=== PATIENT | male | born 1955 | race Caucasian/White ===

== ENCOUNTER → 2018-03-30 | Outpatient (CLI) | payer MEDICARE, OTHER ==
--- NOTE | 2018-03-31 12:01 | XR ---
EXAMINATION TYPE: XR tibia fibula RT DATE OF EXAM: 03/30/2018 COMPARISON: None HISTORY: Cellulitis right stump TECHNIQUE: Right tibia and fibula are examined in 2 views. 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 Soft tissues below the knee appear intact. Suspicious erosions to suggest osteomyelitis or not identified. Soft tissues appear normal. IMPRESSION: 1. No suspicious changes suggest osteomyelitis. 2. If additional evaluation is required, three-phase bone scan.
== END | disposition home or self-care (01) ==
LOC: RADXRMAIN 15:24
PROVIDERS: ATTEND Family Medicine
DX: L03.115 Cellulitis of right lower limb (principal)

== ENCOUNTER 2018-04-24 22:55 | Emergency (ER) | payer MEDICARE, OTHER ==
[2018-04-24 23:10] VITALS: RESP 16; TEMP 98.3
[2018-04-24] MEDS ORDERED: SODIUM CHLORIDE 0.9% 1,000 ML IV STA ×2 (23:22)
--- NOTE | 2018-04-24 23:28 | ED ---
Seizure HPI - General Chief Complaint: Seizure Stated Complaint: Seizure Time Seen by Provider: 04/24/18 22:59 Source: patient, EMS Mode of arrival: EMS Limitations: no limitations - History of Present Illness Initial Comments: Patient is a 62-year-old male presenting for seizure-like activity. The patient states that while he was at home and that 9:00. Nephew stated that he possibly had a seizure where he started turning blue and he is unsure if he was shaking. He states that he has had similar type symptoms about 4-5 months ago and currently is completely asymptomatic. He states that he does not abuse alcohol although he did in the past but is been long time since he has. - Related Data Allergies Allergy/AdvReac Type Severity Reaction Status Date / Time codeine Allergy Rash/Hives Verified 04/24/18 23:10 Review of Systems ROS Statement: Those systems with pertinent positive or pertinent negative responses have been documented in the HPI. Constitutional: Negative for chills, fatigue and fever. HENT: Negative for congestion. Respiratory: Negative for chest tightness, shortness of breath and wheezing. Negative for cough Cardiovascular: Negative for chest pain and palpitations. Gastrointestinal: Negative for abdominal pain. Negative for abdominal distention, diarrhea, nausea and vomiting. Genitourinary: Negative for dysuria. Musculoskeletal: Negative for back pain, neck pain and neck stiffness. Skin: Negative for color change. Neurological: Negative for dizziness, speech difficulty, weakness and light-hea dedness. Positive for seizure-like activity Psychiatric/Behavioral: Negative for agitation and confusion. Negative for anxiety ROS Other: All systems not noted in ROS Statement are negative. Past Medical History Additional Past Medical History / Comment(s): borderline hypertension and diabetes History of Any Multi-Drug Resistant Organisms: MRSA Past Surgical History: Back Surgery, Orthopedic Surgery Additional Past Surgical History / Comment(s): Bone grafts in feet, below the knee right amputation, larynx surgery Past Psychological History: No Psychological Hx Reported Smoking Status: Former smoker Past Alcohol Use History: Rare Past Drug Use History: None Reported General Exam - General Exam Comments Initial Comments: Constitutional: Pt appears well-developed and well-nourished. No distress. Head: Normocephalic and atraumatic. Eyes: EOM are normal. Neck: Normal range of motion. Neck supple. Cardiovascular: Normal rate, regular rhythm, S1 normal, S2 normal and normal heart sounds. Exam reveals no gallop and no friction rub. No murmur heard. Pulmonary/Chest: Effort normal and breath sounds normal. No tachypnea and no bradypnea. No respiratory distress. No wheezes or rales noted. Abdominal: Soft. Bowel sounds are normal. Pt exhibits no shifting dullness, no distension, no pulsatile liver, no fluid wave, no abdominal bruit and no ascites. There is no rigidity, no rebound, no guarding, no tenderness at McBurney's point and negative Ballard's sign. There is no tenderness. Musculoskeletal: Normal range of motion. Neurological: Pt is alert and oriented to person, place, and time. No cranial nerve deficit. Skin: Skin is warm and dry. No rash noted. Pt is not diaphoretic. No erythema. No pallor. Psychiatric: Pt has a normal mood and affect. Pt behavior is normal. Thought content normal. Limitations: no limitations Course Vital Signs 04/24/18 04/25/18 22:57 01:18 Temperature 98.3 F Pulse Rate 107 H 94 Respiratory 16 16 Rate Blood Pressure 153/94 142/92 O2 Sat by Pulse 88 L 95 Oximetry Medical Decision Making - Medical Decision Making Laboratory studies showed that there is no significant leukocytosis and a letter lites derangements and from a cardiac standpoint, EKG had no significant abnorma l findings and d-dimer was negative. Troponin was also noted to be negative. Original vital signs showed that the patient was hypoxic but this is not to be an error as subsequent vitals were unremarkable. Head CT was also performed and noted to be negative. Patient was questioned multiple times and stated that he did not take any significant medications other than his Keflex however, urine drug screen did test positive for methamphetamines, benzodiazepines and opiates. When questioned further, the patient currently stated that he did didn't remember taking benzodiazepines and opiates but no amphetamines. Nonetheless, the patient was extremely well-appearing and in no acute distress and it was agreed that the patient could follow up closely with PCP in next 1-2 days. Patient was agreeable to plan - Lab Data Result diagrams: 04/24/18 23:38 04/24/18 23:38 Lab Results 04/24/18 04/24/18 04/24/18 Range/Units 23:35 23:38 23:38 WBC 7.8 (3.8-10.6) k/uL RBC 4.77 (4.30-5.90) m/uL Hgb 14.5 (13.0-17.5) gm/dL Hct 45.2 (39.0-53.0) % MCV 94.6 (80.0-100.0) fL MCH 30.4 (25.0-35.0) pg MCHC 32.1 (31.0-37.0) g/dL RDW 14.9 (11.5-15.5) % Plt Count 280 (150-450) k/uL Neutrophils % 81 % Lymphocytes % 12 % Monocytes % 5 % Eosinophils % 0 % Basophils % 0 % Neutrophils # 6.3 (1.3-7.7) k/uL Lymphocytes # 0.9 L (1.0-4.8) k/uL Monocytes # 0.4 (0-1.0) k/uL Eosinophils # 0.0 (0-0.7) k/uL Basophils # 0.0 (0-0.2) k/uL D-Dimer (<0.60) mg/L FEU Sodium 134 L (137-145) mmol/L Potassium 3.7 (3.5-5.1) mmol/L Chloride 99 (98-107) mmol/L Carbon Dioxide 25 (22-30) mmol/L Anion Gap 10 mmol/L BUN 16 (9-20) mg/dL Creatinine 1.12 (0.66-1.25) mg/dL Est GFR (CKD-EPI)AfAm 82 (>60 ml/min/1.73 sqM) Est GFR (CKD-EPI)NonAf 71 (>60 ml/min/1.73 sqM) Glucose 152 H (74-99) mg/dL POC Glucose (mg/dL) (75-99) mg/dL POC Glu Line Mechanic ID Calcium 8.8 (8.4-10.2) mg/dL Total Bilirubin 0.6 (0.2-1.3) mg/dL AST 25 (17-59) U/L ALT 41 (21-72) U/L Alkaline Phosphatase 87 (38-126) U/L Troponin I (0.000-0.034) ng/mL Total Protein 7.0 (6.3-8.2) g/dL Albumin 4.1 (3.5-5.0) g/dL Urine Color Yellow Urine Appearance Clear (Clear) Urine pH 6.5 (5.0-8.0) Ur Specific [place] 1.017 (1.001-1.035) Urine Protein 1+ H (Negative) Urine Glucose (UA) Negative (Negative) Urine Ketones Negative (Negative) Urine Blood Negative (Negative) Urine Nitrite Negative (Negative) Urine Bilirubin Negative (Negative) Urine Urobilinogen <2.0 (<2.0) mg/dL Ur Leukocyte Esterase Negative (Negative) Urine WBC 2 (0-5) /hpf Hyaline Casts 4 H (0-2) /lpf Urine Mucus Rare H (None) /hpf Salicylates <1.0 mg/dL Urine Opiates Screen Detected H (NotDetected) Ur Oxycodone Screen Not Detected (NotDetected) Urine Methadone Screen Not Detected (NotDetected) Ur Propoxyphene Screen Not Detected (NotDetected) Acetaminophen <10.0 ug/mL Ur Barbiturates Screen Not Detected (NotDetected) U Tricyclic Antidepress Not Detected (NotDetected) Ur Phencyclidine Scrn Not Detected (NotDetected) Ur Amphetamines Screen Detected H (NotDetected) U Methamphetamines Scrn Detected H (NotDetected) U Benzodiazepines Scrn Detected H (NotDetected) Urine Cocaine Screen Not Detected (NotDetected) U Marijuana (THC) Screen Not Detected (NotDetected) Serum Alcohol <10 mg/dL 04/24/18 04/24/18 04/25/18 Range/Units 23:38 23:38 00:12 WBC (3.8-10.6) k/uL RBC (4.30-5.90) m/uL Hgb (13.0-17.5) gm/dL Hct (39.0-53.0) % MCV (80.0-100.0) fL MCH (25.0-35.0) pg MCHC (31.0-37.0) g/dL RDW (11.5-15.5) % Plt Count (150-450) k/uL Neutrophils % % Lymphocytes % % Monocytes % % Eosinophils % % Basophils % % Neutrophils # (1.3-7.7) k/uL Lymphocytes # (1.0-4.8) k/uL Monocytes # (0-1.0) k/uL Eosinophils # (0-0.7) k/uL Basophils # (0-0.2) k/uL D-Dimer 0.35 (<0.60) mg/L FEU Sodium (137-145) mmol/L Potassium (3.5-5.1) mmol/L Chloride (98-107) mmol/L Carbon Dioxide (22-30) mmol/L Anion Gap mmol/L BUN (9-20) mg/dL Creatinine (0.66-1.25) mg/dL Est GFR (CKD-EPI)AfAm (>60 ml/min/1.73 sqM) Est GFR (CKD-EPI)NonAf (>60 ml/min/1.73 sqM) Glucose (74-99) mg/dL POC Glucose (mg/dL) 123 H (75-99) mg/dL POC Glu Line Mechanic ID Shaneka Henriquez Calcium (8.4-10.2) mg/dL Total Bilirubin (0.2-1.3) mg/dL AST (17-59) U/L ALT (21-72) U/L Alkaline Phosphatase (38-126) U/L Troponin I <0.012 (0.000-0.034) ng/mL Total Protein (6.3-8.2) g/dL Albumin (3.5-5.0) g/dL Urine Color Urine Appearance (Clear) Urine pH (5.0-8.0) Ur Specific [place] (1.001-1.035) Urine Protein (Negative) Urine Glucose (UA) (Negative) Urine Ketones (Negative) Urine Blood (Negative) Urine Nitrite (Negative) Urine Bilirubin (Negative) Urine Urobilinogen (<2.0) mg/dL Ur Leukocyte Esterase (Negative) Urine WBC (0-5) /hpf Hyaline Casts (0-2) /lpf Urine Mucus (None) /hpf Salicylates mg/dL Urine Opiates Screen (NotDetected) Ur Oxycodone Screen (NotDetected) Urine Methadone Screen (NotDetected) Ur Propoxyphene Screen (NotDetected) Acetaminophen ug/mL Ur Barbiturates Screen (NotDetected) U Tricyclic Antidepress (NotDetected) Ur Phencyclidine Scrn (NotDetected) Ur Amphetamines Screen (NotDetected) U Methamphetamines Scrn (NotDetected) U Benzodiazepines Scrn (NotDetected) Urine Cocaine Screen (NotDetected) U Marijuana (THC) Screen (NotDetected) Serum Alcohol mg/dL - EKG Data EKG Comments: EKG shows sinus tachycardia with rate of 10 3 bpm, CA interval 142, QRS 90, QTC 471. There is no significant ST depressions or elevations. Disposition Clinical Impression: Seizure-like activity Disposition: HOME SELF-CARE Condition: Good Instructions (If sedation given, give patient instructions): Recurrent Seizures in Adults (ED) Is patient prescribed a controlled substance at d/c from ED?: No Referrals: Luis Alberto Amezcua DO [Primary Care Provider] - 1-2 days Time of Disposition: 01:34
[2018-04-24 23:57] LABS: Basophils % (A) 0 %; Eosinophils % (A) 0 %; HCT 45.2 % (39.0-53.0); HGB 14.5 gm/dL (13.0-17.5); Lymphocytes # (A) 0.9 k/uL (1.0-4.8); Lymphocytes % (A) 12 %; MCH 30.4 pg (25.0-35.0); MCHC 32.1 g/dL (31.0-37.0); MCV 94.6 fL (80.0-100.0); Mean Platelet Volume 6.6; Monocytes # (A) 0.4 k/uL (0-1.0); Monocytes % (A) 5 %; Neutrophils # (A) 6.3 k/uL (1.3-7.7); Neutrophils % (A) 81 %; Platelet Count 280 k/uL (150-450); RBC 4.77 m/uL (4.30-5.90); RDW 14.9 % (11.5-15.5); WBC 7.8 k/uL (3.8-10.6)
[2018-04-25 00:08] LABS: ALT 41 U/L (21-72); AST 25 U/L (17-59); Acetaminophen <10.0 ug/mL; Albumin 4.1 g/dL (3.5-5.0); Alcohol <10 mg/dL; Alkaline Phosphatase 87 U/L (38-126); Anion Gap 10 mmol/L; Blood Urea Nitrogen 16 mg/dL (9-20); Calcium 8.8 mg/dL (8.4-10.2); Carbon Dioxide 25 mmol/L (22-30); Chloride 99 mmol/L (98-107); Glucose 152 mg/dL (74-99); Potassium 3.7 mmol/L (3.5-5.1); Salicylate <1.0 mg/dL; Sodium 134 mmol/L (137-145); Total Bilirubin 0.6 mg/dL (0.2-1.3)
[2018-04-25 00:17] LABS: Glucose,Whole Blood 123 mg/dL (75-99)
--- NOTE | 2018-04-25 00:42 | XR ---
EXAM: XR Chest, 2 Views CLINICAL HISTORY: ITS.REASON XR Reason: Pain TECHNIQUE: Frontal and lateral views of the chest. COMPARISON: No relevant prior studies available. FINDINGS: Lungs: Unremarkable. No consolidation. Pleural space: Unremarkable. No pneumothorax. Heart: Unremarkable. No cardiomegaly. Mediastinum: Unremarkable. Bones/joints: No acute fracture. IMPRESSION: No acute findings.
--- NOTE | 2018-04-25 00:57 | CT ---
EXAM: CT Head Without Intravenous Contrast CLINICAL HISTORY: ITS.REASON CT Reason: seizure activity TECHNIQUE: Axial computed tomography images of the head/brain without intravenous contrast. CTDI is 49 mGy and DLP is 1133 mGy-cm. This CT exam was performed using one or more of the following dose reduction techniques: automated exposure control, adjustment of the mA and/or kV according to patient size, and/or use of iterative reconstruction technique. COMPARISON: No relevant prior studies available. FINDINGS: Brain: No hemorrhage. No edema. Ventricles: Unremarkable. No ventriculomegaly. Bones/joints: No acute fracture. Soft tissues: Unremarkable. Sinuses: No fluid levels. Mastoid air cells: Unremarkable as visualized. No mastoid effusion. IMPRESSION: No acute intracranial findings
[2018-04-25 01:04] LABS: Appearance,Urine Clear (Clear); Bilirubin,Urine Negative (Negative); Blood,Urine Negative (Negative); Color,Urine Yellow; Glucose,Urine (UA) Negative (Negative); Hyaline Casts,Urine 4 /lpf (0-2); Ketones,Urine Negative (Negative); Leukocyte Esterase,Urine Negative (Negative); Mucus,Urine Rare /hpf; Nitrite,Urine Negative (Negative); PH, Urine 6.5 (5.0-8.0); Protein,Urine 1+ (Negative); Specific Gravity,Urine 1.017 (1.001-1.035); Urobilinogen,Urine <2.0 mg/dL (<2.0); WBC,Urine 2 /hpf (0-5)
[2018-04-25 01:19] VITALS: BP 142/92; PULSE 94
[2018-04-25 01:21] LABS: Amphetamine Screen,Urine Detected (NotDetected); Barbiturate Screen,Urine Not Detected (NotDetected); Benzodiazepines Screen,Urine Detected (NotDetected); Cocaine Screen,Urine Not Detected (NotDetected); Methadone Screen, Urine Not Detected (NotDetected); Opiate Screen,Urine Detected (NotDetected); Oxycodone Screen, Urine Not Detected (NotDetected); Phencyclidine Screen,Urine Not Detected (NotDetected); Tricyclic Antidepressant,Urine Not Detected (NotDetected); Urn Cannabinoid Scrn Not Detected (NotDetected)
== END 2018-04-25 01:45 | disposition home or self-care (01) ==
LOC: EC 22:55
DX: R56.9 Unspecified convulsions (principal); R00.0 Tachycardia, unspecified; R82.5 Elevated urine levels of drugs, medicaments and biological substances; Z87.891 Personal history of nicotine dependence; Z88.5 Allergy status to narcotic agent; Z86.14 Personal history of Methicillin resistant Staphylococcus aureus infection; Z89.511 Acquired absence of right leg below knee
CPT/HCPCS: 36415 ×2; 93005; 85379; 80053; 84484; 85025; 81001; 80306; 83520 ×2; 71046; 70450; 99285; 96360; 96361; G0480; 80320

== ENCOUNTER 2020-04-05 18:42 | Inpatient (IN) | payer MEDICARE, OTHER ==
[2020-04-05] MEDS ORDERED: HYDROmorphone 0.5 MG/0.5 ML SYRINGE IVP STA ×2 (19:08→21:08)
[2020-04-05 19:28] LABS: Basophils # (A) 0.1 k/uL (0-0.2); Basophils % (A) 0 %; Eosinophils # (A) 0.1 k/uL (0-0.7); Eosinophils % (A) 1 %; HCT 43.1 % (39.0-53.0); Lymphocytes # (A) 0.7 k/uL (1.0-4.8); Lymphocytes % (A) 3 %; MCH 30.7 pg (25.0-35.0); MCHC 32.5 g/dL (31.0-37.0); MCV 94.6 fL (80.0-100.0); Mean Platelet Volume 8.4; Monocytes # (A) 0.9 k/uL (0-1.0); Monocytes % (A) 4 %; Neutrophils # (A) 22.2 k/uL (1.3-7.7); Neutrophils % (A) 92 %; Platelet Count 282 k/uL (150-450); RBC 4.56 m/uL (4.30-5.90); RDW 13.7 % (11.5-15.5)
[2020-04-05 19:40] LABS: Calcium 9.3 mg/dL (8.4-10.2); Total Bilirubin 1.2 mg/dL (0.2-1.3); Total Protein 6.6 g/dL (6.3-8.2)
[2020-04-05 19:44] LABS: INR 1.1 (<1.2); Prothrombin Time 11.5 sec (9.0-12.0)
[2020-04-05 20:05] LABS: Potassium 4.9 mmol/L (3.5-5.1)
--- NOTE | 2020-04-05 20:19 | ED ---
General Adult HPI - General Source: patient, family, RN notes reviewed, old records reviewed Mode of arrival: EMS Limitations: no limitations <Scottie Beckford - Last Filed: 04/05/20 21:37> <Karina Olsen - Last Filed: 04/05/20 23:51> - General Chief complaint: Psychiatric Symptoms Stated complaint: Mental Health Time Seen by Provider: 04/05/20 18:55 - History of Present Illness Initial comments: This is a 64-year-old male who presents to the emergency department after having cut both of his wrists and attempt at suicide. Patient states he did it because he is absolutely useless to his family and he wanted to . Patient complains of bilateral wrist pain but has no other complaints. According to EMS he was in the shower so was difficult to assess how much blood loss he had but it didn't appear that his right wrist was bleeding particularly heavy. Patient is not willing to state when this occurred. Patient denies any chest pain or difficulty breathing. Patient denies any abdominal pain patient nausea vomiting. Patient denies any ingestion of anything. (Scottie Beckford) - Related Data Home Medications Medication Instructions Recorded Confirmed Bumetanide 2 mg PO BID 04/05/20 04/05/20 Lisinopril [Zestril] 10 mg PO DAILY 04/05/20 04/05/20 Allergies Allergy/AdvReac Type Severity Reaction Status Date / Time codeine Allergy Rash/Hives Verified 04/05/20 21:57 Review of Systems ROS Other: All systems not noted in ROS Statement are negative. <Scottie Beckford - Last Filed: 04/05/20 21:37> ROS Other: All systems not noted in ROS Statement are negative. <Karina Olsen - Last Filed: 04/05/20 23:51> ROS Statement: Those systems with pertinent positive or pertinent negative responses have been documented in the HPI. Past Medical History Past Medical History: No Reported History Additional Past Medical History / Comment(s): borderline hypertension and diabetes History of Any Multi-Drug Resistant Organisms: MRSA Past Surgical History: Back Surgery, Orthopedic Surgery Additional Past Surgical History / Comment(s): Bone grafts in feet, below the knee right amputation, larynx surgery Past Psychological History: No Psychological Hx Reported Past Alcohol Use History: Rare Past Drug Use History: None Reported <Scottie Beckford - Last Filed: 04/05/20 21:37> General Exam Limitations: no limitations <Scottie Beckford - Last Filed: 04/05/20 21:37> - General Exam Comments Initial Comments: GENERAL: Patient is well-developed and well-nourished. Patient is nontoxic and well- hydrated and is in mild distress. ENT: Neck is soft and supple. No significant lymphadenopathy is noted. Oropharynx is clear. Moist mucous membranes. Neck has full range of motion without eliciting any pain. EYES: The sclera were anicteric and conjunctiva were pink and moist. Extraocular movements were intact and pupils were equal round and reactive to light. Eyelids were unremarkable. PULMONARY: Unlabored respirations. Good breath sounds bilaterally. No audible rales rhonchi or wheezing was noted. CARDIOVASCULAR: Patient is tachycardic at about 140 beats a minute. Patient has good cap refill bilateral hands. Patient has good manual arch pulse bilaterally as well ABDOMEN: Soft and nontender with normal bowel sounds. SKIN: Patient seems a little pale. Patient has 2 large lacerations over both wrists the right being deeper than the left with what appears to be some small arterial bleeds. Left wrist has a large laceration there appears to be some venous bleeding no arterial bleeding is noted. Patient has good capillary refill in both hands. The left laceration measures about 5 cm the right laceration also measures approximately 5 cm. NEUROLOGIC: Patient is alert and oriented x3. Cranial nerves II through XII are grossly intact. Motor and sensory are also intact. Normal speech, volume and content. Symmetrical smile. MUSCULOSKELETAL: Patient has a BKA on the right. LYMPHATICS: No significant lymphadenopathy is noted PSYCHIATRIC: Patient states he purposely cut both of his wrists and attempt at suicide (Scottie Beckford) Course Vital Signs 04/05/20 04/05/20 04/05/20 18:51 20:00 21:26 Temperature 96.0 F L Pulse Rate 140 H 80 108 H Respiratory 18 135 H 17 Rate Blood Pressure 132/81 131/87 135/80 O2 Sat by Pulse 92 L 100 94 L Oximetry 04/05/20 23:10 Temperature Pulse Rate 101 H Respiratory 18 Rate Blood Pressure 131/74 O2 Sat by Pulse 95 Oximetry Procedures - Laceration Laceration #1 Consent Obtained: verbal consent Indication: laceration Site: upper extremity (left wrist) Size (cm): 8 Description: linear Depth: arterial injury Anesthetic Used: lidocaine 1% Anesthesia Technique: local infiltration Amount (mls): 9 Pre-repair: irrigated extensively Type of Sutures: nylon (12), vicryl (3) Size of Sutures: 4-0 Technique: simple, interrupted Patient Tolerated Procedure: well, no complications Laceration #2 Consent Obtained: verbal consent Indication: laceration Site: upper extremity (Right) Size (cm): 10 Description: linear Depth: arterial injury Anesthetic Used: lidocaine 1% Anesthesia Technique: local infiltration Amount (mls): 10 Pre-repair: irrigated extensively Type of Sutures: nylon Size of Sutures: 4-0 Number of Sutures: 13 Technique: simple, interrupted Patient Tolerated Procedure: well, no complications <Karina Olsen - Last Filed: 04/05/20 23:51> Medical Decision Making - Lab Data Result diagrams: 04/05/20 19:21 04/05/20 19:21 <Scottie Beckford - Last Filed: 04/05/20 21:37> - Lab Data Result diagrams: 04/05/20 22:42 04/05/20 19:21 <Karina Olsen - Last Filed: 04/05/20 23:51> - Medical Decision Making EKG shows a sinus tachycardia at 146 bpm GA interval is 122 QRS 70 QT interval is 282 QTC is 439 per patient's EKG shows no ST segment elevation or depression. Chest x-ray shows no acute abnormality. I did a CT angiogram of the right upper extremity and according to the radiologist there was good flow into the hand. Patient did have good arch pulses bilaterally. Patient had good cap refill bilaterally. I spoke with Dr. Iraheta he agreed to admit the patient admitted the patient I consulted medicine from [facility] physician's. Spoke with Dr. garcia he agreed to be on consult. (Scottie Beckford) - Lab Data Lab Results 04/05/20 04/05/20 04/05/20 Range/Units 19:20 19:21 19:21 WBC 24.0 H (3.8-10.6) k/uL RBC 4.56 (4.30-5.90) m/uL Hgb 14.0 (13.0-17.5) gm/dL Hct 43.1 (39.0-53.0) % MCV 94.6 (80.0-100.0) fL MCH 30.7 (25.0-35.0) pg MCHC 32.5 (31.0-37.0) g/dL RDW 13.7 (11.5-15.5) % Plt Count 282 (150-450) k/uL MPV 8.4 Neutrophils % 92 % Lymphocytes % 3 % Monocytes % 4 % Eosinophils % 1 % Basophils % 0 % Neutrophils # 22.2 H (1.3-7.7) k/uL Lymphocytes # 0.7 L (1.0-4.8) k/uL Monocytes # 0.9 (0-1.0) k/uL Eosinophils # 0.1 (0-0.7) k/uL Basophils # 0.1 (0-0.2) k/uL PT 11.5 (9.0-12.0) sec INR 1.1 (<1.2) APTT 22.0 (22.0-30.0) sec Sodium (137-145) mmol/L Potassium (3.5-5.1) mmol/L Chloride (98-107) mmol/L Carbon Dioxide (22-30) mmol/L Anion Gap mmol/L BUN (9-20) mg/dL Creatinine (0.66-1.25) mg/dL Est GFR (CKD-EPI)AfAm (>60 ml/min/1.73 sqM) Est GFR (CKD-EPI)NonAf (>60 ml/min/1.73 sqM) Glucose (74-99) mg/dL Calcium (8.4-10.2) mg/dL Total Bilirubin (0.2-1.3) mg/dL AST (17-59) U/L ALT (4-49) U/L Alkaline Phosphatase (38-126) U/L Total Protein (6.3-8.2) g/dL Albumin (3.5-5.0) g/dL Salicylates mg/dL Urine Opiates Screen (NotDetected) Ur Oxycodone Screen (NotDetected) Urine Methadone Screen (NotDetected) Ur Propoxyphene Screen (NotDetected) Acetaminophen ug/mL Ur Barbiturates Screen (NotDetected) U Tricyclic Antidepress (NotDetected) Ur Phencyclidine Scrn (NotDetected) Ur Amphetamines Screen (NotDetected) U Methamphetamines Scrn (NotDetected) U Benzodiazepines Scrn (NotDetected) Urine Cocaine Screen (NotDetected) U Marijuana (THC) Screen (NotDetected) Blood Type A Positive Blood Type Confirm Blood Type Recheck No Previous Record Bld Type Recheck Status CABO Indicated Antibody Screen NEGATIVE Spec Expiration Date 04/08/2020 - 231904/05/20 04/05/20 04/05/20 Range/Units 19:21 19: 19: WBC (3.8-10.6) k/uL RBC (4.30-5.90) m/uL Hgb (13.0-17.5) gm/dL Hct (39.0-53.0) % MCV (80.0-100.0) fL MCH (25.0-35.0) pg MCHC (31.0-37.0) g/dL RDW (11.5-15.5) % Plt Count (150-450) k/uL MPV Neutrophils % % Lymphocytes % % Monocytes % % Eosinophils % % Basophils % % Neutrophils # (1.3-7.7) k/uL Lymphocytes # (1.0-4.8) k/uL Monocytes # (0-1.0) k/uL Eosinophils # (0-0.7) k/uL Basophils # (0-0.2) k/uL PT (9.0-12.0) sec INR (<1.2) APTT (22.0-30.0) sec Sodium 130 L (137-145) mmol/L Potassium 4.9 (3.5-5.1) mmol/L Chloride 94 L (98-107) mmol/L Carbon Dioxide 21 L (22-30) mmol/L Anion Gap 15 mmol/L BUN 26 H (9-20) mg/dL Creatinine 1.32 H (0.66-1.25) mg/dL Est GFR (CKD-EPI)AfAm 67 (>60 ml/min/1.73 sqM) Est GFR (CKD-EPI)NonAf 58 (>60 ml/min/1.73 sqM) Glucose 238 H (74-99) mg/dL Calcium 9.3 (8.4-10.2) mg/dL Total Bilirubin 1.2 (0.2-1.3) mg/dL AST 711 H (17-59) U/L ALT 3928 H (4-49) U/L Alkaline Phosphatase 93 (38-126) U/L Total Protein 6.6 (6.3-8.2) g/dL Albumin 4.0 (3.5-5.0) g/dL Salicylates <1.0 mg/dL Urine Opiates Screen (NotDetected) Ur Oxycodone Screen (NotDetected) Urine Methadone Screen (NotDetected) Ur Propoxyphene Screen (NotDetected) Acetaminophen <10.0 ug/mL Ur Barbiturates Screen (NotDetected) U Tricyclic Antidepress (NotDetected) Ur Phencyclidine Scrn (NotDetected) Ur Amphetamines Screen (NotDetected) U Methamphetamines Scrn (NotDetected) U Benzodiazepines Scrn (NotDetected) Urine Cocaine Screen (NotDetected) U Marijuana (THC) Screen (NotDetected) Blood Type Blood Type Confirm A Positive Blood Type Recheck Bld Type Recheck Status Antibody Screen Spec Expiration Date 04/05/20 Range/Units 20:31 WBC (3.8-10.6) k/uL RBC (4.30-5.90) m/uL Hgb (13.0-17.5) gm/dL Hct (39.0-53.0) % MCV (80.0-100.0) fL MCH (25.0-35.0) pg MCHC (31.0-37.0) g/dL RDW (11.5-15.5) % Plt Count (150-450) k/uL MPV Neutrophils % % Lymphocytes % % Monocytes % % Eosinophils % % Basophils % % Neutrophils # (1.3-7.7) k/uL Lymphocytes # (1.0-4.8) k/uL Monocytes # (0-1.0) k/uL Eosinophils # (0-0.7) k/uL Basophils # (0-0.2) k/uL PT (9.0-12.0) sec INR (<1.2) APTT (22.0-30.0) sec Sodium (137-145) mmol/L Potassium (3.5-5.1) mmol/L Chloride (98-107) mmol/L Carbon Dioxide (22-30) mmol/L Anion Gap mmol/L BUN (9-20) mg/dL Creatinine (0.66-1.25) mg/dL Est GFR (CKD-EPI)AfAm (>60 ml/min/1.73 sqM) Est GFR (CKD-EPI)NonAf (>60 ml/min/1.73 sqM) Glucose (74-99) mg/dL Calcium (8.4-10.2) mg/dL Total Bilirubin (0.2-1.3) mg/dL AST (17-59) U/L ALT (4-49) U/L Alkaline Phosphatase (38-126) U/L Total Protein (6.3-8.2) g/dL Albumin (3.5-5.0) g/dL Salicylates mg/dL Urine Opiates Screen Detected H (NotDetected) Ur Oxycodone Screen Not Detected (NotDetected) Urine Methadone Screen Not Detected (NotDetected) Ur Propoxyphene Screen Not Detected (NotDetected) Acetaminophen ug/mL Ur Barbiturates Screen Not Detected (NotDetected) U Tricyclic Antidepress Not Detected (NotDetected) Ur Phencyclidine Scrn Not Detected (NotDetected) Ur Amphetamines Screen Not Detected (NotDetected) U Methamphetamines Scrn Not Detected (NotDetected) U Benzodiazepines Scrn Not Detected (NotDetected) Urine Cocaine Screen Not Detected (NotDetected) U Marijuana (THC) Screen Detected H (NotDetected) Blood Type Blood Type Confirm Blood Type Recheck Bld Type Recheck Status Antibody Screen Spec Expiration Date Critical Care Time Critical Care Time: Yes Total Critical Care Time: 35 <Scottie Beckford - Last Filed: 04/05/20 21:37> Disposition Time of Disposition: 21:26 <Scottie Beckford - Last Filed: 04/05/20 21:37> <Karina Olsen - Last Filed: 04/05/20 23:51> Clinical Impression: Suicide attempt, Laceration of wrist, left, Laceration of wrist, right, Tachycardia, Hepatitis, Leukocytosis, Depression Disposition: ADMITTED IP TO THIS HOSP
[2020-04-05] MEDS ORDERED: BACITRACIN OINT 1 EACH PACKET TOPICAL ONE (20:20)
[2020-04-05] MEDS ORDERED: LIDOCAINE 1% INJ 10MG/ML (20 ML MDV) SQ ONE (20:20)
[2020-04-05 20:38] LABS: Acetaminophen <10.0 ug/mL; Salicylate <1.0 mg/dL
[2020-04-05 20:47] LABS: Cocaine Screen,Urine Not Detected (NotDetected); Phencyclidine Screen,Urine Not Detected (NotDetected); Urn Cannabinoid Scrn Detected (NotDetected)
[2020-04-05 20:48] LABS: Amphetamine Screen,Urine Not Detected (NotDetected); Barbiturate Screen,Urine Not Detected (NotDetected); Benzodiazepines Screen,Urine Not Detected (NotDetected); Methadone Screen, Urine Not Detected (NotDetected); Opiate Screen,Urine Detected (NotDetected); Oxycodone Screen, Urine Not Detected (NotDetected); Tricyclic Antidepressant,Urine Not Detected (NotDetected)
--- NOTE | 2020-04-05 21:02 | XR ---
EXAMINATION TYPE: XR chest 2V DATE OF EXAM: 04/05/2020 COMPARISON: 04/25/2018. HISTORY: Shortness of breath. TECHNIQUE: Frontal and lateral views of the chest are obtained. FINDINGS: There is no focal air space opacity, pleural effusion, or pneumothorax seen. The cardiac silhouette size is within normal limits. The osseous structures are intact. IMPRESSION: No acute cardiopulmonary process.
[2020-04-05] MEDS ORDERED: SODIUM CHLORIDE 0.9% 1,000 ML IV ONE ×2 (21:08→21:38)
[2020-04-05] MEDS ORDERED: DIPH,PERTUS(ACELL)TETVAC-LF 0.5 ML VIAL IM ONE (21:17)
--- NOTE | 2020-04-05 21:25 | CT ---
CTA RIGHT UPPER EXTREMITY. History: Right wrist laceration. Technique: Axial CTA images of right upper extremity was obtained following the administration of 10 0 mL of Isovue 370 intravenous contrast. Sagittal and coronal reformats, and MIP reformats, were prov ided and reviewed. Comparison: None. Findings: The visualized right subclavian, axillary, brachial, radial, ulnar and interosseous arteries are julio sly intact. No evidence of occlusion, high-grade stenosis or aneurysm. No significant contrast extrav asation is seen. There is soft tissue irregularity/laceration at the volar aspect of the wrist. No significant fluid c ollection, gas or radiopaque foreign body. No acute osseous abnormality. Impression: Right wrist laceration. Otherwise no significant abnormality of the right upper extremity angiogram.
--- NOTE | 2020-04-05 22:52 | US ---
EXAMINATION TYPE: US gallbladder DATE OF EXAM: 04/05/2020 COMPARISON: NONE CLINICAL HISTORY: Right upper quadrant abdominal pain. Pain in RUQ. EXAM MEASUREMENTS: Liver Length: 15.2 cm CBD: 1.07 cm Right Kidney: 9.8 x 5.2 x 4.7 cm Limited due to patient body habitus and gas. Pancreas: Obscured by gas. Liver: Appears to be coarse and to have an increased echogenicity. Gallbladder: Not visualized at this time by ultrasound. Evidence for sonographic Ballard's sign: No CBD: Appears dilated. Right Kidney: Possible column of Rodo versus hypoechoic area seen measuring 2.2 x 2.8 x 2.0 cm. IMPRESSION: Gallbladder not seen. Common bile duct is large and measures 11 mm but no dilation of the intrahepati c bile ducts. No focal liver defect. Normal right kidney.
[2020-04-05 22:59] LABS: Basophils # (A) 0.1 k/uL (0-0.2); Basophils % (A) 0 %; Eosinophils # (A) 0.1 k/uL (0-0.7); Eosinophils % (A) 1 %; HCT 37.1 % (39.0-53.0); HGB 12.1 gm/dL (13.0-17.5); Lymphocytes # (A) 0.5 k/uL (1.0-4.8); Lymphocytes % (A) 3 %; MCH 31.1 pg (25.0-35.0); MCHC 32.7 g/dL (31.0-37.0); MCV 95.1 fL (80.0-100.0); Mean Platelet Volume 8.5; Monocytes % (A) 5 %; Neutrophils # (A) 18.4 k/uL (1.3-7.7); Neutrophils % (A) 91 %; Platelet Count 244 k/uL (150-450); RDW 13.9 % (11.5-15.5); WBC 20.2 k/uL (3.8-10.6)
[2020-04-06] MEDS ORDERED: MORPHINE SULFATE 2 MG/ML SYRINGE IVP STA (02:09)
[2020-04-06] MEDS ORDERED: MELATONIN 5 MG TABLET PO ONE (02:09)
--- NOTE | 2020-04-06 03:39 | P.CONS ---
History of Present Illness - Reason for Consult Consult date: 04/06/20 - History of Present Illness Patient is a 64-year-old male with a PMH of hypertension, depression, and right BKA, who was brought in by EMS after he attempted suicide by cutting both his wrists. The patient notes that his social situation has gradually worsened and that he no longer finds magali in his life and wanted to "end it all". As per the ED documentation, the patient was found by EMS in his bathtub and that it was difficult to assess the extent of blood loss. The patient also refused to elaborate further on when everything happened. He reported chronic lower back pain along with bilateral wrist pain, 4 out of 10 at time of interview. Patient also reported occasional right upper quadrant cramping abdominal pain, not associated with meals, nonradiating, unable to quantify. Denied additional complaints. Denied chest pain, shortness of breath, fever, chills, cough, nausea, vomiting, diarrhea. Patient underwent an extensive evaluation in the emergency room with upper extremity CTA unremarkable. Laboratory evaluation revealed leukocytosis of 24, AST 711, ALT 3928, total bilirubin 1.2, alk phos 93, hemoglobin 14, sodium 130, chloride 94, CO2 21, BUN 26, creatinine 1.32, glucose 238. Review of Systems Pertinent positives and negatives as discussed in HPI, a complete review of systems was performed and all other systems are negative. Past Medical History Past Medical History: Asthma, Diabetes Mellitus, Hypertension, Respiratory Disorder Additional Past Medical History / Comment(s): borderline hypertension, borderline diabetes; empysema, asthma, chronic low back pain and knee pain History of Any Multi-Drug Resistant Organisms: MRSA Year Discovered:: 1997 MDRO Source:: right leg Past Surgical History: Back Surgery, Orthopedic Surgery, Tonsillectomy Additional Past Surgical History / Comment(s): Bone grafts to right leg, right below the knee amputation, larynx surgery, left knee athroscopies, multiple falls Past Anesthesia/Blood Transfusion Reactions: No Reported Reaction Past Psychological History: Anxiety, Depression Additional Psychological History / Comment(s): states has previously tried overdosing but never on a mental health unit; reports depression and anxiety; in 2004, lives alone in [facility] [address], has right BKA-uses prosthesis; 04/05/2020 suicide attempt-lacerations to bilateral wrists requiring sutures. Smoking Status: Former smoker Past Alcohol Use History: Rare Additional Past Alcohol Use History / Comment(s): states rum rarely Past Drug Use History: Marijuana, Opiates Additional Drug Use History / Comment(s): states has taken norco 5s and marijuana recently Medications and Allergies Home Medications Medication Instructions Recorded Confirmed Type Bumetanide 2 mg PO BID 04/05/20 04/05/20 History Lisinopril [Zestril] 10 mg PO DAILY 04/05/20 04/05/20 History Allergies Allergy/AdvReac Type Severity Reaction Status Date / Time codeine Allergy Rash/Hives Verified 04/05/20 21:57 Physical Exam Vitals: Vital Signs Temp Pulse Resp BP Pulse Ox 04/05/20 23:10 101 H 18 131/74 95 04/05/20 21:26 108 H 17 135/80 94 L 04/05/20 20:00 80 135 H 131/87 100 04/05/20 18:51 96.0 F L 140 H 18 132/81 92 L Intake and Output 04/05/20 04/05/20 04/06/20 14:59 22:59 06:59 Other: Weight 117.934 kg 117.934 kg General: non toxic, no distress, appears at stated age, normal weight Derm: Bilateral wrist dressings in place, no unusual ecchymoses, warm, dry Head: atraumatic, normocephalic, symmetric Eyes: EOMI, no lid lag, anicteric sclera, pupils equal round reactive to light ENT: Nose and ears atraumatic, no thrush, no pharyngeal erythema Neck: No thyromegaly, no cervical lymphadenopathy, trachea midline, supple Mouth: no lip lesion, mucus membranes moist Cardiovascular: S1S2 reg, no murmur, positive posterior tibial pulse bilateral, no edema, capillary refill less than 2 seconds Lungs: CTA bilateral, no rhonchi, no rales , no accessory muscle use Abdominal: soft, nontender to palpation, no guarding, no appreciable organomegaly, normal bowel sounds Ext: no gross muscle atrophy, right BKA, muscle strength 5 out of 5 in all 4 extremities grossly, no contractures, Neuro: CN II-XI grossly intact, light touch intact all 4 extremities, finger to nose within normal limits, Psych: Alert, oriented, depressed affect Results CBC & Chem 7: 04/05/20 22:42 04/05/20 19:21 Labs: Abnormal Lab Results - Last 24 Hours (Table) 04/05/20 04/05/20 04/05/20 Range/Units 19:21 19:21 20:31 WBC 24.0 H (3.8-10.6) k/uL RBC (4.30-5.90) m/uL Hgb (13.0-17.5) gm/dL Hct (39.0-53.0) % Neutrophils # 22.2 H (1.3-7.7) k/uL Lymphocytes # 0.7 L (1.0-4.8) k/uL Sodium 130 L (137-145) mmol/L Chloride 94 L (98-107) mmol/L Carbon Dioxide 21 L (22-30) mmol/L BUN 26 H (9-20) mg/dL Creatinine 1.32 H (0.66-1.25) mg/dL Glucose 238 H (74-99) mg/dL AST 711 H (17-59) U/L ALT 3928 H (4-49) U/L Urine Opiates Screen Detected H (NotDetected) U Marijuana (THC) Screen Detected H (NotDetected) 04/05/20 Range/Units 22:42 WBC 20.2 H (3.8-10.6) k/uL RBC 3.90 L (4.30-5.90) m/uL Hgb 12.1 L (13.0-17.5) gm/dL Hct 37.1 L (39.0-53.0) % Neutrophils # 18.4 H (1.3-7.7) k/uL Lymphocytes # 0.5 L (1.0-4.8) k/uL Sodium (137-145) mmol/L Chloride (98-107) mmol/L Carbon Dioxide (22-30) mmol/L BUN (9-20) mg/dL Creatinine (0.66-1.25) mg/dL Glucose (74-99) mg/dL AST (17-59) U/L ALT (4-49) U/L Urine Opiates Screen (NotDetected) U Marijuana (THC) Screen (NotDetected) Assessment and Plan Plan: Abnormal LFTs -Patient vehemently denying alcohol or illicit drug use -Reports daily use of 2-3 g of Tylenol -Denied history of viral hepatitis -Acetaminophen levels less than 10. Urine toxicology unremarkable. -Monitor for now -Consider GI consult if LFTs don't improve -Hepatitis panel ordered Suicide attempt -Psychiatry consult -Suicide precaution with one-to-one observation ANNELISE -Likely due to poor oral intake -Continue with IV fluids and monitor for now Hyponatremia, likely due to poor oral intake -Continue with IV fluids Hyperglycemia -Check A1c Bilateral wrist lacerations -Will defer to surgery service Chronic conditions: HTN -Hold off on home Lisinopril due to ANNELISE
[2020-04-06 07:14] LABS: Glucose,Whole Blood 136 mg/dL (75-99)
[2020-04-06] MEDS ORDERED: ONDANSETRON 4 MG/2 ML VIAL IVP PRN (07:40)
[2020-04-06] MEDS ORDERED: ACETAMINOPHEN TAB 325 MG TAB PO PRN (07:40)
[2020-04-06] MEDS ORDERED: MORPHINE SULFATE 2 MG/ML SYRINGE IVP PRN (07:41)
[2020-04-06 07:52] LABS: AST 321 U/L (17-59); African American GFR (CKD) 81 (>60 ml/min/1.73 sqM); Albumin 2.8 g/dL (3.5-5.0); Albumin/Globulin Ratio 1.3; Alkaline Phosphatase 68 U/L (38-126); Anion Gap 7 mmol/L; Blood Urea Nitrogen 27 mg/dL (9-20); Calcium 7.6 mg/dL (8.4-10.2); Carbon Dioxide 24 mmol/L (22-30); Chloride 97 mmol/L (98-107); Globulin 2.1 g/dL; Glucose 138 mg/dL (74-99); Non-African American GFR(CKD) 70 (>60 ml/min/1.73 sqM); Potassium 4.8 mmol/L (3.5-5.1); Sodium 128 mmol/L (137-145); Total Bilirubin 0.5 mg/dL (0.2-1.3); Total Protein 4.9 g/dL (6.3-8.2)
[2020-04-06] MEDS: SODIUM CHLORIDE 0.9% 1,000 ML IV SCH ×2 (08:49→16:07)
[2020-04-06 08:53] LABS: ALT 2454 U/L (4-49)
[2020-04-06] MEDS: HYDROcodone/APAP 5-325MG 1 EACH TAB PO PRN ×3 (09:11→22:31)
[2020-04-06] MEDS: PIPERACILLIN-TAZOBACTAM 3.375 GM in SODIUM CHLORIDE 0.9% 100 ML IVPB SCH ×3 (09:11→22:32)
[2020-04-06 09:25] LABS: Basophils # (A) 0.03 X 10*3/uL (0.00-0.10); Basophils % (A) 0.2 %; Eosinophils # (A) 0.06 X 10*3/uL (0.04-0.35); Eosinophils % (A) 0.4 %; HCT 30.6 % (39.6-50.0); HGB 9.9 g/dL (13.0-17.0); Lymphocytes # (A) 1.43 X 10*3/uL (0.90-5.00); Lymphocytes % (A) 10.3 %; MCH 30.9 pg (27.0-32.0); MCHC 32.4 g/dL (32.0-37.0); MCV 95.6 fL (80.0-97.0); Mean Platelet Volume 11.6 fL (9.5-12.2); Monocytes % (A) 6.5 %; Neutrophils # (A) 11.35 X 10*3/uL (1.80-7.70); Platelet Count 224 X 10*3/uL (140-440); RDW 14.6 % (11.5-14.5); WBC 13.86 X 10*3/uL (4.50-10.00)
[2020-04-06 10:55] LABS: Hemoglobin A1C 6.2 % (4.0-6.0)
--- NOTE | 2020-04-06 11:09 | P.GSCN ---
<Andreea Murillo - Last Filed: 04/06/20 10:45> History of Present Illness Consult date: 04/06/20 History of present illness: CHIEF COMPLAINT: Suicide attempt, bilateral wrist lacerations HISTORY OF PRESENT ILLNESS: This is a 64-year-old male with a known history of hypertension, diabetic, depression, hiatal hernia surgery several years ago and right BKA. Patient was brought into the ER after a suicide attempt by cutting both wrists. Patient was found by EMS in the bathtub. Per chart apparently is difficult to assess the extent of blood loss. Patient's wrists were sutured in the ER. He did receive tetanus vaccination in ER. He is complaining of bilateral wrist pain. He also complains of numbness in his right third finger and tingling sensation in the second finger. He also has been complaining of right upper quadrant abdominal pain over the last 2 months that does worsen aft er eating. He does have a bedside sitter. He does report that he is just been feeling more down and depressed. He's been evaluated by psychiatry. Surgical service was consulted in regards to trauma. Upper extremity CTA was essentially unremarkable. Abdominal ultrasound shows gallbladder not seen. Common bile duct is large and measures 11 mm but no dilation of the intrahepatic bile ducts. No focal liver defect. Patient did have elevated LFTs and elevated white count on admission. Patient denies any nausea or vomiting. Denies any fever chills or sweats. Denies any diarrhea or constipation. He denies any alcohol use. He does report using Tylenol 500 mg a couple times a day. PAST MEDICAL HISTORY: See list. PAST SURGICAL HISTORY: See list. MEDICATIONS: See list. ALLERGIES: See list. SOCIAL HISTORY: No illicit drug use. REVIEW OF SYSTEMS: CONSTITUTIONAL: Denies fever or chills. HEENT: Denies blurred vision, vision changes, or eye pain. Denies hemoptysis CARDIOVASCULAR: Denies chest pain or pressure. RESPIRATORY: No shortness of breath. GASTROINTESTINAL: See HPI for pertinent findings HEMATOLOGIC: Denies bleeding disorders. GENITOURINARY: Denies any blood in urine or increased urinary frequency. SKIN: Denies pruitis. Denies rash. PHYSICAL EXAM: VITAL SIGNS: Reviewed GENERAL: Well-developed in no acute distress. HEENT: No sclera icterus. Extraocular movements grossly intact. Moist buccal mucosa. Head is atraumatic, normocephalic. No nasal drainage. ABDOMEN: Soft. Nondistended. Right upper quadrant tenderness with palpation NEUROLOGIC: Alert and oriented. Cranial nerves II through XII grossly intact. Extremities: Patient has sutures along both wrists. There was bruising along the lacerations. Patient did have blood noted on the dressings which have been changed. Patient's radial pulses 2+ bilaterally. Capillary refill intact bilaterally. Hand rotary drill operator equal bilaterally. Patient has sensation loss on the right third finger. LABORATORY DATA: WBC 20.2 down to 13.86 hemoglobin 12.1 down to 9.9 platelets 224 sodium 128 BUN 27 creatinine 1.32 down to 1.12 glucose 138 Total bili 0.5 AST 711 down to 321 ALT 3928 down to 2454 Urine drug screen opiates detected, acetaminophen level less than 10, marijuana detected Covid negative Hepatitis panel pending IMAGING: Abdominal ultrasound shows gallbladder not seen. Common bile duct is large and measures 11 mm but no dilation of the intrahepatic bile ducts. No focal liver defect. Normal right kidney. Upper extremity CTA: Right wrist laceration otherwise no significant abnormality of the right upper extremity angiogram ASSESSMENT: 1. Suicide attempt with bilateral wrist lacerations 2. Right upper quadrant abdominal pain 3. Elevated LFTs with large common bile duct noted on Doppler ultrasound 4. History of depression PLAN: -Continue supportive care -Continue dressing changes to wrists as needed -Agree with psychiatric evaluation -Continue antibiotics -Continue pain medication as needed -Recommend GI service consult regarding elevated LFTs -No plans for any surgical intervention Thank you for this consultation Physician Strip Presser note has been reviewed by physician. Signing provider agrees with the documented findings, assessment, and plan of care. Past Medical History Past Medical History: Asthma, Diabetes Mellitus, Hypertension, Respiratory Disorder Additional Past Medical History / Comment(s): borderline hypertension, borderline diabetes; empysema, asthma, chronic low back pain and knee pain History of Any Multi-Drug Resistant Organisms: MRSA Year Discovered:: 1997 MDRO Source:: right leg Past Surgical History: Back Surgery, Orthopedic Surgery, Tonsillectomy Additional Past Surgical History / Comment(s): Bone grafts to right leg, right below the knee amputation, larynx surgery, left knee athroscopies, multiple falls Past Anesthesia/Blood Transfusion Reactions: No Reported Reaction Past Psychological History: Anxiety, Depression Additional Psychological History / Comment(s): states has previously tried overdosing but never on a mental health unit; reports depression and anxiety; in 2004, lives alone in [facility] [place] on [address], has right BKA-uses prosthesis; 04/05/2020 suicide attempt-lacerations to bilateral wrists requiring sutures. Smoking Status: Former smoker Past Alcohol Use History: Rare Additional Past Alcohol Use History / Comment(s): states rum rarely Past Drug Use History: Marijuana, Opiates Additional Drug Use History / Comment(s): states has taken norco 5s and marijuana recently Medications and Allergies Home Medications Medication Instructions Recorded Confirmed Type Bumetanide 2 mg PO BID 04/05/20 04/05/20 History Lisinopril [Zestril] 10 mg PO DAILY 04/05/20 04/05/20 History Allergies Allergy/AdvReac Type Severity Reaction Status Date / Time codeine Allergy Rash/Hives Verified 04/05/20 21:57 Surgical - Exam Vital Signs Temp Pulse Resp BP Pulse Ox 96.0 F L 140 H 18 132/81 92 L 04/05/20 18:51 04/05/20 18:51 04/05/20 18:51 04/05/20 18:51 04/05/20 18:51 Results - Labs 04/06/20 05:25 04/06/20 05:25 Abnormal Lab Results - Last 24 Hours (Table) 04/05/20 04/05/20 04/05/20 Range/Units 19:21 19:21 20:31 WBC 24.0 H (3.8-10.6) k/uL RBC (4.30-5.90) m/uL Hgb (13.0-17.5) gm/dL Hct (39.0-53.0) % RDW (11.5-14.5) % Immature Gran # (0.00-0.04) X 10*3/uL Neutrophils # 22.2 H (1.3-7.7) k/uL Lymphocytes # 0.7 L (1.0-4.8) k/uL Sodium 130 L (137-145) mmol/L Chloride 94 L (98-107) mmol/L Carbon Dioxide 21 L (22-30) mmol/L BUN 26 H (9-20) mg/dL Creatinine 1.32 H (0.66-1.25) mg/dL Glucose 238 H (74-99) mg/dL POC Glucose (mg/dL) (75-99) mg/dL Calcium (8.4-10.2) mg/dL AST 711 H (17-59) U/L ALT 3928 H (4-49) U/L Total Protein (6.3-8.2) g/dL Albumin (3.5-5.0) g/dL Urine Opiates Screen Detected H (NotDetected) U Marijuana (THC) Screen Detected H (NotDetected) 04/05/20 04/06/20 04/06/20 Range/Units 22:42 05:25 05:25 WBC 20.2 H 13.86 H (3.8-10.6) k/uL RBC 3.90 L 3.20 L (4.30-5.90) m/uL Hgb 12.1 L 9.9 L (13.0-17.5) gm/dL Hct 37.1 L 30.6 L (39.0-53.0) % RDW 14.6 H (11.5-14.5) % Immature Gran # 0.09 H (0.00-0.04) X 10*3/uL Neutrophils # 18.4 H 11.35 H (1.3-7.7) k/uL Lymphocytes # 0.5 L (1.0-4.8) k/uL Sodium 128 L (137-145) mmol/L Chloride 97 L (98-107) mmol/L Carbon Dioxide (22-30) mmol/L BUN 27 H (9-20) mg/dL Creatinine (0.66-1.25) mg/dL Glucose 138 H (74-99) mg/dL POC Glucose (mg/dL) (75-99) mg/dL Calcium 7.6 L (8.4-10.2) mg/dL AST 321 H (17-59) U/L ALT 2454 H (4-49) U/L Total Protein 4.9 L (6.3-8.2) g/dL Albumin 2.8 L (3.5-5.0) g/dL Urine Opiates Screen (NotDetected) U Marijuana (THC) Screen (NotDetected) 04/06/20 Range/Units 07:12 WBC (3.8-10.6) k/uL RBC (4.30-5.90) m/uL Hgb (13.0-17.5) gm/dL Hct (39.0-53.0) % RDW (11.5-14.5) % Immature Gran # (0.00-0.04) X 10*3/uL Neutrophils # (1.3-7.7) k/uL Lymphocytes # (1.0-4.8) k/uL Sodium (137-145) mmol/L Chloride (98-107) mmol/L Carbon Dioxide (22-30) mmol/L BUN (9-20) mg/dL Creatinine (0.66-1.25) mg/dL Glucose (74-99) mg/dL POC Glucose (mg/dL) 136 H (75-99) mg/dL Calcium (8.4-10.2) mg/dL AST (17-59) U/L ALT (4-49) U/L Total Protein (6.3-8.2) g/dL Albumin (3.5-5.0) g/dL Urine Opiates Screen (NotDetected) U Marijuana (THC) Screen (NotDetected) Diabetes panel 04/05/20 04/06/20 Range/Units 19:21 05:25 Sodium 130 L 128 L (137-145) mmol/L Potassium 4.9 4.8 (3.5-5.1) mmol/L Chloride 94 L 97 L (98-107) mmol/L Carbon Dioxide 21 L 24 (22-30) mmol/L BUN 26 H 27 H (9-20) mg/dL Creatinine 1.32 H 1.12 (0.66-1.25) mg/dL Glucose 238 H 138 H (74-99) mg/dL Calcium 9.3 7.6 L (8.4-10.2) mg/dL AST 711 H 321 H (17-59) U/L ALT 3928 H 2454 H (4-49) U/L Alkaline Phosphatase 93 68 (38-126) U/L Total Protein 6.6 4.9 L (6.3-8.2) g/dL Albumin 4.0 2.8 L (3.5-5.0) g/dL Calcium panel 04/05/20 04/06/20 Range/Units 19:21 05:25 Calcium 9.3 7.6 L (8.4-10.2) mg/dL Albumin 4.0 2.8 L (3.5-5.0) g/dL Pituitary panel 04/05/20 04/06/20 Range/Units 19:21 05:25 Sodium 130 L 128 L (137-145) mmol/L Potassium 4.9 4.8 (3.5-5.1) mmol/L Chloride 94 L 97 L (98-107) mmol/L Carbon Dioxide 21 L 24 (22-30) mmol/L BUN 26 H 27 H (9-20) mg/dL Creatinine 1.32 H 1.12 (0.66-1.25) mg/dL Glucose 238 H 138 H (74-99) mg/dL Calcium 9.3 7.6 L (8.4-10.2) mg/dL Adrenal panel 04/05/20 04/06/20 Range/Units 19: 05:25 Sodium 130 L 128 L (137-145) mmol/L Potassium 4.9 4.8 (3.5-5.1) mmol/L Chloride 94 L 97 L (98-107) mmol/L Carbon Dioxide 21 L 24 (22-30) mmol/L BUN 26 H 27 H (9-20) mg/dL Creatinine 1.32 H 1.12 (0.66-1.25) mg/dL Glucose 238 H 138 H (74-99) mg/dL Calcium 9.3 7.6 L (8.4-10.2) mg/dL Total Bilirubin 1.2 0.5 (0.2-1.3) mg/dL AST 711 H 321 H (17-59) U/L ALT 3928 H 2454 H (4-49) U/L Alkaline Phosphatase 93 68 (38-126) U/L Total Protein 6.6 4.9 L (6.3-8.2) g/dL Albumin 4.0 2.8 L (3.5-5.0) g/dL <Brian Iraheta - Last Filed: 04/06/20 12:36> History of Present Illness History of present illness: As above. Patient doing fairly well as it pertains to the bilateral wrist laceration. He does have a small amount of numbness in the second and third digit right hand. Denies weakness. Some pain with movement however. We'll consult Dr. Laboy for evaluation. Patient's liver enzymes remain elevated although improved. Etiology remains unclear. Await GI evaluation. Appreciate psychiatry evaluation. We'll transfer service to medicine and remain on consult for now. Continue antibiotics for recent laceration. Surgical - Exam Vital Signs Temp Pulse Resp BP Pulse Ox 96.0 F L 140 H 18 132/81 92 L 04/05/20 18:51 04/05/20 18:51 04/05/20 18:51 04/05/20 18:51 04/05/20 18:51 Results - Labs 04/06/20 05:25 04/06/20 05:25 Abnormal Lab Results - Last 24 Hours (Table) 04/05/20 04/05/20 04/05/20 Range/Units 19:21 19:21 20:31 WBC 24.0 H (3.8-10.6) k/uL RBC (4.30-5.90) m/uL Hgb (13.0-17.5) gm/dL Hct (39.0-53.0) % RDW (11.5-14.5) % Immature Gran # (0.00-0.04) X 10*3/uL Neutrophils # 22.2 H (1.3-7.7) k/uL Lymphocytes # 0.7 L (1.0-4.8) k/uL Sodium 130 L (137-145) mmol/L Chloride 94 L (98-107) mmol/L Carbon Dioxide 21 L (22-30) mmol/L BUN 26 H (9-20) mg/dL Creatinine 1.32 H (0.66-1.25) mg/dL Glucose 238 H (74-99) mg/dL POC Glucose (mg/dL) (75-99) mg/dL Hemoglobin A1c (4.0-6.0) % Calcium (8.4-10.2) mg/dL AST 711 H (17-59) U/L ALT 3928 H (4-49) U/L Total Protein (6.3-8.2) g/dL Albumin (3.5-5.0) g/dL Urine Opiates Screen Detected H (NotDetected) U Marijuana (THC) Screen Detected H (NotDetected) 04/05/20 04/06/20 04/06/20 Range/Units 22:42 05:25 05:25 WBC 20.2 H 13.86 H (3.8-10.6) k/uL RBC 3.90 L 3.20 L (4.30-5.90) m/uL Hgb 12.1 L 9.9 L (13.0-17.5) gm/dL Hct 37.1 L 30.6 L (39.0-53.0) % RDW 14.6 H (11.5-14.5) % Immature Gran # 0.09 H (0.00-0.04) X 10*3/uL Neutrophils # 18.4 H 11.35 H (1.3-7.7) k/uL Lymphocytes # 0.5 L (1.0-4.8) k/uL Sodium (137-145) mmol/L Chloride (98-107) mmol/L Carbon Dioxide (22-30) mmol/L BUN (9-20) mg/dL Creatinine (0.66-1.25) mg/dL Glucose (74-99) mg/dL POC Glucose (mg/dL) (75-99) mg/dL Hemoglobin A1c 6.2 H (4.0-6.0) % Calcium (8.4-10.2) mg/dL AST (17-59) U/L ALT (4-49) U/L Total Protein (6.3-8.2) g/dL Albumin (3.5-5.0) g/dL Urine Opiates Screen (NotDetected) U Marijuana (THC) Screen (NotDetected) 04/06/20 04/06/20 04/06/20 Range/Units 05:25 07:12 11:36 WBC (3.8-10.6) k/uL RBC (4.30-5.90) m/uL Hgb (13.0-17.5) gm/dL Hct (39.0-53.0) % RDW (11.5-14.5) % Immature Gran # (0.00-0.04) X 10*3/uL Neutrophils # (1.3-7.7) k/uL Lymphocytes # (1.0-4.8) k/uL Sodium 128 L (137-145) mmol/L Chloride 97 L (98-107) mmol/L Carbon Dioxide (22-30) mmol/L BUN 27 H (9-20) mg/dL Creatinine (0.66-1.25) mg/dL Glucose 138 H (74-99) mg/dL POC Glucose (mg/dL) 136 H 135 H (75-99) mg/dL Hemoglobin A1c (4.0-6.0) % Calcium 7.6 L (8.4-10.2) mg/dL AST 321 H (17-59) U/L ALT 2454 H (4-49) U/L Total Protein 4.9 L (6.3-8.2) g/dL Albumin 2.8 L (3.5-5.0) g/dL Urine Opiates Screen (NotDetected) U Marijuana (THC) Screen (NotDetected) Diabetes panel 04/05/20 04/06/20 04/06/20 Range/Units 19:21 05:25 05:25 Sodium 130 L 128 L (137-145) mmol/L Potassium 4.9 4.8 (3.5-5.1) mmol/L Chloride 94 L 97 L (98-107) mmol/L Carbon Dioxide 21 L 24 (22-30) mmol/L BUN 26 H 27 H (9-20) mg/dL Creatinine 1.32 H 1.12 (0.66-1.25) mg/dL Glucose 238 H 138 H (74-99) mg/dL Hemoglobin A1c 6.2 H (4.0-6.0) % Calcium 9.3 7.6 L (8.4-10.2) mg/dL AST 711 H 321 H (17-59) U/L ALT 3928 H 2454 H (4-49) U/L Alkaline Phosphatase 93 68 (38-126) U/L Total Protein 6.6 4.9 L (6.3-8.2) g/dL Albumin 4.0 2.8 L (3.5-5.0) g/dL Calcium panel 04/05/20 04/06/20 Range/Units 19:21 05:25 Calcium 9.3 7.6 L (8.4-10.2) mg/dL Albumin 4.0 2.8 L (3.5-5.0) g/dL Pituitary panel 04/05/20 04/06/20 Range/Units 19:21 05:25 Sodium 130 L 128 L (137-145) mmol/L Potassium 4.9 4.8 (3.5-5.1) mmol/L Chloride 94 L 97 L (98-107) mmol/L Carbon Dioxide 21 L 24 (22-30) mmol/L BUN 26 H 27 H (9-20) mg/dL Creatinine 1.32 H 1.12 (0.66-1.25) mg/dL Glucose 238 H 138 H (74-99) mg/dL Calcium 9.3 7.6 L (8.4-10.2) mg/dL Adrenal panel 04/05/20 04/06/20 Range/Units 19:21 05:25 Sodium 130 L 128 L (137-145) mmol/L Potassium 4.9 4.8 (3.5-5.1) mmol/L Chloride 94 L 97 L (98-107) mmol/L Carbon Dioxide 21 L 24 (22-30) mmol/L BUN 26 H 27 H (9-20) mg/dL Creatinine 1.32 H 1.12 (0.66-1.25) mg/dL Glucose 238 H 138 H (74-99) mg/dL Calcium 9.3 7.6 L (8.4-10.2) mg/dL Total Bilirubin 1.2 0.5 (0.2-1.3) mg/dL AST 711 H 321 H (17-59) U/L ALT 3928 H 2454 H (4-49) U/L Alkaline Phosphatase 93 68 (38-126) U/L Total Protein 6.6 4.9 L (6.3-8.2) g/dL Albumin 4.0 2.8 L (3.5-5.0) g/dL
[2020-04-06 11:48] LABS: Glucose,Whole Blood 135 mg/dL (75-99)
--- NOTE | 2020-04-06 12:15 | P.CN ---
Psychiatric Consult - . Consult date: 04/06/20 Consult:: IDENTIFYING DATA: This patient is a , on disability, 64-year-old male who was admitted for suicidal ideation with an attempt by self- induced bilateral wrist lacerations HISTORY OF PRESENT ILLNESS: The patient presented to the hospital on 04/05/2020, brought in by EMS after he was found in the shower with his wrists cut open. As per EMS, was difficult to assess how much blood the patient has lost. The patient was subsequently admitted to the medical floor. He is currently being evaluated for elevated liver enzymes. The patient reports "I have been depressed for a long time." He expresses that he has been depressed for months and his depression becomes worse at night when he is alone by himself. The patient endorses significant symptoms of depression including low mood, feeling overwhelmed, hopelessness, helplessness, and suicidal ideation. Furthermore, the patient reports decreased appetite and difficulty sleeping. He states his energy has been low. He reports anhedonia. The patient states that he may be impulsive decision to cut his wrists in the shower using a box truck washer. He then contacted his sister who notified EMS was is currently brought him to the emergency department. The patient also reports that he previously overdosed on Seroquel a few years ago in an attempt to take his own life. The patient states that he began expressing depression 2-3 years ago. He does not endorse any significant symptoms of bipolar disorder. He reports no periods of excessive energy, increased goal-directed behavior, or grandiosity. In regards to psychotic symptoms, the patient denies any significant history of auditory or visual hallucinations. He denies any paranoia or delusions. The patient is unable to identify any specific stressors but states that he has been feeling increasingly isolated area since the of his , losing his leg, and the pandemic. PAST PSYCHIATRIC HISTORY: The patient reports that he has not been previously diagnosed with depression. He denies any history of psychiatric diagnoses. He denies being on any psychotropic medications in the past. He denies any previous psychiatric hospitalizations. He denies any outpatient psychiatric follow-up. The patient does report a prior suicide attempt by overdose along with this attempt by slicing his wrists. PAST MEDICAL HISTORY: Past Medical History: No Reported History Additional Past Medical History / Comment(s): borderline hypertension and diabetes History of Any Multi-Drug Resistant Organisms: MRSA Past Surgical History: Back Surgery, Orthopedic Surgery Additional Past Surgical History / Comment(s): Bone grafts in feet, below the knee right amputation, larynx surgery ALLERGIES: Codeine CHEMICAL DEPENDENCY HISTORY: The patient reports that he quit drinking 15 years ago. Since before quitting alcohol, he used to binge on weekends. He denies any history of rehabilitation or detox. The patient denies any tobacco or illicit drug use. He does report significant marijuana use. He states he smokes "a couple joints per day." FAMILY PSYCHIATRIC/SUBSTANCE USE HISTORY: The patient denies any family history of psychiatric or substance use disorders. SOCIAL HISTORY: Patient was born and raised in [place], [place]. He moved to [place] at the age of 9. He reports that growing up his family has been very supportive and his parents stayed together. He is the third eldest of 7 children. He was producing employed as a nurse's aide. She reports that he stopped working 20 years ago after the amputation of his leg. The patient was previously but is now as of 2004. He states that he was for 25 years. He has 6 adopted children. He does report that his family is very supportive. MENTAL STATUS EXAM: General Appearance: Patient appears to be stated age is alert, pleasant, and cooperative. Patient appears to have fair hygiene and grooming wearing hospital gown with fair eye contact. The patient is currently missing his right lower extremity due to amputation. He has bandages over his bilateral wrists. Bald and with obese body habitus. Behavior: Patient is calmly lying in bed without any agitated behavior. Eye contact is appropriate. Psychomotor activity appears slow. Speech: Patient's speech is fluent and nonpressured. Mood/Affect: Patient reports their mood is "depressed", affect is congruent, withdrawn. Suicidality/Homicidality: Patient denies having any current suicidal or homicidal ideation, intent, or plan. Perceptions: Patient denies any visual hallucinations and denies any auditory hallucinations Though content/process: There is no evidence of any delusional thought content and thought process is linear and goal-directed. Memory and concentration: AOX3, grossly intact for the purposes of this session. Can spell "WORLD" backwards Judgment and insight: Fair IMPRESSIONS: Major depressive disorder, recurrent, severe Cannabis use disorder PLAN: -At this time patient DOES meet criteria for inpatient psychiatric admission. The patient is at very high risk for harm to self with risk factors including prior attempts at suicide, age, race, unemployment, substance use, and isolation. -Would recommend the following medication changes/additions: We will wait until the patient's elevated liver enzymes are evaluated and trending downward before introduction of an SSRI medication such as Prozac. Patient is agreeable to starting this medication after the risks, benefits, and alternatives were discussed. -Continue 1:1 sitter for safety -Cannot leave AMA at this time. Patient will need a petition and certification if attempting to leave AMA. -When medically stable, patient is eligible for transfer to a psych bed when available. [-Psyciatry will sign off at this point, please contact with any questions.] 04/06/20 12:14
[2020-04-06 12:17] LABS: Hepatitis A Antibody IgM Non-Reactive (Non-Reactive); Hepatitis B Core IgM Non-Reactive (Non-Reactive); Hepatitis B Surface Antigen Non-Reactive (Non-Reactive); Hepatitis C IgG Antibody Non-Reactive (Non-Reactive)
[2020-04-06] MEDS: INSULIN ASPART (NovoLOG) 100 UNIT/ML VIAL SQ SCH ×2 (12:52→17:26)
[2020-04-06 17:13] LABS: Glucose,Whole Blood 119 mg/dL (75-99)
--- NOTE | 2020-04-06 17:59 | P.PN ---
Subjective Progress Note Date: 04/06/20 (delayed charting seen at 1215) Principal diagnosis: depression Patient is a 64-year-old male with history of right BKA, diabetes, hypertension, and depression who presented to the emergency department via EMS after attempting to slit both of his wrists. In the ED he underwent repair of lacerations to both his wrist with multiple sutures. Vital signs on arrival showed tachycardia heart rate 140. Initial labs showed white blood cell count 20.2, hemoglobin 12.1, sodium 1:30, chloride 21, BUN 26, creatinine 1.32, glucose 238, AST 711, ALT 3928. Urine drug screen was positive for opiates and marijuana. Copious 19 testing was negative. He was initially admitted to trauma services and they have transferred to admission to medicine. Liver ultrasound revealed normal hepatic textures but dilated common bile duct. Patient seen and examined at bedside with sister present. He complains of wrist pain and back pain. He denies any nausea, vomiting, diarrhea, chest pain, s hortness of breath. When asked about etiologies for his liver failure he states that when he was ad mitted previously they told him that he had liver disease and chronic kidney disease stage III. He states that he used to be somewhat heavy drinker but was never an alcoholic and has not drink in 15 years. He has no known hepatitis exposures. He does not use illicit drug needles. He does report that he uses 4 500 mg Tylenol tablets 4-6 times a day after being told he needed to come off of his narcotic medications. He has been doing this for quite some time. He denies any herbal supplements but does smoke marijuana. No family history of liver disease. Denies any unusual ingestions. General: Ill-appearing, no distress, appears at stated age Derm: warm, dry Head: atraumatic, normocephalic, symmetric Eyes: EOMI, no lid lag, anicteric sclera Mouth: no lip lesion, mucus membranes moist Cardiovascular: S1S2 reg, no murmur, positive posterior tibial pulse left, Lungs: CTA bilateral, no rhonchi, no rales , no accessory muscle use Abdominal: soft, tender to palpation right upper quadrant, no guarding, no appreciable organomegaly Ext: no gross muscle atrophy, no edema, no contractures, bilateral wrists with dressings in place, Right BKA Neuro: CN II-XI grossly intact, no focal neuro deficits Psych: Alert, oriented, flattened affect Suicide attempt with bilateral wrist lacerations -Sutures placed 04/05/20 -Management per trauma services -Pain control -Psychiatry recommendations appreciated: Plan for MHU once medically stable Transaminitis, undetermined etiology -Patient with chronic overexposure to Tylenol however Tylenol levels are negative -Hepatitis A, B, and C are negative -Consult GI -Downtrending and possibly related to shock liver from blood loss if patient was hypotensive -Repeat labs in a.m. -Avoid liver toxic medications Acute blood loss anemia secondary to above -Follow CBC Diabetes mellitus type 2 -Diet controlled at home -Sliding-scale insulin -Hemoglobin A1c 6.2 Hyponatremia - undetermined cause - may be related to liver disease vs bumex - follow sodium, hold bumex, OVF - BP at 1800 Chronic pain - outpatient pain mgt follow-up Leukocytosis, reactive - follow CBC ANNELISE, resolved DVT prophylaxis: SCDs Discussed with: patient, nursing Anticipated discharge: 2-[address]: MHU A total of 65 minutes was spent on the care of this complex patient more than 50% of the time was spent in counseling and care coordination. Objective - Vital Signs Vital signs: Vital Signs Temp 98.3 F 04/06/20 14:06 Pulse 85 04/06/20 14:06 Resp 17 04/06/20 14:06 BP 118/72 04/06/20 14:06 Pulse Ox 96 04/06/20 15:53 Intake & Output 04/05/20 04/06/20 04/06/20 18:59 06:59 18:59 Intake Total 360 Balance 360 Weight 117.934 kg 117.934 kg Intake: Oral 360 Other: Voiding Method Toilet # Voids 1 - Labs CBC & Chem 7: 04/06/20 05:25 04/06/20 05:25 Labs: Abnormal Lab Results - Last 24 Hours (Table) 04/05/20 04/05/20 04/05/20 Range/Units 19:21 19:21 20:31 WBC 24.0 H (3.8-10.6) k/uL RBC (4.30-5.90) m/uL Hgb (13.0-17.5) gm/dL Hct (39.0-53.0) % RDW (11.5-14.5) % Immature Gran # (0.00-0.04) X 10*3/uL Neutrophils # 22.2 H (1.3-7.7) k/uL Lymphocytes # 0.7 L (1.0-4.8) k/uL Sodium 130 L (137-145) mmol/L Chloride 94 L (98-107) mmol/L Carbon Dioxide 21 L (22-30) mmol/L BUN 26 H (9-20) mg/dL Creatinine 1.32 H (0.66-1.25) mg/dL Glucose 238 H (74-99) mg/dL POC Glucose (mg/dL) (75-99) mg/dL Hemoglobin A1c (4.0-6.0) % Calcium (8.4-10.2) mg/dL AST 711 H (17-59) U/L ALT 3928 H (4-49) U/L Total Protein (6.3-8.2) g/dL Albumin (3.5-5.0) g/dL Urine Opiates Screen Detected H (NotDetected) U Marijuana (THC) Screen Detected H (NotDetected) 04/05/20 04/06/20 04/06/20 Range/Units 22:42 05:25 05:25 WBC 20.2 H 13.86 H (3.8-10.6) k/uL RBC 3.90 L 3.20 L (4.30-5.90) m/uL Hgb 12.1 L 9.9 L (13.0-17.5) gm/dL Hct 37.1 L 30.6 L (39.0-53.0) % RDW 14.6 H (11.5-14.5) % Immature Gran # 0.09 H (0.00-0.04) X 10*3/uL Neutrophils # 18.4 H 11.35 H (1.3-7.7) k/uL Lymphocytes # 0.5 L (1.0-4.8) k/uL Sodium (137-145) mmol/L Chloride (98-107) mmol/L Carbon Dioxide (22-30) mmol/L BUN (9-20) mg/dL Creatinine (0.66-1.25) mg/dL Glucose (74-99) mg/dL POC Glucose (mg/dL) (75-99) mg/dL Hemoglobin A1c 6.2 H (4.0-6.0) % Calcium (8.4-10.2) mg/dL AST (17-59) U/L ALT (4-49) U/L Total Protein (6.3-8.2) g/dL Albumin (3.5-5.0) g/dL Urine Opiates Screen (NotDetected) U Marijuana (THC) Screen (NotDetected) 04/06/20 04/06/20 04/06/20 Range/Units 05:25 07:12 11:36 WBC (3.8-10.6) k/uL RBC (4.30-5.90) m/uL Hgb (13.0-17.5) gm/dL Hct (39.0-53.0) % RDW (11.5-14.5) % Immature Gran # (0.00-0.04) X 10*3/uL Neutrophils # (1.3-7.7) k/uL Lymphocytes # (1.0-4.8) k/uL Sodium 128 L (137-145) mmol/L Chloride 97 L (98-107) mmol/L Carbon Dioxide (22-30) mmol/L BUN 27 H (9-20) mg/dL Creatinine (0.66-1.25) mg/dL Glucose 138 H (74-99) mg/dL POC Glucose (mg/dL) 136 H 135 H (75-99) mg/dL Hemoglobin A1c (4.0-6.0) % Calcium 7.6 L (8.4-10.2) mg/dL AST 321 H (17-59) U/L ALT 2454 H (4-49) U/L Total Protein 4.9 L (6.3-8.2) g/dL Albumin 2.8 L (3.5-5.0) g/dL Urine Opiates Screen (NotDetected) U Marijuana (THC) Screen (NotDetected) 04/06/20 Range/Units 17:10 WBC (3.8-10.6) k/uL RBC (4.30-5.90) m/uL Hgb (13.0-17.5) gm/dL Hct (39.0-53.0) % RDW (11.5-14.5) % Immature Gran # (0.00-0.04) X 10*3/uL Neutrophils # (1.3-7.7) k/uL Lymphocytes # (1.0-4.8) k/uL Sodium (137-145) mmol/L Chloride (98-107) mmol/L Carbon Dioxide (22-30) mmol/L BUN (9-20) mg/dL Creatinine (0.66-1.25) mg/dL Glucose (74-99) mg/dL POC Glucose (mg/dL) 119 H (75-99) mg/dL Hemoglobin A1c (4.0-6.0) % Calcium (8.4-10.2) mg/dL AST (17-59) U/L ALT (4-49) U/L Total Protein (6.3-8.2) g/dL Albumin (3.5-5.0) g/dL Urine Opiates Screen (NotDetected) U Marijuana (THC) Screen (NotDetected)
[2020-04-06 19:02] LABS: AST 205 U/L (17-59); African American GFR (CKD) >90 (>60 ml/min/1.73 sqM); Albumin 2.9 g/dL (3.5-5.0); Albumin/Globulin Ratio 1.3; Alkaline Phosphatase 64 U/L (38-126); Anion Gap 7 mmol/L; Blood Urea Nitrogen 23 mg/dL (9-20); Calcium 8.1 mg/dL (8.4-10.2); Carbon Dioxide 27 mmol/L (22-30); Chloride 99 mmol/L (98-107); Globulin 2.2 g/dL; Glucose 161 mg/dL (74-99); Non-African American GFR(CKD) 83 (>60 ml/min/1.73 sqM); Potassium 4.6 mmol/L (3.5-5.1); Sodium 133 mmol/L (137-145); Total Bilirubin 0.4 mg/dL (0.2-1.3); Total Protein 5.1 g/dL (6.3-8.2)
[2020-04-06 19:10] LABS: ALT 1835 U/L (4-49)
[2020-04-06 19:19] LABS: HCT 30.5 % (39.0-53.0); MCHC 32.3 g/dL (31.0-37.0); MCV 96.1 fL (80.0-100.0); Mean Platelet Volume 8.3; Platelet Count 243 k/uL (150-450); RBC 3.17 m/uL (4.30-5.90); RDW 14.6 % (11.5-15.5); WBC 8.9 k/uL (3.8-10.6)
[2020-04-06 19:21] LABS: HGB 9.8 gm/dL (13.0-17.5)
[2020-04-06 20:26] LABS: Glucose,Whole Blood 113 mg/dL (75-99)
--- NOTE | 2020-04-06 22:01 | CONS ---
CONSULTATION DATE OF DICTATION: 04/06/2020 REASON FOR CONSULTATION: Acute elevation of serum transaminases. HISTORY OF PRESENT ILLNESS: The patient is a 64-year-old pleasant white male with history of hypertension and depression who was admitted to the hospital after he had a suicide attempt by cutting both of his wrists. Apparently he was in a bad social and financial situation. After arrival in the emergency room he was noted to have elevated LFTs with AST of 711, ALT of 3928, and bilirubin of 1.2 with normal alkaline phosphatase, and hence we are consulted because of this issue. The patient denies any prior history of chronic liver disease. About 2 years ago he was told he had elevated LFTs. No history of alcohol use. No history of jaundice or hepatitis in the past. No history of high-risk behavior. He denies any new medications that were started recently. No antibiotic use. No recent travel history. PAST MEDICAL HISTORY: Diabetes mellitus, hypertension, asthma. PAST SURGICAL HISTORY: Back surgery, tonsillectomy, bone graft in the right leg, right below-knee amputation, left knee arthroscopies. MEDICATIONS AT HOME: Bumetanide and Zestril. ALLERGIES: CODEINE. SOCIAL HISTORY: Former smoker. No alcohol use. REVIEW OF SYSTEMS: CARDIOPULMONARY: No chest pain or shortness of breath. GENITOURINARY: No dysuria or hematuria. MUSCULOSKELETAL: Unremarkable. SKIN: Unremarkable. ENDOCRINE: Unremarkable. PSYCHIATRIC: Anxiety, depression. NEUROLOGY: Unremarkable. ENT/VISION: Unremarkable. CONSTITUTIONAL: No recent weight loss. No fever, chills, night sweats. PHYSICAL EXAMINATION: Blood pressure 118/72, pulse rate 85, temperature 98.3. HEENT examination unremarkable. Conjunctivae pink. Sclerae anicteric. Oral cavity no lesions. NECK: No JVD or lymph node enlargement. CHEST: Clear to auscultation. HEART: Regular rate and rhythm. ABDOMEN: Soft. There was very minimal tenderness in the epigastric and right upper quadrant areas. Rest of the abdomen was benign. EXTREMITIES: Left BKA. No edema. NEUROLOGIC: Alert and oriented x3. No focal deficits. LABS: WBC 20.2, hemoglobin 12, platelets normal. Basic metabolic panel is within normal limits. BUN 27, creatinine 1.12. AST 711, ALT 3928, T-bilirubin 1.2, alkaline phosphatase 93. Today AST is down to 321, ALT is down to 2454. T-bilirubin and alkaline phosphatase are within normal limits. Hepatitis serologies for A, B and C are negative. Coronavirus PCR is negative. He did have ultrasound of the abdomen done that showed cholecystectomy. Common bile duct was slightly enlarged, measuring 11 mm, but no intrahepatic biliary ductal dilation. Liver appeared normal. IMPRESSION: Acute elevation of serum transaminases consistent with acute hepatitis-like picture in this patient with no prior history of chronic liver disease. Serum transaminases in 2019 were within normal limits. He denies taking any new medications recently and has no prior history of alcohol use. At this time the etiology of acute hepatitis remains unclear. The patient denies taking any acetaminophen in the last few days. Also, acetaminophen level in the ER was less than 10. Ultrasound did not show any significant pathology. RECOMMENDATIONS: 1. Will obtain EBV and CMV serologies. 2. Obtain hepatitis C viral RNA to rule out acute hep C infection. 3. Continue to monitor LFTs closely. 4. Will follow with you closely. Thank you for this consultation. There is no GI service available over the weekend. Will resume care on Thursday morning. 5. Thank you for this consultation. MMODL / IJN: [id number] /
[2020-04-06] MEDS: MELATONIN 5 MG TABLET PO PRN (22:32)
[2020-04-06 23:21] LABS: Basophils # (A) 0.03 X 10*3/uL (0.00-0.10); Basophils % (A) 0.3 %; Eosinophils # (A) 0.17 X 10*3/uL (0.04-0.35); Eosinophils % (A) 1.7 %; HCT 29.2 % (39.6-50.0); HGB 9.6 g/dL (13.0-17.0); Lymphocytes # (A) 1.66 X 10*3/uL (0.90-5.00); Lymphocytes % (A) 16.1 %; MCHC 32.9 g/dL (32.0-37.0); MCV 94.2 fL (80.0-97.0); Mean Platelet Volume 11.5 fL (9.5-12.2); Monocytes # (A) 0.84 X 10*3/uL (0.20-1.00); Monocytes % (A) 8.2 %; Neutrophils # (A) 7.54 X 10*3/uL (1.80-7.70); Neutrophils % (A) 73.3 %; Platelet Count 249 X 10*3/uL (140-440); RDW 14.8 % (11.5-14.5); WBC 10.28 X 10*3/uL (4.50-10.00)
[2020-04-07] MEDS: SODIUM CHLORIDE 0.9% 1,000 ML IV SCH ×4 (01:24→22:56)
[2020-04-07 07:02] LABS: Glucose,Whole Blood 106 mg/dL (75-99)
[2020-04-07] MEDS: HYDROcodone/APAP 5-325MG 1 EACH TAB PO PRN ×3 (07:03→22:52)
[2020-04-07] MEDS: INSULIN ASPART (NovoLOG) 100 UNIT/ML VIAL SQ SCH ×3 (07:16→16:28)
[2020-04-07] MEDS: PIPERACILLIN-TAZOBACTAM 3.375 GM in SODIUM CHLORIDE 0.9% 100 ML IVPB SCH ×2 (07:57→17:06)
[2020-04-07 08:53] LABS: HCT 27.5 % (39.6-50.0); HGB 8.8 g/dL (13.0-17.0); MCH 30.3 pg (27.0-32.0); MCV 94.8 fL (80.0-97.0); Mean Platelet Volume 11.3 fL (9.5-12.2); Platelet Count 217 X 10*3/uL (140-440); RDW 14.9 % (11.5-14.5); WBC 7.49 X 10*3/uL (4.50-10.00)
[2020-04-07 09:46] LABS: African American GFR (CKD) 93.1 (60.0-200.0); Albumin 3.1 g/dL (3.80-4.90); Albumin/Globulin Ratio 1.48 (1.60-3.17); Anion Gap 2.8 mmol/L (4.00-12.00); Calcium 8.2 mg/dL (8.7-10.3); Carbon Dioxide 30.2 mmol/L (21.6-31.8); Globulin 2.1 g/dL (1.6-3.3); Non-African American GFR(CKD) 80.3 (60.0-200.0); Potassium 4.2 mmol/L (3.5-5.5); Total Bilirubin 0.5 mg/dL (0.3-1.2); Total Protein 5.2 g/dL (6.2-8.2)
[2020-04-07] MEDS ORDERED: Magnesium Replacement Protocol 1 EACH MISC MISCELLANE PRN (09:54)
[2020-04-07] MEDS ORDERED: MAGNESIUM SULFATE-D5W PMX 1 GM in DEXTROSE/WATER 1 100ML.BAG IVPB SCH (10:00)
--- NOTE | 2020-04-07 10:21 | P.CNOR ---
History of Present Illness - [facility] Consult date: 04/05/20 Consult reason: other (Bilateral wrist laceration) History of present illness: This is a 64-year-old male who is admitted to [facility] on 04/05/2020 after being found in his bathtub having cut both of his wrists in a suicide attempt. The patient suffers from severe depression. He was admitted for psychiatric evaluation. Orthopedics was consulted for evaluation of both wrists. He is complaining of numbness to the right middle and part of the index finger. He states that he can still use the fingers and reports no muscle weakness. Past Medical History Past Medical History: Asthma, Diabetes Mellitus, Hypertension, Respiratory Disorder Additional Past Medical History / Comment(s): borderline hypertension, borderline diabetes; empysema, asthma, chronic low back pain and knee pain History of Any Multi-Drug Resistant Organisms: MRSA Year Discovered:: 1997 MDRO Source:: right leg Past Surgical History: Back Surgery, Orthopedic Surgery, Tonsillectomy Additional Past Surgical History / Comment(s): Bone grafts to right leg, right below the knee amputation, larynx surgery, left knee athroscopies, multiple falls Past Anesthesia/Blood Transfusion Reactions: No Reported Reaction Past Psychological History: Anxiety, Depression Additional Psychological History / Comment(s): states has previously tried overdosing but never on a mental health unit; reports depression and anxiety; in 2004, lives alone in [facility] [place] [address], has right BKA-uses prosthesis; 04/05/2020 suicide attempt-lacerations to bilateral wrists requiring sutures. Smoking Status: Former smoker Past Alcohol Use History: Rare Additional Past Alcohol Use History / Comment(s): states rum rarely Past Drug Use History: Marijuana, Opiates Additional Drug Use History / Comment(s): states has taken norco 5s and marijua na recently Medications and Allergies Home Medications Medication Instructions Recorded Confirmed Type Bumetanide 2 mg PO BID 04/05/20 04/05/20 History Lisinopril [Zestril] 10 mg PO DAILY 04/05/20 04/05/20 History Allergies Allergy/AdvReac Type Severity Reaction Status Date / Time codeine Allergy Rash/Hives Verified 04/05/20 21:57 Physical Examination This is a pleasant 64-year-old male in no acute distress. He is alert and oriented at this time. Exam of the right upper extremity reveals a horizontal laceration across the volar aspect of the wrist. The laceration has been closed with nylon sutures. He has full motion of the fingers including flexion of each finger against resistance with good strength. There is numbness to the entire middle finger both palmar and dorsal aspect. He has full motor function of the finger. There is numbness to the ulnar aspect of the index finger. There is some numbness to the thenar eminence. Normal sensation to the thumb. Capillary refill is less than 2 seconds to all 5 fingers of the right hand. Exam of the left upper extremity reveals a horizontal laceration across the volar aspect of the wrist. The laceration has been closed with nylon sutures. He has full motion of the fingers including flexion of each finger against resistance with good strength. He has normal sensation to all of the fingers. Capillary refill is less than 2 seconds to all 5 fingers of the left hand. The remainder of his musculoskeletal exam is unremarkable. Results Angiogram of the right upper extremity is unremarkable. - Labs Labs: Abnormal Lab Results - Last 24 Hours (Table) 04/06/20 04/06/20 04/06/20 Range/Units 05:25 11:36 14:20 WBC 10.28 H (4.50-10.00) X 10*3/uL RBC 3.10 L (4.40-5.60) X 10*6/uL Hgb 9.6 L (13.0-17.0) g/dL Hct 29.2 L (39.6-50.0) % RDW 14.8 H (11.5-14.5) % Sodium (137-145) mmol/L Anion Gap (4.00-12.00) mmol/L BUN (9-20) mg/dL Glucose (74-99) mg/dL POC Glucose (mg/dL) 135 H (75-99) mg/dL Hemoglobin A1c 6.2 H (4.0-6.0) % Calcium (8.4-10.2) mg/dL AST (17-59) U/L ALT (4-49) U/L Total Protein (6.3-8.2) g/dL Albumin (3.5-5.0) g/dL Albumin/Globulin Ratio (1.60-3.17) g/dL 04/06/20 04/06/2004/06/21 Range/Units 17:10 18:09 18:09 WBC (4.50-10.00) X 10*3/uL RBC 3.17 L (4.40-5.60) X 10*6/uL Hgb 9.8 L D (13.0-17.0) g/dL Hct 30.5 L (39.6-50.0) % RDW (11.5-14.5) % Sodium 133 L (137-145) mmol/L Anion Gap (4.00-12.00) mmol/L BUN 23 H (9-20) mg/dL Glucose 161 H (74-99) mg/dL POC Glucose (mg/dL) 119 H (75-99) mg/dL Hemoglobin A1c (4.0-6.0) % Calcium 8.1 L (8.4-10.2) mg/dL AST 205 H (17-59) U/L ALT 1835 H (4-49) U/L Total Protein 5.1 L (6.3-8.2) g/dL Albumin 2.9 L (3.5-5.0) g/dL Albumin/Globulin Ratio (1.60-3.17) g/dL 04/06/20 04/07/20 04/07/20 Range/Units 20:25 06:14 06:14 WBC (4.50-10.00) X 10*3/uL RBC 2.90 L (4.40-5.60) X 10*6/uL Hgb 8.8 L (13.0-17.0) g/dL Hct 27.5 L (39.6-50.0) % RDW 14.9 H (11.5-14.5) % Sodium (137-145) mmol/L Anion Gap 2.80 L (4.00-12.00) mmol/L BUN (9-20) mg/dL Glucose (74-99) mg/dL POC Glucose (mg/dL) 113 H (75-99) mg/dL Hemoglobin A1c (4.0-6.0) % Calcium 8.2 L (8.4-10.2) mg/dL AST 111 H (17-59) U/L ALT 1358 H (4-49) U/L Total Protein 5.2 L (6.3-8.2) g/dL Albumin 3.10 L (3.5-5.0) g/dL Albumin/Globulin Ratio 1.48 L (1.60-3.17) g/dL 04/07/20 Range/Units 07:00 WBC (4.50-10.00) X 10*3/uL RBC (4.40-5.60) X 10*6/uL Hgb (13.0-17.0) g/dL Hct (39.6-50.0) % RDW (11.5-14.5) % Sodium (137-145) mmol/L Anion Gap (4.00-12.00) mmol/L BUN (9-20) mg/dL Glucose (74-99) mg/dL POC Glucose (mg/dL) 106 H (75-99) mg/dL Hemoglobin A1c (4.0-6.0) % Calcium (8.4-10.2) mg/dL AST (17-59) U/L ALT (4-49) U/L Total Protein (6.3-8.2) g/dL Albumin (3.5-5.0) g/dL Albumin/Globulin Ratio (1.60-3.17) g/dL H & H 04/05/20 04/05/20 04/06/20 Range/Units 19:21 22:42 05:25 Hgb 14.0 12.1 L 9.9 L (13.0-17.5) gm/dL Hct 43.1 37.1 L 30.6 L (39.0-53.0) % 04/06/20 04/06/20 04/07/20 Range/Units 14:20 18:09 06:14 Hgb 9.6 L 9.8 L D 8.8 L (13.0-17.5) gm/dL Hct 29.2 L 30.5 L 27.5 L (39.0-53.0) % Coagulation 04/05/20 Range/Units 19:21 INR 1.1 (<1.2) Result Diagrams: 04/07/20 06:14 04/07/20 06:14 Assessment and Plan (1) Laceration of right median nerve Current Visit: Yes Status: Acute Code(s): S54.11XA - INJURY OF MEDIAN NERVE AT FOREARM LEVEL, RIGHT ARM, INIT SNOMED Code(s): 303051143 (2) Depression Current Visit: Yes Status: Acute Code(s): F32.9 - MAJOR DEPRESSIVE DISORDER, SINGLE EPISODE, UNSPECIFIED SNOMED Code(s): 45733286 (3) Laceration of wrist, left Current Visit: Yes Status: Acute Code(s): S61.512A - LACERATION WITHOUT FOREIGN BODY OF LEFT WRIST, INIT ENCNTR SNOMED Code(s): 43005769856493050 (4) Laceration of wrist, right Current Visit: Yes Status: Acute Code(s): S61.511A - LACERATION WITHOUT FOREIGN BODY OF RIGHT WRIST, INIT ENCNTR SNOMED Code(s): 07367128428497217 (5) Suicide attempt Current Visit: Yes Status: Acute Code(s): T14.91XA - SUICIDE ATTEMPT, INITIAL ENCOUNTER SNOMED Code(s): 78150389 Plan: The clinical findings are discussed with the patient and nursing staff. Our hand surgeon does not practice at [facility]. He is strictly outpatient care in the office and surgery Center. If the median nerve is to be repaired is recommended that it be repaired within the first week or so of injury to have the best chance of optimal outcome. If it is our goal to repair the nerve he should be transferred to a tertiary care center so that they can care for him orthopedically and psychiatrically in the same center.
[2020-04-07 11:45] LABS: Glucose,Whole Blood 155 mg/dL (75-99)
--- NOTE | 2020-04-07 13:36 | P.PN ---
Progress Note - Text Progress Note Date: 04/07/20 Interval History: Patient was seen today for psychiatric follow-up regarding patient's depression and suicide attempt. Patient was seen today with a sitter at his side in his room and was agreeable to speak to policy writer. Patient continues to have a constricted affect and appears to be depressed. He states that he had been dealing with ongoing depression for several months now and spoke about family issues and also his kids leaving the house. He states that "mainly at nighttime and feel depressed". He states that he cut his wrists while in the bathtub at home in a suicide attempt however states that he feels significant guilt for doing this and being in the hospital. Patient spoke about his injury to his wrists and claims that his hand is doing better today and is in less pain and was able to move all his fingers on examination. He states that he has been sleeping better here in the hospital. He has an improvement in his appetite. Deli Department Manager spoke with patient about starting antidepressant medications and patient was agreeable to start Cymbalta today. Patient claims that he does not want to be transferred to an outside hospital and prefers to stay within this hospital locally and was refusing surgery as he states "my hands doing better and I don't need it". At this time patient denies any suicidal or homical ideations, intent or plan. Patient denies any auditory, visual hallucinations and denies any paranoia or delusions Mental Status Exam: General Appearance: Patient appears to be overweight, stated age is alert, directable, and attempts to be cooperative. Wearing hospital gown. Behavior: Patient is calmly seated without any agitated behavior. Speech: Patient's speech is fluent and nonpressured. Soft tone of voice Mood/Affect: Mood is depressed however improving mildly, affect is congruent and constricted. Suicidality/Homicidality: Patient denies having any suicidal or homicidal ideation intent or plan. Perceptions: Patient denies any visual hallucinations and denies any auditory hallucinations Though content/process: There is no evidence of any delusional thought content and thought process is linear and goal-directed. Minimizing his symptoms. Memory and concentration: AOX3, grossly intact for the purposes of this session Judgment and insight: Poor Assessment Major depressive disorder, severe, without psychotic features Cannabis use disorder Plan: -At this time patient DOES meet criteria for inpatient psychiatric admission. Patient is at high risk for suicide and requires inpatient psychiatric admission. -Would recommend the following medication changes/additions: Patient is agreeable to start Cymbalta 30 mg daily for mood/anxiety. Melatonin 5 mg daily prn at bedtime for insomnia -Continue 1:1 sitter for safety -Cannot leave AMA at this time. Patient will need a petition and certification if attempting to leave AMA. -Patient was seen by orthopedics PA who claims that patient will need specialized hand surgery by Dr. Pollard however he does not have privileges at this hospital and was recommending transfer to a tertiary facility until patient can get surgery completed and was recommending to have surgery done within one week. At this time patient is refusing transfer and also refusing surgery and wants to stay locally. Recommend that surgery reassess patient and speak with him about the risks of refusing surgery. -When medically stable, patient is eligible for transfer to a psych bed when available. -Deli Department Manager spoke with hospitalist caring for patient to update them on the plan and discuss care. It was discussed that if patient is refusing transfer then if patient could follow-up with surgeon in the office next week if this could be an option. Hospitalist will be contacting surgeon to discuss this plan and whether or not the surgery can be delayed as patient is requiring inpatient psychiatric hospitalization at this time as well. -Communicated plan to patient's nurse -Psychiatry will sign off at this time -Please contact with any questions.
[2020-04-07] MEDS: DULoxetine HCL 30 MG CAPSULE.DR PO SCH (13:43)
--- NOTE | 2020-04-07 15:07 | P.PN ---
Subjective Progress Note Date: 04/07/20 Principal diagnosis: suicide attempt Feeling well, he no longer has thoughts of hurting himself. No chest pain or shortness of breath. No fevers. States that he feels slightly numb in the right hand otherwise he is able to use his hand. Objective - Vital Signs Vital signs: Vital Signs Temp 98.3 F 04/07/20 14:00 Pulse 105 H 04/07/20 14:00 Resp 19 04/07/20 14:00 BP 108/67 04/07/20 14:00 Pulse Ox 95 04/07/20 14:00 Intake & Output 04/06/20 04/07/20 04/07/20 18:59 06:59 18:59 Intake Total 559 847 4775 Balance 374 129 7328 Intake: Oral 695 214 9482 Other: Voiding Method Toilet Urinal Urinal # Voids 1 3 - Labs CBC & Chem 7: 04/07/20 06:14 04/07/20 06:14 Labs: Abnormal Lab Results - Last 24 Hours (Table) 04/06/20 04/06/20 04/06/20 Range/Units 14:20 17:10 18:09 WBC 10.28 H (4.50-10.00) X 10*3/uL RBC 3.10 L 3.17 L (4.40-5.60) X 10*6/uL Hgb 9.6 L 9.8 L D (13.0-17.0) g/dL Hct 29.2 L 30.5 L (39.6-50.0) % RDW 14.8 H (11.5-14.5) % Sodium (137-145) mmol/L Anion Gap (4.00-12.00) mmol/L BUN (9-20) mg/dL Glucose (74-99) mg/dL POC Glucose (mg/dL) 119 H (75-99) mg/dL Calcium (8.4-10.2) mg/dL AST (17-59) U/L ALT (4-49) U/L Total Protein (6.3-8.2) g/dL Albumin (3.5-5.0) g/dL Albumin/Globulin Ratio (1.60-3.17) g/dL CMV IgG Ab (Non-Reactive) 04/06/20 04/06/20 04/07/20 Range/Units 18:09 20:25 06:14 WBC (4.50-10.00) X 10*3/uL RBC (4.40-5.60) X 10*6/uL Hgb (13.0-17.0) g/dL Hct (39.6-50.0) % RDW (11.5-14.5) % Sodium 133 L (137-145) mmol/L Anion Gap (4.00-12.00) mmol/L BUN 23 H (9-20) mg/dL Glucose 161 H (74-99) mg/dL POC Glucose (mg/dL) 113 H (75-99) mg/dL Calcium 8.1 L (8.4-10.2) mg/dL AST 205 H (17-59) U/L ALT 1835 H (4-49) U/L Total Protein 5.1 L (6.3-8.2) g/dL Albumin 2.9 L (3.5-5.0) g/dL Albumin/Globulin Ratio (1.60-3.17) g/dL CMV IgG Ab Reactive A (Non-Reactive) 04/07/20 04/07/20 04/07/20 Range/Units 06:14 06:14 07:00 WBC (4.50-10.00) X 10*3/uL RBC 2.90 L (4.40-5.60) X 10*6/uL Hgb 8.8 L (13.0-17.0) g/dL Hct 27.5 L (39.6-50.0) % RDW 14.9 H (11.5-14.5) % Sodium (137-145) mmol/L Anion Gap 2.80 L (4.00-12.00) mmol/L BUN (9-20) mg/dL Glucose (74-99) mg/dL POC Glucose (mg/dL) 106 H (75-99) mg/dL Calcium 8.2 L (8.4-10.2) mg/dL AST 111 H (17-59) U/L ALT 1358 H (4-49) U/L Total Protein 5.2 L (6.3-8.2) g/dL Albumin 3.10 L (3.5-5.0) g/dL Albumin/Globulin Ratio 1.48 L (1.60-3.17) g/dL CMV IgG Ab (Non-Reactive) 04/07/20 Range/Units 11:44 WBC (4.50-10.00) X 10*3/uL RBC (4.40-5.60) X 10*6/uL Hgb (13.0-17.0) g/dL Hct (39.6-50.0) % RDW (11.5-14.5) % Sodium (137-145) mmol/L Anion Gap (4.00-12.00) mmol/L BUN (9-20) mg/dL Glucose (74-99) mg/dL POC Glucose (mg/dL) 155 H (75-99) mg/dL Calcium (8.4-10.2) mg/dL AST (17-59) U/L ALT (4-49) U/L Total Protein (6.3-8.2) g/dL Albumin (3.5-5.0) g/dL Albumin/Globulin Ratio (1.60-3.17) g/dL CMV IgG Ab (Non-Reactive) Assessment and Plan Plan: Suicide attempt with bilateral wrist lacerations and possible median nerve injury -Sutures placed 04/05/20 -Ortho states that patient will need evaluation by hand surgery Dr. Laboy, who unfortunately does not have privileges in the hospital and has to see him in the office. I discussed the case with orthopedic PA who stated that patient can be seen in the office next and possibly have median nerve repair on Thursday. I discussed this with the psychiatrist who stated that patient will likely be out of the hospital by then. -Pain control -We'll discharge to [facility] once medically stable Transaminitis, undetermined etiology -Likely secondary to chronic overexposure to Tylenol versus shock liver due to hemorrhagic shock -Hepatitis A, B, and C are negative -Consult GI -Repeat labs in a.m. -Avoid liver toxic medications Acute blood loss anemia secondary to above -Follow CBC Diabetes mellitus type 2 -Diet controlled at home -Sliding-scale insulin -Hemoglobin A1c 6.2 Hyponatremia -Resolved Chronic pain - outpatient pain mgt follow-up Leukocytosis, reactive - Resolved ANNELISE, resolved DVT prophylaxis: SCDs Discussed with: patient, nursing Anticipated discharge: 1-[address]: [facility] A total of 65 minutes was spent on the care of this complex patient more than 50% of the time was spent in counseling and care coordination.
[2020-04-07 16:21] LABS: Glucose,Whole Blood 125 mg/dL (75-99)
--- NOTE | 2020-04-07 19:06 | P.PN ---
Subjective Progress Note Date: 04/07/20 CHIEF COMPLAINT: Bilateral wrist laceration HISTORY OF PRESENT ILLNESS: The patient is a 64-year-old male who presented after bilateral wrist laceration for attempted suicide. He is able to move his wrists. He has been seen by orthopedic service and needs assessment by hand surgeon not available at this institution. He reports right upper quadrant abdominal pain. His LFTs continue to be elevated. He is complaining of abdominal pain. Patient has sitter at bedside. ROS: No reports of nausea and vomiting. No fevers or chills. No new chest pain. No productive sputum PHYSICAL EXAM: VITAL SIGNS: Reviewed CONSTITUTIONAL: Well developed and in no acute distress. EYES: Conjuctivae without sclera icterus. Extraocular movements grossly intact. HEAD, EARS, NOSE, THROAT: Moist buccal mucosa. Head is atraumatic, normocephalic. Hears conversational speech. No nasal drainage. NECK: Supple. No thyroidomegaly. RESPIRATORY: Non-labored respirations and equal bilateral excursions. CARDIOVASCULAR: Palpable 2+ radial pulses. Regular rate. Regular rhythm. ABDOMEN: Soft. Nontender. MUSCULOSKELETAL: No gross deformity of the lower extremities noted. No clubbing. No cyanosis. Dressing intact along bilateral wrists. SKIN: Good skin turgor. Well perfused. NEUROLOGIC: Cranial nerves II through XII grossly intact. No focal or lateralizing signs. PSYCH: Appropriate affect. Alert and oriented to person, place and time. CLINICAL LABS: White blood cell count normal. Hemoglobin down 9.8 to 8.8. CMV reactive. Hepatitis panel negative. Coronavirus negative STUDIES: Ultrasound of the right upper quadrant independently reviewed with gallbladder poorly identified. Common bile duct identified. Fatty liver disease identified. This is my independent interpretation. REPORT: Ultrasound report of the right upper quadrant limited due to body habitus with common bile duct mildly elevated. Common bile duct with 11.7 mm measurement. Gallbladder poorly identified. ASSESSMENT: 1. Traumatic bilateral wrist laceration, attempted suicide 2. Bilateral nerve laceration of the wrist 3. Anemia 4. Elevated AST and ALT PLAN: 1. He has abdominal pain including elevated liver enzymes with nondiagnostic ultrasound of his gallbladder. Recommend CT of the abdomen and pelvis. 2. Recommendations from orthopedic group appreciated with outpatient referral to hand surgeon versus transfer identified. 3. Discharged to psych for history of suicidal attempt once medically stable. Objective - Vital Signs Vital signs: Vital Signs Temp 98.3 F 04/07/20 14:00 Pulse 105 H 04/07/20 14:00 Resp 19 04/07/20 14:00 BP 108/67 04/07/20 14:00 Pulse Ox 95 04/07/20 16:23 Intake & Output 04/07/20 04/07/20 04/08/20 06:59 18:59 06:59 Intake Total 100 1620 Balance 100 1620 Intake: Oral 100 1620 Other: Voiding Method Urinal Urinal # Voids 1 1 # Bowel Movements 1 - Labs CBC & Chem 7: 04/08/20 06:34 04/08/20 06:34 Labs: Abnormal Lab Results - Last 24 Hours (Table) 04/06/20 04/06/20 04/06/20 Range/Units 14:20 18:09 18:09 WBC 10.28 H (4.50-10.00) X 10*3/uL RBC 3.10 L 3.17 L (4.40-5.60) X 10*6/uL Hgb 9.6 L 9.8 L D (13.0-17.0) g/dL Hct 29.2 L 30.5 L (39.6-50.0) % RDW 14.8 H (11.5-14.5) % Sodium 133 L (137-145) mmol/L Anion Gap (4.00-12.00) mmol/L BUN 23 H (9-20) mg/dL Glucose 161 H (74-99) mg/dL POC Glucose (mg/dL) (75-99) mg/dL Calcium 8.1 L (8.4-10.2) mg/dL AST 205 H (17-59) U/L ALT 1835 H (4-49) U/L Total Protein 5.1 L (6.3-8.2) g/dL Albumin 2.9 L (3.5-5.0) g/dL Albumin/Globulin Ratio (1.60-3.17) g/dL CMV IgG Ab (Non-Reactive) 04/06/20 04/07/20 04/07/20 Range/Units 20:25 06:14 06:14 WBC (4.50-10.00) X 10*3/uL RBC 2.90 L (4.40-5.60) X 10*6/uL Hgb 8.8 L (13.0-17.0) g/dL Hct 27.5 L (39.6-50.0) % RDW 14.9 H (11.5-14.5) % Sodium (137-145) mmol/L Anion Gap (4.00-12.00) mmol/L BUN (9-20) mg/dL Glucose (74-99) mg/dL POC Glucose (mg/dL) 113 H (75-99) mg/dL Calcium (8.4-10.2) mg/dL AST (17-59) U/L ALT (4-49) U/L Total Protein (6.3-8.2) g/dL Albumin (3.5-5.0) g/dL Albumin/Globulin Ratio (1.60-3.17) g/dL CMV IgG Ab Reactive A (Non-Reactive) 04/07/20 04/07/20 04/07/20 Range/Units 06:14 07:00 11:44 WBC (4.50-10.00) X 10*3/uL RBC (4.40-5.60) X 10*6/uL Hgb (13.0-17.0) g/dL Hct (39.6-50.0) % RDW (11.5-14.5) % Sodium (137-145) mmol/L Anion Gap 2.80 L (4.00-12.00) mmol/L BUN (9-20) mg/dL Glucose (74-99) mg/dL POC Glucose (mg/dL) 106 H 155 H (75-99) mg/dL Calcium 8.2 L (8.4-10.2) mg/dL AST 111 H (17-59) U/L ALT 1358 H (4-49) U/L Total Protein 5.2 L (6.3-8.2) g/dL Albumin 3.10 L (3.5-5.0) g/dL Albumin/Globulin Ratio 1.48 L (1.60-3.17) g/dL CMV IgG Ab (Non-Reactive) 04/07/20 Range/Units 16:20 WBC (4.50-10.00) X 10*3/uL RBC (4.40-5.60) X 10*6/uL Hgb (13.0-17.0) g/dL Hct (39.6-50.0) % RDW (11.5-14.5) % Sodium (137-145) mmol/L Anion Gap (4.00-12.00) mmol/L BUN (9-20) mg/dL Glucose (74-99) mg/dL POC Glucose (mg/dL) 125 H (75-99) mg/dL Calcium (8.4-10.2) mg/dL AST (17-59) U/L ALT (4-49) U/L Total Protein (6.3-8.2) g/dL Albumin (3.5-5.0) g/dL Albumin/Globulin Ratio (1.60-3.17) g/dL CMV IgG Ab (Non-Reactive) Assessment and Plan (1) Elevated liver enzymes Status: Acute Code(s): R74.8 - ABNORMAL LEVELS OF OTHER SERUM ENZYMES SNOMED Code(s): 853927562 (2) Laceration of wrist, left Status: Acute Code(s): S61.512A - LACERATION WITHOUT FOREIGN BODY OF LEFT WRIST, INIT ENCNTR SNOMED Code(s): 76377097499672968 (3) Laceration of wrist, right Status: Acute Code(s): S61.511A - LACERATION WITHOUT FOREIGN BODY OF RIGHT WRIST, INIT ENCNTR SNOMED Code(s): 53263580067118068 (4) Suicide attempt Status: Acute Code(s): T14.91XA - SUICIDE ATTEMPT, INITIAL ENCOUNTER SNOMED Code(s): 88761807
[2020-04-07] MEDS: IOPAMIDOL CONTRAST (ORAL USE) VIAL PO PRN ×2 (20:00→21:18)
[2020-04-07 20:40] LABS: Glucose,Whole Blood 126 mg/dL (75-99)
--- NOTE | 2020-04-07 22:08 | CT ---
EXAMINATION TYPE: CT abdomen pelvis w con DATE OF EXAM: 04/07/2020 COMPARISON: None HISTORY: Abdominal pain CT DLP: 2005.9 mGycm Automated exposure control for dose reduction was used. CONTRAST: Performed with IV Contrast, patient injected with 100 mL of Isovue 300. Images obtained from the diaphragm to the floor the pelvis with oral and intravenous contrast. There is mild subsegmental atelectasis right lung base. Heart size is normal. There is no pericardial effusion. Liver and spleen appear intact. The bile ducts are not dilated. Stomach is intact. There is no adrenal mass. Kidneys show satisfactory contrast opacification. There is no hydronephrosi s. Delayed images show normal renal excretion. There is no retroperitoneal adenopathy. Appendix is po sterior and appears normal. The bladder distends smoothly. There is no evidence of pelvic mass. There is no inguinal hernia. There is normal oral contrast opacification of the small bowel. There is no sign of a bowel obstructi on. There is no mesenteric edema. There is no ascites or free air. There is a first-degree L5-S1 spondylolisthesis. There is bilateral L5 spondylolysis. There is no lum bar compression fracture. Bony pelvis is intact. The hip joints are intact. IMPRESSION: Minimal scarring or subsegmental atelectasis right lung base. Normal heart. No acute abnormality of the abdomen pelvis.
[2020-04-07] MEDS: MELATONIN 5 MG TABLET PO PRN (22:53)
[2020-04-08] MEDS: PIPERACILLIN-TAZOBACTAM 3.375 GM in SODIUM CHLORIDE 0.9% 100 ML IVPB SCH ×3 (00:23→16:26)
[2020-04-08] MEDS: SODIUM CHLORIDE 0.9% 1,000 ML IV SCH ×2 (06:03→14:26)
[2020-04-08 06:41] LABS: Glucose,Whole Blood 108 mg/dL (75-99)
[2020-04-08] MEDS: INSULIN ASPART (NovoLOG) 100 UNIT/ML VIAL SQ SCH ×3 (08:17→16:49)
[2020-04-08] MEDS: DULoxetine HCL 30 MG CAPSULE.DR PO SCH (08:24)
[2020-04-08] MEDS: HYDROcodone/APAP 5-325MG 1 EACH TAB PO PRN ×2 (08:24→16:56)
[2020-04-08 08:27] VITALS: RESP 18; TEMP 98.5
[2020-04-08 09:46] LABS: African American GFR (CKD) 93.1 (60.0-200.0); Anion Gap 3.5 mmol/L (4.00-12.00); Calcium 8.1 mg/dL (8.7-10.3); Carbon Dioxide 33.5 mmol/L (21.6-31.8); Magnesium 1.8 mg/dL (1.5-2.4); Non-African American GFR(CKD) 80.3 (60.0-200.0); Phosphorus 3.8 mg/dL (2.4-5.1); Potassium 5.2 mmol/L (3.5-5.5)
[2020-04-08 09:51] LABS: Basophils # (A) 0.03 X 10*3/uL (0.00-0.10); Basophils % (A) 0.3 %; Eosinophils # (A) 0.21 X 10*3/uL (0.04-0.35); HCT 29.2 % (39.6-50.0); HGB 9.2 g/dL (13.0-17.0); Lymphocytes # (A) 1.97 X 10*3/uL (0.90-5.00); Lymphocytes % (A) 18.4 %; MCH 31.1 pg (27.0-32.0); MCHC 31.5 g/dL (32.0-37.0); MCV 98.6 fL (80.0-97.0); Mean Platelet Volume 10.9 fL (9.5-12.2); Monocytes # (A) 0.63 X 10*3/uL (0.20-1.00); Monocytes % (A) 5.9 %; Neutrophils # (A) 7.81 X 10*3/uL (1.80-7.70); Neutrophils % (A) 72.8 %; Platelet Count 268 X 10*3/uL (140-440); RBC 2.96 X 10*6/uL (4.40-5.60); RDW 14.8 % (11.5-14.5); WBC 10.71 X 10*3/uL (4.50-10.00)
--- NOTE | 2020-04-08 10:20 | P.PN ---
Subjective Progress Note Date: 04/08/20 Principal diagnosis: Bilateral wrist lacerations. Median nerve laceration right wrist. This is a 64-year-old male who is admitted to [facility] on 04/05/2020 after being found in his bathtub having cut both of his wrists in a suicide attempt. The patient suffers from severe depression. He was admitted for psychiatric evaluation. Orthopedics was consulted for evaluation of both wrists. He is complaining of numbness to the right middle and part of the index finger. He states that he can still use the fingers and reports no muscle weakness. 04/08/2020: The patient complains of mild pain about both wrists. He states that his motion is improving to the fingers. He continues to have numbness to the little finger and the ulnar aspect of the index finger. No other new complaints or concerns today. Vital signs are stable. Objective - Vital Signs Vital signs: Vital Signs Temp 98.5 F 04/08/20 08:00 Pulse 83 04/08/20 08:00 Resp 18 04/08/20 08:00 BP 131/80 04/08/20 08:00 Pulse Ox 91 L 04/08/20 09:49 Intake & Output 04/07/20 04/08/20 04/08/20 18:59 06:59 18:59 Intake Total 1620 Output Total 2 Balance 1620 -2 Intake: Oral 1620 Output: Urine 2 Other: Voiding Method Urinal Urinal # Voids 1 2 # Bowel Movements 1 1 - Exam This is a pleasant 64-year-old male in no acute distress. Exam of bilateral wrist reveals that his dressings are clean, dry and intact. He has improved range of motion of the fingers with full extension of all 5 fingers. He can make a full fist. He continues to have numbness about the middle finger and ulnar aspect of the index finger. Capillary refill is less than 2 seconds. - Labs CBC & Chem 7: 04/08/20 06:34 04/08/20 06:34 Labs: Abnormal Lab Results - Last 24 Hours (Table) 04/07/20 04/07/20 04/07/20 Range/Units 06:14 11:44 16:20 WBC (4.50-10.00) X 10*3/uL RBC (4.40-5.60) X 10*6/uL Hgb (13.0-17.0) g/dL Hct (39.6-50.0) % MCV (80.0-97.0) fL MCHC (32.0-37.0) g/dL RDW (11.5-14.5) % Immature Gran # (0.00-0.04) X 10*3/uL Neutrophils # (1.80-7.70) X 10*3/uL Carbon Dioxide (21.6-31.8) mmol/L Anion Gap (4.00-12.00) mmol/L BUN/Creatinine Ratio (12.00-20.00) Ratio POC Glucose (mg/dL) 155 H 125 H (75-99) mg/dL Calcium (8.7-10.3) mg/dL CMV IgG Ab Reactive A (Non-Reactive) 04/07/20 04/08/20 04/08/20 Range/Units 20:39 06:34 06:34 WBC 10.71 H (4.50-10.00) X 10*3/uL RBC 2.96 L (4.40-5.60) X 10*6/uL Hgb 9.2 L (13.0-17.0) g/dL Hct 29.2 L (39.6-50.0) % MCV 98.6 H (80.0-97.0) fL MCHC 31.5 L (32.0-37.0) g/dL RDW 14.8 H (11.5-14.5) % Immature Gran # 0.06 H (0.00-0.04) X 10*3/uL Neutrophils # 7.81 H (1.80-7.70) X 10*3/uL Carbon Dioxide 33.5 H (21.6-31.8) mmol/L Anion Gap 3.50 L (4.00-12.00) mmol/L BUN/Creatinine Ratio 10.00 L (12.00-20.00) Ratio POC Glucose (mg/dL) 126 H (75-99) mg/dL Calcium 8.1 L (8.7-10.3) mg/dL CMV IgG Ab (Non-Reactive) 04/08/20 Range/Units 06:37 WBC (4.50-10.00) X 10*3/uL RBC (4.40-5.60) X 10*6/uL Hgb (13.0-17.0) g/dL Hct (39.6-50.0) % MCV (80.0-97.0) fL MCHC (32.0-37.0) g/dL RDW (11.5-14.5) % Immature Gran # (0.00-0.04) X 10*3/uL Neutrophils # (1.80-7.70) X 10*3/uL Carbon Dioxide (21.6-31.8) mmol/L Anion Gap (4.00-12.00) mmol/L BUN/Creatinine Ratio (12.00-20.00) Ratio POC Glucose (mg/dL) 108 H (75-99) mg/dL Calcium (8.7-10.3) mg/dL CMV IgG Ab (Non-Reactive) Assessment and Plan (1) Laceration of right median nerve Current Visit: Yes Status: Acute Code(s): S54.11XA - INJURY OF MEDIAN NERVE AT FOREARM LEVEL, RIGHT ARM, INIT SNOMED Code(s): 459678652 (2) Depression Current Visit: Yes Status: Acute Code(s): F32.9 - MAJOR DEPRESSIVE DISORDER, SINGLE EPISODE, UNSPECIFIED SNOMED Code(s): 31869689 (3) Laceration of wrist, left Current Visit: Yes Status: Acute Code(s): S61.512A - LACERATION WITHOUT FOREIGN BODY OF LEFT WRIST, INIT ENCNTR SNOMED Code(s): 49924429430468365 (4) Laceration of wrist, right Current Visit: Yes Status: Acute Code(s): S61.511A - LACERATION WITHOUT FOREIGN BODY OF RIGHT WRIST, INIT ENCNTR SNOMED Code(s): 97710410547181664 (5) Suicide attempt Current Visit: Yes Status: Acute Code(s): T14.91XA - SUICIDE ATTEMPT, INITIAL ENCOUNTER SNOMED Code(s): 93709149 Plan: The clinical findings are discussed with the patient and nursing staff. Our hand surgeon does not practice at [facility]. He is strictly outpatient care in the office and surgery Center. If the median nerve is to be repaired is recommended that it be repaired within the first week or so of injury to have the best chance of optimal outcome. If it is our goal to repair the nerve he should be transferred to a tertiary care center so that they can care for him orthopedically and psychiatrically in the same center. The patient states that he does not really want to have a surgery if he can help it. He is aware that he may have chronic numbness to the middle finger and states that he is fine with that. I do recommend that he at least have a follow-up evaluation with Dr. Noel Laboy to discuss options.
[2020-04-08 11:12] LABS: Glucose,Whole Blood 117 mg/dL (75-99)
[2020-04-08 14:04] VITALS: BP 121/66; PULSE 82
--- NOTE | 2020-04-08 14:24 | P.DS ---
Providers Date of admission: 04/07/20 08:17 Expected date of discharge: 04/08/20 Attending physician: Chrissy Blas DO Consults: 04/05/20 21:38 Consult Physician Urgent Consulting Provider: Jazzy Chin Consult Reason/Comments: Medical management Do you want consulting provider notified?: Yes Consult Physician Urgent Consulting Provider: Luis Alberto Mcleod Consult Reason/Comments: Suicide attempt, depression Do you want consulting provider notified?: Yes 04/06/20 08:55 Consult Physician Routine Consulting Provider: Srhuthi Andino Consult Reason/Comments: elevated LFTs Do you want consulting provider notified?: Yes 04/06/20 10:44 Consult Physician Routine Consulting Provider: Brian Iraheta Consult Reason/Comments: trauma Do you want consulting provider notified?: Already Contacted 04/06/20 12:36 Consult Physician Routine Consulting Provider: Jluis Laboy Consult Reason/Comments: Finger numbness after laceration Do you want consulting provider notified?: Yes Primary care physician: Stated None Hospital Course: 64-year-old male with a PMH of hypertension, depression, and right BKA, who was brought in by EMS after he attempted suicide by cutting both his wrists. The patient stated that his social situation has gradually worsened and that he no longer finds magali in his life and wanted to "end it all". He was found by EMS in his bathtub, tinged with blood. When seen he was having bilateral wrist pain, 4 out of 10 at time of interview. Patient also reported occasional right upper quadrant cramping abdominal pain, not associated with meals, nonradiating, unable to quantify. Denied additional complaints. Denied chest pain, shortness of breath, fever, chills, cough, nausea, vomiting, diarrhea. In the ER he had upper extremity CTA and that was unremarkable. Laboratory evaluation revealed leukocytosis of 24, AST 711, ALT 3928, total bilirubin 1.2, alk phos 93, hemoglobin 14, sodium 130, chloride 94, CO2 21, BUN 26, creatinine 1.32, glucose 238. Urine drug screen was positive for opiates and marijuana. Covid 19 testing was negative. He was initially admitted to trauma services and they have transferred to admission to medicine. Liver ultrasound which was done due to elevated LFTs revealed normal hepatic textures but dilated common bile duct. When asked about etiologies for his liver failure he stated that when he was admitted previously they told him that he had liver disease and chronic kidney disease stage III. He states that he used to be somewhat heavy drinker but was never an alcoholic and has not drink in 15 years. He has no known hepatitis exposures. He does not use illicit drug needles. He reported that he uses 1000 mg Tylenol tablets 4-6 times a day after being told he needed to come off of his narcotic medications. He has been doing this for quite some time. He denied any herbal supplements but does smoke marijuana. No family history of liver disease. Denies any unusual ingestions. Upon follow up liver function tests were trending down and liver damage was possibly related to shock liver from blood loss on top of chronic Tylenol use. Hepatitis profile is negative. Patient was evaluated by GI service. For the bilateral wrist lacerations he had sutures placed on 04/05/20. He was seen by orthopedics who stated that patient will need evaluation by hand surgery Dr. Laboy, who unfortunately does not have privileges in the hospital and has to see him in the office. I discussed the case with orthopedic PA who stated that patient can be seen in the office next and possibly have median nerve repair on Thursday. I discussed this with the psychiatrist who stated that patient will likely be out of the hospital by then. He was followed by psychiatry service who recommended inpatient psychiatric admission upon discharge. Plan - Discharge Summary Discharge Rx Participant: Yes New Discharge Prescriptions: New DULoxetine HCL [Cymbalta] 30 mg PO DAILY capsule. Melatonin 5 mg PO HS PRN tablet PRN Reason: Insomnia HYDROcodone/APAP 5-325MG [Pl[place] 5-325] 1 each PO Q6HR PRN tab PRN Reason: Pain Acetaminophen Tab [Tylenol] 650 mg PO Q6HR PRN #0 tab PRN Reason: Fever and/ or Mild Pain Amoxicillin/Potassium Clav [Augmentin 875-125 Tablet] 1 tab PO BID 5 Days #10 tab Continue Lisinopril [Zestril] 10 mg PO DAILY Bumetanide 2 mg PO BID Discharge Medication List Bumetanide 2 mg PO BID 04/05/20 [History] Lisinopril [Zestril] 10 mg PO DAILY 04/05/20 [History] Acetaminophen Tab [Tylenol] 650 mg PO Q6HR PRN #0 tab 04/08/20 [Rx] Amoxicillin/Potassium Clav [Augmentin 875-125 Tablet] 1 tab PO BID 5 Days #10 tab 04/08/20 [Rx] DULoxetine HCL [Cymbalta] 30 mg PO DAILY capsule. 04/08/20 [Rx] HYDROcodone/APAP 5-325MG [Placentia 5-325] 1 each PO Q6HR PRN tab 04/08/20 [Rx] Melatonin 5 mg PO HS PRN tablet 04/08/20 [Rx] Follow up Appointment(s)/Referral(s): None,Stated [Primary Care Provider] - 1-2 days Jluis Laboy DO [Doctor of Osteopathic Medicine] - 04/12/20 Activity/Diet/Wound Care/Special Instructions: Maintain clean dressing to bilateral wrists. Make appt with Dr Jluis Laboy for April 12. Discharge Disposition: TRANSFER TO PSYCH HOSP/UNIT
--- NOTE | 2020-04-08 16:08 | P.PN ---
Subjective Progress Note Date: 04/08/20 CHIEF COMPLAINT: Bilateral wrist laceration HISTORY OF PRESENT ILLNESS: The patient is a 64-year-old male admitted secondary to suicide attempt by bilateral wrist laceration. He is able to move both wri sts. He has mild numbness along the hand. He was seen by the orthopedic team. CT results reviewed with patient of absence of gallbladder. Patient denies any gallbladder removal. ROS: No reports of nausea and vomiting. No fevers or chills. No new chest pain. No productive sputum PHYSICAL EXAM: VITAL SIGNS: Reviewed CONSTITUTIONAL: Well developed and in no acute distress. EYES: Conjuctivae without sclera icterus. Extraocular movements grossly intact. HEAD, EARS, NOSE, THROAT: Moist buccal mucosa. Head is atraumatic, normocephalic. Hears conversational speech. No nasal drainage. NECK: Supple. No thyroidomegaly. RESPIRATORY: Non-labored respirations and equal bilateral excursions. CARDIOVASCULAR: Palpable 2+ radial pulses. Regular rate. Regular rhythm. ABDOMEN: Soft. Nontender. MUSCULOSKELETAL: No gross deformity of the lower extremities noted. No clubbing. No cyanosis. Dressing intact along bilateral wrists. SKIN: Good skin turgor. Well perfused. NEUROLOGIC: Cranial nerves II through XII grossly intact. No focal or lateralizing signs. PSYCH: Appropriate affect. Alert and oriented to person, place and time. CLINICAL LABS: WBC elevated from 7.49-10.71, hemoglobin of 8.8-9.2 STUDIES: CT of the abdomen and pelvis demonstrates absence of gallbladder. Calcifications versus artifact identified along the hepatic fossa. Diffuse bowel gas pattern. Scoliosis of lumbar fine with osteoarthritis. This is my independent interpretation. REPORT: CT of the abdomen and pelvis report reviewed demonstrating L5-S1 spondylolisthesis. ASSESSMENT: 1. Traumatic bilateral wrist laceration, attempted suicide 2. Bilateral nerve laceration of the wrist 3. Anemia 4. Elevated AST and ALT 5. Leukocytosis PLAN: 1. Patient had been seen by ortho with recommendation for immediate hand follow up within 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 Additional p resence hyperdense area in the hepatic fossa may be gallstones. 3. Overall, he can follow up as outpatient for further work-up. Objective - Vital Signs Vital signs: Vital Signs Temp 98.5 F 04/08/20 14:00 Pulse 82 04/08/20 14:00 Resp 18 04/08/20 14:00 BP 121/66 04/08/20 14:00 Pulse Ox 92 L 04/08/20 14:00 Intake & Output 04/07/20 04/08/20 04/08/20 18:59 06:59 18:59 Intake Total 1620 Output Total 2 Balance 1620 -2 Intake: Oral 1620 Output: Urine 2 Other: Voiding Method Urinal Urinal # Voids 1 2 # Bowel Movements 1 1 - Labs CBC & Chem 7: 04/08/20 06:34 04/08/20 06:34 Labs: Abnormal Lab Results - Last 24 Hours (Table) 04/07/20 04/07/20 04/08/20 Range/Units 16:20 20:39 06:34 WBC (4.50-10.00) X 10*3/uL RBC (4.40-5.60) X 10*6/uL Hgb (13.0-17.0) g/dL Hct (39.6-50.0) % MCV (80.0-97.0) fL MCHC (32.0-37.0) g/dL RDW (11.5-14.5) % Immature Gran # (0.00-0.04) X 10*3/uL Neutrophils # (1.80-7.70) X 10*3/uL Carbon Dioxide 33.5 H (21.6-31.8) mmol/L Anion Gap 3.50 L (4.00-12.00) mmol/L BUN/Creatinine Ratio 10.00 L (12.00-20.00) Ratio POC Glucose (mg/dL) 125 H 126 H (75-99) mg/dL Calcium 8.1 L (8.7-10.3) mg/dL 04/08/20 04/08/20 04/08/20 Range/Units 06:34 06:37 11:11 WBC 10.71 H (4.50-10.00) X 10*3/uL RBC 2.96 L (4.40-5.60) X 10*6/uL Hgb 9.2 L (13.0-17.0) g/dL Hct 29.2 L (39.6-50.0) % MCV 98.6 H (80.0-97.0) fL MCHC 31.5 L (32.0-37.0) g/dL RDW 14.8 H (11.5-14.5) % Immature Gran # 0.06 H (0.00-0.04) X 10*3/uL Neutrophils # 7.81 H (1.80-7.70) X 10*3/uL Carbon Dioxide (21.6-31.8) mmol/L Anion Gap (4.00-12.00) mmol/L BUN/Creatinine Ratio (12.00-20.00) Ratio POC Glucose (mg/dL) 108 H 117 H (75-99) mg/dL Calcium (8.7-10.3) mg/dL Assessment and Plan (1) Depression Status: Acute Code(s): F32.9 - MAJOR DEPRESSIVE DISORDER, SINGLE EPISODE, UNSPECIFIED SNOMED Code(s): 28691229 (2) Elevated liver enzymes Status: Acute Code(s): R74.8 - ABNORMAL LEVELS OF OTHER SERUM ENZYMES SNOMED Code(s): 497599153 (3) Laceration of wrist, left Status: Acute Code(s): S61.512A - LACERATION WITHOUT FOREIGN BODY OF LEFT WRIST, INIT ENCNTR SNOMED Code(s): 32077354502066704 (4) Laceration of wrist, right Status: Acute Code(s): S61.511A - LACERATION WITHOUT FOREIGN BODY OF RIGHT WRIST, INIT ENCNTR SNOMED Code(s): 20771721860527846 (5) Leukocytosis Status: Acute Code(s): D72.829 - ELEVATED WHITE BLOOD CELL COUNT, UNSPECIFIED SNOMED Code(s): 610981332 (6) Suicide attempt Status: Acute Code(s): T14.91XA - SUICIDE ATTEMPT, INITIAL ENCOUNTER SNOMED Code(s): 24928422 (7) Anemia Status: Acute Code(s): D64.9 - ANEMIA, UNSPECIFIED SNOMED Code(s): 929252725
[2020-04-08 16:36] LABS: Glucose,Whole Blood 124 mg/dL (75-99)
[2020-04-09 14:39] LABS: EBV-EA (IgG) <0.2 AI; EBV-EBNA(IgG) >8.0 AI; EBV-VCA (IgG) >8.0 AI; EBV-VCA (IgM) 0.2 AI
== END 2020-04-08 17:07 | DRG 988 ==
LOC: EC 18:42 → 4SSUR 21:38 → OBSVTOIN 04-07 08:17
PROVIDERS: ADMIT Internal Medicine; ATTEND Internal Medicine
PROC: 0JQH0ZZ Repair Left Lower Arm Subcutaneous Tissue and Fascia, Open Approach (ICD-10-PCS; principal; 2020-04-05)
PROC: 0JQG0ZZ Repair Right Lower Arm Subcutaneous Tissue and Fascia, Open Approach (ICD-10-PCS; principal; 2020-04-05)
DX: B17.9 Acute viral hepatitis, unspecified (principal); E87.1 Hypo-osmolality and hyponatremia; F32.2 Major depressive disorder, single episode, severe without psychotic features; N17.9 Acute kidney failure, unspecified; D62 Acute posthemorrhagic anemia; S61.512A Laceration without foreign body of left wrist, initial encounter; S61.511A Laceration without foreign body of right wrist, initial encounter; X78.9XXA Intentional self-harm by unspecified sharp object, initial encounter; Y92.002 Bathroom of unspecified non-institutional (private) residence as the place of occurrence of the external cause; E11.22 Type 2 diabetes mellitus with diabetic chronic kidney disease; F12.10 Cannabis abuse, uncomplicated; G89.29 Other chronic pain; I12.9 Hypertensive chronic kidney disease with stage 1 through stage 4 chronic kidney disease, or unspecified chronic kidney disease; J45.909 Unspecified asthma, uncomplicated; K72.90 Hepatic failure, unspecified without coma; K83.8 Other specified diseases of biliary tract; N18.30 Chronic kidney disease, stage 3 unspecified; S54.11XA Injury of median nerve at forearm level, right arm, initial encounter; Z20.822 Contact with and (suspected) exposure to COVID-19; D72.829 Elevated white blood cell count, unspecified; Z79.899 Other long term (current) drug therapy; Z87.891 Personal history of nicotine dependence; Z89.511 Acquired absence of right leg below knee; Z90.89 Acquired absence of other organs
CPT/HCPCS: 12005; 36415; 71046; 74177; 76705; 80048; 80053; 80074; 80143; 80179; 80306; 83036; 83735; 84100; 85025; 85027; 85610; 85730; 86644; 86645; 86663; 86664; 86665; 86850; 86900; 86901; 87522; 87635; 90471; 90715; 93005; 94760; 96361; 96365; 96375; 96376; 99291

== ENCOUNTER 2020-04-08 16:40 | Inpatient (IN) | payer MEDICARE, MEDICAID ==
[2020-04-08] MEDS ORDERED: LORazepam 1 MG TAB PO PRN (16:51)
[2020-04-08] MEDS ORDERED: MAG HYDROX/AL HYDROX/SIMETH 30 ML CUP PO PRN (16:51)
[2020-04-08] MEDS ORDERED: MAGNESIUM HYDROXIDE 2,400 MG/10 ML CUP PO PRN (16:51)
[2020-04-08] MEDS ORDERED: MELATONIN 5 MG TABLET PO PRN (16:53)
[2020-04-08] MEDS ORDERED: LORazepam 2 MG/ML INJ IM PRN (16:54)
[2020-04-08] MEDS ORDERED: HALOPERIDOL LACTATE 5 MG/ML 1 ML VIAL IM PRN (16:55)
[2020-04-08] MEDS ORDERED: haloperidoL 1 MG TAB PO PRN (16:56)
[2020-04-08] MEDS: AMOXIC-POT CLAV 875-125MG 1 EACH TAB PO SCH (21:03)
[2020-04-08] MEDS: HYDROcodone/APAP 5-325MG 1 EACH TAB PO PRN (21:03)
[2020-04-08] MEDS: BUMETANIDE 1 MG TAB PO SCH (21:52)
[2020-04-09 07:28] LABS: Basophils # (A) 0.1 k/uL (0-0.2); Basophils % (A) 0 %; Eosinophils # (A) 0.2 k/uL (0-0.7); Eosinophils % (A) 2 %; HGB 10.9 gm/dL (13.0-17.5); Lymphocytes # (A) 2.7 k/uL (1.0-4.8); Lymphocytes % (A) 24 %; MCH 30.5 pg (25.0-35.0); MCHC 32.1 g/dL (31.0-37.0); MCV 95.1 fL (80.0-100.0); Mean Platelet Volume 7.8; Monocytes # (A) 0.8 k/uL (0-1.0); Monocytes % (A) 7 %; Neutrophils # (A) 7.6 k/uL (1.3-7.7); Neutrophils % (A) 66 %; Platelet Count 374 k/uL (150-450); RBC 3.57 m/uL (4.30-5.90); RDW 14.5 % (11.5-15.5); WBC 11.5 k/uL (3.8-10.6)
[2020-04-09 07:44] LABS: AST 71 U/L (17-59); African American GFR (CKD) >90 (>60 ml/min/1.73 sqM); Albumin 3.9 g/dL (3.5-5.0); Alkaline Phosphatase 81 U/L (38-126); Anion Gap 10 mmol/L; Blood Urea Nitrogen 9 mg/dL (9-20); Calcium 8.4 mg/dL (8.4-10.2); Carbon Dioxide 34 mmol/L (22-30); Chloride 89 mmol/L (98-107); Cholesterol 166 mg/dL (<200); Glucose 106 mg/dL (74-99); HDL Cholesterol 42 mg/dL (40-60); LDL Cholesterol,Calculated 97 mg/dL (0-99); Non-African American GFR(CKD) >90 (>60 ml/min/1.73 sqM); Potassium 3.8 mmol/L (3.5-5.1); Sodium 133 mmol/L (137-145); Total Bilirubin 0.7 mg/dL (0.2-1.3); Total Protein 6.4 g/dL (6.3-8.2); Triglycerides 134 mg/dL (<150)
[2020-04-09 07:47] LABS: Glucose,Whole Blood 113 mg/dL (75-99)
[2020-04-09 07:57] LABS: ALT 871 U/L (4-49)
[2020-04-09] MEDS: BUMETANIDE 1 MG TAB PO SCH ×2 (08:28→20:20)
[2020-04-09] MEDS: lisinopriL 10 MG TAB PO SCH (08:28)
[2020-04-09] MEDS: AMOXIC-POT CLAV 875-125MG 1 EACH TAB PO SCH ×2 (08:28→20:19)
[2020-04-09] MEDS: HYDROcodone/APAP 5-325MG 1 EACH TAB PO PRN ×3 (08:31→20:21)
[2020-04-09] MEDS ORDERED: DULoxetine HCL 30 MG CAPSULE.DR PO SCH (09:00)
--- NOTE | 2020-04-09 10:20 | P.HP ---
Psychiatric H&P - . H&P Date: 04/09/20 History & Physical: Allergies Allergy/AdvReac Type Severity Reaction Status Date / Time codeine Allergy Rash/Hives Verified 04/08/20 17:20 Vital Signs Temp 98.2 F 04/09/20 06:32 Pulse 94 04/09/20 08:32 Resp 16 04/09/20 06:32 BP 131/85 04/09/20 08:32 Pulse Ox 92 L 04/08/20 17:52 Intake & Output 04/08/20 04/09/20 04/09/20 18:59 06:59 18:59 Weight 117.93 kg Laboratory Last Values WBC 11.5 k/uL (3.8-10.6) H 04/09/20 06:29 RBC 3.57 m/uL (4.30-5.90) L 04/09/20 06:29 Hgb 10.9 gm/dL (13.0-17.5) L 04/09/20 06:29 Hct 34.0 % (39.0-53.0) L 04/09/20 06:29 MCV 95.1 fL (80.0-100.0) 04/09/20 06:29 MCH 30.5 pg (25.0-35.0) 04/09/20 06:29 MCHC 32.1 g/dL (31.0-37.0) 04/09/20 06:29 RDW 14.5 % (11.5-15.5) 04/09/20 06:29 Plt Count 374 k/uL (150-450) 04/09/20 06:29 MPV 7.8 04/09/20 06:29 Neutrophils % 66 % 04/09/20 06:29 Lymphocytes % 24 % 04/09/20 06:29 Monocytes % 7 % 04/09/20 06:29 Eosinophils % 2 % 04/09/20 06:29 Basophils % 0 % 04/09/20 06:29 Neutrophils # 7.6 k/uL (1.3-7.7) 04/09/20 06:29 Lymphocytes # 2.7 k/uL (1.0-4.8) 04/09/20 06:29 Monocytes # 0.8 k/uL (0-1.0) 04/09/20 06:29 Eosinophils # 0.2 k/uL (0-0.7) 04/09/20 06:29 Basophils # 0.1 k/uL (0-0.2) 04/09/20 06:29 Sodium 133 mmol/L (137-145) L 04/09/20 06:29 Potassium 3.8 mmol/L (3.5-5.1) 04/09/20 06:29 Chloride 89 mmol/L (98-107) L 04/09/20 06:29 Carbon Dioxide 34 mmol/L (22-30) H 04/09/20 06:29 Anion Gap 10 mmol/L 04/09/20 06:29 BUN 9 mg/dL (9-20) 04/09/20 06:29 Creatinine 0.91 mg/dL (0.66-1.25) 04/09/20 06:29 Est GFR (CKD-EPI)AfAm >90 (>60 ml/min/1.73 sqM) 04/09/20 06:29 Est GFR (CKD-EPI)NonAf >90 (>60 ml/min/1.73 sqM) 04/09/20 06:29 Glucose 106 mg/dL (74-99) H 04/09/20 06:29 POC Glucose (mg/dL) 113 mg/dL (75-99) H 04/09/20 07:43 POC Glu Wave Soldering Machine Operator ID Nidhi Nguyễn 04/09/20 07:43 Calcium 8.4 mg/dL (8.4-10.2) 04/09/20 06:29 Total Bilirubin 0.7 mg/dL (0.2-1.3) 04/09/20 06:29 AST 71 U/L (17-59) H 04/09/20 06:29 ALT 871 U/L (4-49) H 04/09/20 06:29 Alkaline Phosphatase 81 U/L (38-126) 04/09/20 06:29 Total Protein 6.4 g/dL (6.3-8.2) 04/09/20 06:29 Albumin 3.9 g/dL (3.5-5.0) 04/09/20 06:29 Triglycerides 134 mg/dL (<150) 04/09/20 06:29 Cholesterol 166 mg/dL (<200) 04/09/20 06:29 LDL Cholesterol, Calc 97 mg/dL (0-99) 04/09/20 06:29 HDL Cholesterol 42 mg/dL (40-60) 04/09/20 06:29 04/09/20 10:09 IDENTIFYING DATA: Patient is a 64-year-old male who is , who currently lives alone, was admitted for suicidal ideation with an attempt by self-induced bilateral wrist lacerations HPI: The patient presented to the hospital on 04/05/2020 and was brought in by EMS after he was found in the shower with his wrists cut open. As per EMS, was difficult to assess how much blood the patient has lost. The patient was subsequently admitted to the medical floor for further evaluation and treatment. Patient was having elevated liver enzymes on admission. Patient was seen by psychiatric consult liaison Dr. oshea. He expressed that he has been depressed for months and his depression becomes worse at night when he is alone by himself. The patient endorses significant symptoms of depression including low mood, feeling overwhelmed, hopelessness, helplessness, and suicidal ideation. Patient reports decreased appetite and difficulty sleeping. He states his energy has been low. He was reporting anhedonia. The patient states that he may be impulsive decision to cut his wrists in the shower using a box fabricator. He then contacted his sister who notified EMS was is currently brought him to the emergency department. The patient also reports that he previously overdosed on Seroquel a few years ago in an attempt to take his own life. The patient states that he began expressing depression 2-3 years ago. The patient was seen by orthopedic PA for evaluation and recommended that patient follow-up with Dr. Schmidt vaccines solutions specialist in the office on for potential surgery on Thursday. Patient was transferred to the mental health unit yesterday for evaluation and treatment. Patient claims that his mood has been gradually improving on the Cymbalta and was agreeable to have his dose increased. He states that he still dealing with sleep difficulties sleeping approximately 1-2 hours a night. He claims that he has guilt for doing what he has done to his wrist. He claims that his anxiety has been improving however continues to have some pain in his hands when he moves his fingers. He claims that he has been talking with his sister about the potential plan for discharge and that if he can stay with her upon release. He spoke up more about his stressors at home and states that it was "mainly because I was alone at night time and my mind was racing". He claims that he attributes a lot of his recent stressors to the pandemic and not being able to drive and feeling more isolated. the patient denies any significant history of auditory or visual hallucinations. He denies any paranoia or delusions. He denies any current thoughts of suicide intent or plan or any homicidal ideations intent or plan.Patient admits to using cannabis regularly. PAST PSYCHIATRIC HISTORY: Patient states that he has a history of depression and anxiety. Patient denies being on any psychiatric medications however was recently started on Cymbalta and melatonin while on the medical floors. Patient denies any previous psychiatric hospitalizations. Patient denies any psychiatric outpatient follow-up. 2 suicide attempts in the past, one overdose and when cutting his wrists which was the previous episode. PMH: Borderline hypertension and diabetes. Patient has had bone grafts in his feet, below the right knee amputation, larynx surgery. ALLERGIES: as per EMR SOCIAL HISTORY: ALLERGIES: Codeine CHEMICAL DEPENDENCY HISTORY: The patient reports that he quit drinking 15 years ago. Since before quitting alcohol, he used to binge on weekends. He denies any history of rehabilitation or detox. The patient denies any tobacco or illicit drug use. He does report significant marijuana use. He states he smokes "a couple joints per day." FAMILY PSYCHIATRIC/SUBSTANCE USE HISTORY: The patient claims that his brother has some form of mental illness and has been psychiatrically hospitalized in the past. SOCIAL HISTORY: Patient was born and raised in [place], [place]. He moved to [place] at the age of 9. He reports that growing up his family has been very supportive and his parents stayed together. He is the third eldest of 7 children. He was producing employed as a nurse's aide. She reports that he stopped working 20 years ago after the amputation of his leg. The patient was previously but is now as of 2004. He states that he was for 25 years. He has 6 adopted children. He does report that his family is very supportive. MENTAL STATUS EXAM: General Appearance: Patient appears to be overweight, stated age is alert, directable, and attempts to be cooperative. Wearing hospital gown. Patient is in a wheelchair. Behavior: Patient is calmly seated without any agitated behavior. Attempts to be cooperative Speech: Patient's speech is fluent and nonpressured. Soft tone of voice Mood/Affect: Mood is depressed however improving mildly, affect is congruent and constricted. Suicidality/Homicidality: Patient denies having any suicidal or homicidal ideation intent or plan. Perceptions: Patient denies any visual hallucinations and denies any auditory hallucinations Though content/process: There is no evidence of any delusional thought content and thought process is linear and goal-directed. Memory and concentration: AOX3, grossly intact for the purposes of this session Judgment and insight: Poor, improving mildly STRENGTHS/WEAKNESSES: strength is that patient is resilient. Weakness is that patient lives alone, history of suicide attempts and is impulsive INTELLECT: average IMPRESSIONS: Major depressive disorder, severe, without psychotic features Cannabis use disorder PLAN: -Patient is admitted under voluntary status to MHU for stabilization of psychiatric symptoms and safety. Patient has signed adult voluntary form and medication consent and is placed in patient's chart. -Medications : Will increase Cymbalta 60 mg daily for mood/anxiety. continue with Melatonin 5 mg daily prn at bedtime for insomnia. added trazodone 25mg qhs prn for mood/insomnia -Ativan and Haldol PRN for agitation/aggression -Patient was counselled on substance abuse and desired to cut back on use -Patient was informed of the risks, benefits and side effects of the medication and patient verbally consented to taking the medications. Patient signed med consent form and was placed in chart. -Internal Medicine consult to perform medical evaluation and physical. Patient was seen by orthopedics PA on the medical floors who claims that patient will need specialized hand surgery by Dr. Pollard however he does not have privileges at this hospital. She recommended patient follow up with Dr. Schmidt on in the clinic with potential for hand surgery on Thursday. Patient claims that he is willing to go to this appointment and his sister will drive him -NRT - not needed as patient does not smoke. -SW on board for discharge planning. Encourage patient to participate in groups to work on coping skills. liekly discharge before outpatient ortho appointment on . Patient will likely be staying with his sister upon discharge.
[2020-04-09] MEDS ORDERED: DULoxetine HCL 30 MG CAPSULE.DR PO ONE (10:30)
[2020-04-09] MEDS ORDERED: ALBUTEROL HFA INHALER INHALATION PRN (12:10)
--- NOTE | 2020-04-09 17:31 | P.HPIM ---
History of Present Illness H&P Date: 04/09/20 Chief Complaint: suicide attempt 64-year-old male with a PMH of hypertension, depression, and right BKA, who was brought in by EMS after he attempted suicide by cutting both his wrists. The patient stated that his social situation has gradually worsened and that he no longer finds magali in his life and wanted to "end it all". He was found by EMS in his bathtub, tinged with blood. When seen he was having bilateral wrist pain, 4 out of 10 at time of interview. Patient also reported occasional right upper quadrant cramping abdominal pain, not associated with meals, nonradiating, unable to quantify. Denied additional complaints. Denied chest pain, shortness of breath, fever, chills, cough, nausea, vomiting, diarrhea. He was initially admitted for medical stabilization. Liver ultrasound which was done due to elevated LFTs revealed normal hepatic textures but dilated common bile duct. For the bilateral wrist lacerations he had sutures placed on 04/05/20. He was s een by orthopedics who stated that patient will need evaluation by hand surgery Dr. Laboy, who unfortunately does not have privileges in the hospital and has to see him in the office. Patient will be seen in the office next and possibly have median nerve repair on Thursday. Currently he is doing well. Was asking for an increase in the norco dose for his chronic back pain. He is having minimal numbness in the palmar aspect of the right hand. Otherwise no other complaints. Review of Systems Complete review of system performed, pertinent positives per HPI, otherwise negative Past Medical History Past Medical History: Asthma, Diabetes Mellitus, Hypertension, Respiratory Disorder Additional Past Medical History / Comment(s): borderline hypertension, borderline diabetes; empysema, asthma, chronic low back pain and knee pain History of Any Multi-Drug Resistant Organisms: MRSA Date of last positivie culture/infection: 1997 MDRO Source:: right leg Past Surgical History: Back Surgery, Orthopedic Surgery, Tonsillectomy Additional Past Surgical History / Comment(s): Bone grafts to right leg, right below the knee amputation, larynx surgery, left knee athroscopies, multiple falls Past Anesthesia/Blood Transfusion Reactions: No Reported Reaction Past Psychological History: Anxiety, Depression Additional Psychological History / Comment(s): states has previously tried overdosing but never on a mental health unit; reports depression and anxiety; in 2004, lives alone in [facility] [place] [address], has right BKA-uses prosthesis; 04/05/2020 suicide attempt-lacerations to bilateral wrists requiring sutures. Smoking Status: Former smoker Past Alcohol Use History: Rare Additional Past Alcohol Use History / Comment(s): states rum rarely Past Drug Use History: Marijuana, Opiates Additional Drug Use History / Comment(s): states has taken norco 5s and mariju liam recently Medications and Allergies Home Medications Medication Instructions Recorded Confirmed Type Bumetanide 2 mg PO BID 04/05/20 04/08/20 History Lisinopril [Zestril] 10 mg PO DAILY 04/05/20 04/08/20 History Acetaminophen Tab [Tylenol] 650 mg PO Q6HR PRN #0 tab 04/08/20 04/08/20 Rx Amoxicillin/Potassium Clav 1 tab PO BID 5 Days #10 tab 04/08/20 04/08/20 Rx [Augmentin 875-125 Tablet] DULoxetine HCL [Cymbalta] 30 mg PO DAILY capsule. 04/08/20 04/08/20 Rx HYDROcodone/APAP 5-325MG [Caney 1 each PO Q6HR PRN tab 04/08/20 04/08/20 Rx 5-325] Melatonin 5 mg PO HS PRN tablet 04/08/20 04/08/20 Rx Allergies Allergy/AdvReac Type Severity Reaction Status Date / Time codeine Allergy Rash/Hives Verified 04/08/20 17:20 Physical Exam Vitals: Vital Signs Temp Pulse Resp BP Pulse Ox 04/09/20 11:29 95 04/09/20 10:49 15 92 L 04/09/20 08:32 94 131/85 04/09/20 06:32 98.2 F 92 16 141/91 04/08/20 17:52 97.2 F L 88 16 122/75 92 L Constitutional: No acute distress, conversant, pleasant Eyes:Anicteric sclerae, moist conjunctiva, no lid-lag, PERRLA, ENMT: Oropharynx clear, no erythema, exudates Neck: Supple, FROM, no masses, or JVD, No carotid bruits, No thyromegaly Lungs: Clear to auscultation, Clear to percussion, Normal respiratory effort, no accessory muscle use Cardiovascular: Heart regular in rate and rhythm, No murmurs, gallops, or rubs, No peripheral edema Abdominal: Soft, Nontender, no guarding, rebound or rigidity, Normoactive bowel sounds, No hepatomegaly, No splenomegaly, No palpable mass Skin: Normal temperature, tone, texture, turgor, no induration, No subcutaneous nodules, No rash, lesions, No ulcers Extremities: Right bka. Bilateral horizontal lacerations across the volar aspect of the wrists. No digital cyanosis, No clubbing, Pedal pulses intact and symmetrical, Radial pulses intact and symmetrical, No calf tenderness Psychiatric: Alert and oriented to person, place and time Neuro: Muscles Strength 5/5 in all 4 extremities, Sensation to light touch grossly present throughout, Cranial nerves II-XII grossly intact, no focal sensory deficits Results CBC & Chem 7: 04/09/20 06:29 04/09/20 06:29 Labs: Abnormal Lab Results - Last 24 Hours (Table) 04/09/20 04/09/20 04/09/20 Range/Units 06:29 06:29 07:43 WBC 11.5 H (3.8-10.6) k/uL RBC 3.57 L (4.30-5.90) m/uL Hgb 10.9 L (13.0-17.5) gm/dL Hct 34.0 L (39.0-53.0) % Sodium 133 L (137-145) mmol/L Chloride 89 L (98-107) mmol/L Carbon Dioxide 34 H (22-30) mmol/L Glucose 106 H (74-99) mg/dL POC Glucose (mg/dL) 113 H (75-99) mg/dL AST 71 H (17-59) U/L ALT 871 H (4-49) U/L Assessment and Plan Plan: Suicide attempt with bilateral wrist lacerations and possible median nerve injury -Sutures placed 04/05/20 -Will be seen in Dr. Laboy's office this week upon discharge from unit -Pain control Transaminitis, undetermined etiology -Likely secondary to chronic overexposure to Tylenol versus shock liver due to hemorrhagic shock -Hepatitis A, B, and C are negative -Repeat LFTs in 1 month to ensure resolution. -Avoid liver toxic medications Acute blood loss anemia secondary to above -Resolved. Diabetes mellitus type 2 -Diet controlled at home -Hemoglobin A1c 6.2 Chronic pain - outpatient pain mgt follow-up
[2020-04-09 17:52] LABS: Glucose,Whole Blood 101 mg/dL (75-99)
[2020-04-09] MEDS ORDERED: traZODone HCL 50 MG TAB PO SCH (21:00)
[2020-04-10 07:45] LABS: Glucose,Whole Blood 132 mg/dL (75-99)
[2020-04-10] MEDS: AMOXIC-POT CLAV 875-125MG 1 EACH TAB PO SCH ×2 (08:06→20:02)
[2020-04-10] MEDS: BUMETANIDE 1 MG TAB PO SCH ×2 (08:06→20:02)
[2020-04-10] MEDS: DULoxetine HCL 60 MG CAPSULE.DR PO SCH (08:07)
[2020-04-10] MEDS: lisinopriL 10 MG TAB PO SCH (08:07)
[2020-04-10] MEDS: HYDROcodone/APAP 5-325MG 1 EACH TAB PO PRN ×3 (08:08→20:03)
--- NOTE | 2020-04-10 09:23 | P.PN ---
Progress Note - Text Progress Note Date: 04/10/20 Interval History: Patient was seen near the nurse's desk after receiving his medications and was directable and agreeable to speak with fha underwriter in the office. Patient continues to be in a wheelchair and appeared to be mother more cooperative with fha underwriter today. He claims that he is still experiencing some numbness and tingling in his right hand when he reaches over the wheelchair to cigar packer and picker objects. He states that other than that she is able to move all of his fingers and both his hands and his not feeling much pain or paresthesias. He states that his mood has been gradually improving and along with his anxiety is also improving. He states that he was able to sleep approximately 4 hours last night with the trazodone and was agreeable to have it increased to 50 mg for tonight. He states that he has been trying to go to groups and participate as best he can. He spoke about wanting to go to his sister Dixie's house upon discharge and states that she will be able to help him go to his follow-up appointment with the hand surgeon. He states that his appetite has been improving. At this time patient denies any suicidal or homical ideations, intent or plan. Patient denies any auditory, visual hallucinations and denies any paranoia or delusions. Patient denies any side effects from the medications and has been compliant with meds. Mental Status Exam: General Appearance: Patient appears to be overweight, stated age is alert, directable, and attempts to be cooperative. Wearing street clothing. Patient is in a wheelchair. Behavior: Patient is calmly seated without any agitated behavior. More cooperative today. Speech: Patient's speech is fluent and nonpressured. Soft tone of voice Mood/Affect: Mood is depressed however improving mildly, affect is congruent and constricted. Suicidality/Homicidality: Patient denies having any suicidal or homicidal ideation intent or plan. Perceptions: Patient denies any visual hallucinations and denies any auditory hallucinations Though content/process: There is no evidence of any delusional thought content and thought process is linear and goal-directed. Memory and concentration: AOX3, grossly intact for the purposes of this session Judgment and insight: improving mildly Assessment Major depressive disorder, severe, without psychotic features Cannabis use disorder Plan: -Patient continues to meet criteria for inpatient psychiatric admission for symptom stabilization and safety. Patient has signed adult voluntary form and medication consent and was placed in patient's chart. -Medications: Continue Cymbalta 60 mg daily for mood/anxiety. Continue melatonin 5 mg daily at bedtime when necessary for insomnia. Increase trazodone to 50 mg daily at bedtime for mood/insomnia. -When necessary Ativan and Haldol for agitation/aggression. -Patient was seen by orthopedics PA on the medical floors who claims that pat leanna will need specialized hand surgery by Dr. Pollard however he does not have privileges at this hospital. She recommended patient follow up with Dr. Schmidt on in the clinic with potential for hand surgery on Thursday. Patient claims that he is willing to go to this appointment and his sister will drive him -NRT -not needed as patient does not smoke. -SW on board for discharge planning. Encouraged the patient to participate in milieu. likely discharge before outpatient ortho appointment on . Patient will likely be staying with his sister Dixie upon discharge. Will need to confirm date time and location of appointment for Hand surgeon appointment.
[2020-04-10 12:50] LABS: Glucose,Whole Blood 122 mg/dL (75-99)
[2020-04-10 17:54] LABS: Glucose,Whole Blood 91 mg/dL (75-99)
[2020-04-10 20:09] LABS: Glucose,Whole Blood 105 mg/dL (75-99)
[2020-04-10] MEDS ORDERED: traZODone HCL 50 MG TAB PO SCH (21:00)
[2020-04-11] MEDS: BUMETANIDE 1 MG TAB PO SCH ×2 (07:56→20:30)
[2020-04-11] MEDS: DULoxetine HCL 60 MG CAPSULE.DR PO SCH (07:57)
[2020-04-11] MEDS: AMOXIC-POT CLAV 875-125MG 1 EACH TAB PO SCH ×2 (07:57→20:30)
[2020-04-11 07:58] LABS: Glucose,Whole Blood 130 mg/dL (75-99)
[2020-04-11] MEDS: lisinopriL 10 MG TAB PO SCH (07:59)
[2020-04-11] MEDS: HYDROcodone/APAP 5-325MG 1 EACH TAB PO PRN ×3 (08:00→20:32)
--- NOTE | 2020-04-11 09:44 | P.PN ---
Progress Note - Text Progress Note Date: 04/11/20 Interval History: Patient was seen near the nurse's desk after receiving his medications and was directable and agreeable to speak with ad writer in the office. Patient continues to be in a wheelchair today. Patient appeared to be more anxious today and states that his anxiety is "high". He claims that his mood is "not doing the best" and endorsed more depression. He states that last night he did not sleep well at all on the increase in trazodone. He was describing restless leg symptoms "crawling up my body and my stomach". He states he only got approximately 1 hour of sleep last night. He states that he has been trying to go to groups and participate as best he can. He claims that he is anxious about where he will be going and if he can still live on his own once he is discharged from the hospital. He states that his appetite has been improving. At this time patient denies any suicidal or homical ideations, intent or plan. Patient denies any auditory, visual hallucinations and denies any paranoia or delusions. Patient denies any side effects from the medications and has been compliant with meds. Mental Status Exam: General Appearance: Patient appears to be overweight, stated age is alert, directable, and attempts to be cooperative. Wearing street clothing. Patient is in a wheelchair. Behavior: Patient is calmly seated without any agitated behavior. Appears to be more anxious today. Speech: Patient's speech is fluent and nonpressured. Soft tone of voice Mood/Affect: Mood is depressed today, affect is congruent and appears to be anxious. Suicidality/Homicidality: Patient denies having any suicidal or homicidal ideation intent or plan. Perceptions: Patient denies any visual hallucinations and denies any auditory hallucinations Though content/process: There is no evidence of any delusional thought content and thought process is linear and goal-directed. Focused on his symptoms. Memory and concentration: AOX3, grossly intact for the purposes of this session Judgment and insight: improving mildly Assessment Major depressive disorder, severe, without psychotic features Cannabis use disorder Plan: -Patient continues to meet criteria for inpatient psychiatric admission for symptom stabilization and safety. Patient has signed adult voluntary form and medication consent and was placed in patient's chart. -Medications: Increased Cymbalta 90 mg daily for mood/anxiety. Increased melatonin 10 mg daily at bedtime for insomnia. We'll discontinue trazodone due to side effects. -When necessary Ativan and Haldol for agitation/aggression. -Patient was seen by orthopedics PA on the medical floors who claims that patient will need specialized hand surgery by Dr. Pollard however he does not have privileges at this hospital. She recommended patient follow up with Dr. Schmidt on in the clinic with potential for hand surgery on Thursday. P atleanna claims that he is willing to go to this appointment and his sister will drive him -NRT -not needed as patient does not smoke. -SW on board for discharge planning. Encouraged the patient to participate in milieu. likely discharge before outpatient ortho appointment on . Patient will likely be staying with his sister Dixie upon discharge. Will need to confirm date time and location of appointment for Hand surgeon appointment. If patient does well overnight then likely discharge early tomorrow morning.
[2020-04-11] MEDS ORDERED: DULoxetine HCL 30 MG CAPSULE.DR PO ONE (09:45)
[2020-04-11 13:16] LABS: Glucose,Whole Blood 125 mg/dL (75-99)
[2020-04-11 17:45] LABS: Glucose,Whole Blood 119 mg/dL (75-99)
[2020-04-11 20:17] LABS: Glucose,Whole Blood 148 mg/dL (75-99)
[2020-04-11] MEDS: MELATONIN 5 MG TABLET PO SCH (20:30)
--- NOTE | 2020-04-12 05:53 | P.PN ---
Subjective Progress Note Date: 04/12/20 (delayed charing seen on 04/11 at 1330) Principal diagnosis: wrist lacerations Patient is 64-year-old male for history of hypertension, depression, and right BKA who initially presented after a suicide attempt with bilateral wrist lacerations requiring multiple. He was initially treated on the medical floor and ultimately was transitioned to the mental health unit. Nursing has been providing daily dressing changes. They were to me that they're concerned about drainage from his wrist. Patient seen and examined in the intake room. Reports he is doing his range of motion exercises, he is having some pain in his right wrist but it is manageable. He denies noting any drainage. He reports that he did have an episode of being unbalanced due to his DKA when he was up and pivoting the other day. He pressed to the wall his right hand to avoid falling and 3 of his sutures popped and came out. Focused exam: Gen.: Alert, oriented, no acute distress, nontoxic, normal weight Wrists: Right wrist with sutures missing, good approximation of tissue, slight redness without warmth, no drainage noted. Area was cleaned and dried. 2 Steri-Strips were applied over the area of the sutures being removed. Good range of motion with supination and pronation of the arm, flexion and extension of the wrist, good approximation of all fingers, decreased sensation to third di git and fourth but intact sensation to remain her hand Left wrist: Sutures in place, nor warmth, some erythema, no drainage. Good range of motion with supination and pronation of the arm, flexion and extension of the wrist, good approximation of all fingers, sensation to hand/ fingers intact. 1. Bilateral wrist lacerations-continue with current plan of care, patient will follow-up with ortho hand on 04/17. He can have sutures removed at that point in time. We Steri-Strips in place. Patient may shower and do normal activities. Continue to monitor for signs of increased redness, warmth, or drainage. Continue pain control with Qulin. Antibiotic prophylaxis with Augmentin 2. Hypertension -Continue with Bumex, Lasix -Follow blood pressures Will follow as needed. Nursing to recontact us with changes Objective - Vital Signs Vital signs: Vital Signs Temp 98.6 F 04/11/20 06:40 Pulse 83 04/11/20 06:40 Resp 16 04/11/20 06:40 BP 90/53 04/11/20 06:40 Pulse Ox 92 L 04/10/20 17:15 - Labs CBC & Chem 7: 04/09/20 06:29 04/09/20 06:29 Labs: Abnormal Lab Results - Last 24 Hours (Table) 04/11/20 04/11/20 04/11/20 Range/Units 07:56 13:04 17:42 POC Glucose (mg/dL) 130 H 125 H 119 H (75-99) mg/dL 04/11/20 Range/Units 20:16 POC Glucose (mg/dL) 148 H (75-99) mg/dL
[2020-04-12] MEDS: HYDROcodone/APAP 5-325MG 1 EACH TAB PO PRN ×3 (07:31→21:06)
[2020-04-12 07:55] LABS: Glucose,Whole Blood 116 mg/dL (75-99)
[2020-04-12] MEDS ORDERED: DULoxetine HCL 30 MG CAPSULE.DR PO SCH (09:00)
[2020-04-12] MEDS: BUMETANIDE 1 MG TAB PO SCH ×2 (09:00→19:59)
[2020-04-12] MEDS: AMOXIC-POT CLAV 875-125MG 1 EACH TAB PO SCH ×2 (09:00→20:00)
[2020-04-12] MEDS: lisinopriL 10 MG TAB PO SCH (09:01)
--- NOTE | 2020-04-12 09:57 | P.PN ---
Progress Note - Text Progress Note Date: 04/12/20 Interval History: Patient was seen near the nurse's desk this morning and was directable and agr eeable to speak with medical technical writer in the office. Patient continues to be in a wheelchair today. Patient once again appeared to be more anxious today and continues to complain of difficulties with sleep. He states that he really wants to go home however feels that he does not feel safe. He claims that last night he was having severe cramping in his legs which made him feel restless and he claims that it migrated to his stomach and formed a "knot". He states that he only slept approximately 1-2 hours last night and is not feeling well this morning. He continues to endorse depression however was agreeable to have his Cymbalta increased. He states that he has been trying to go to groups and participate as best he can. He continues to claim that he is anxious about the next plan about where he will be living and going after being discharged. He states that his appetite has been improving. At this time patient denies any suicidal or homical ideations, intent or plan. Patient denies any auditory, visual hallucinations and denies any paranoia or delusions. Patient denies any side effects from the medications and has been compliant with meds. Mental Status Exam: General Appearance: Patient appears to be overweight, stated age is alert, directable, and attempts to be cooperative. Wearing street clothing. Patient is in a wheelchair. Behavior: Patient is calmly seated without any agitated behavior. Appears to be anxious today. Speech: Patient's speech is fluent and nonpressured. Soft tone of voice Mood/Affect: Mood is depressed today, affect is congruent and appears to be anxious at times. Suicidality/Homicidality: Patient denies having any suicidal or homicidal ideation intent or plan. Perceptions: Patient denies any visual hallucinations and denies any auditory hallucinations Though content/process: There is no evidence of any delusional thought content and thought process is linear and goal-directed. Focused on his symptoms. Memory and concentration: AOX3, grossly intact for the purposes of this session Judgment and insight: improving mildly Assessment Major depressive disorder, severe, without psychotic features Cannabis use disorder Plan: -Patient continues to meet criteria for inpatient psychiatric admission for symptom stabilization and safety. Patient has signed adult voluntary form and medication consent and was placed in patient's chart. -Medications: Increased Cymbalta 60 mg bid for mood/anxiety. Continue with melatonin 10 mg daily at bedtime for insomnia. Added Requip 0.25 mg daily at bedtime for restless leg symptoms. -When necessary Ativan and Haldol for agitation/aggression. -Patient was seen by orthopedics PA on the medical floors who claims that patient will need specialized hand surgery by Dr. Pollard however he does not have privileges at this hospital. She recommended patient follow up with Dr. Schmidt in the outpatient office. -NRT -not needed as patient does not smoke. -SW on board for discharge planning. Encouraged the patient to participate in milieu. Patient will likely be staying with his sister Dixie upon discharge. Patient has a hand surgeon appointment on 04/17/20. If patient does well overnight then likely discharge early tomorrow to sister's house.
[2020-04-12 12:47] LABS: Glucose,Whole Blood 113 mg/dL (75-99)
[2020-04-12 18:00] LABS: Glucose,Whole Blood 97 mg/dL (75-99)
[2020-04-12 18:21] LABS: HCT 31.1 % (39.0-53.0); HGB 10.5 gm/dL (13.0-17.5); MCH 32.2 pg (25.0-35.0); MCHC 33.7 g/dL (31.0-37.0); MCV 95.3 fL (80.0-100.0); Mean Platelet Volume 7.3; Platelet Count 380 k/uL (150-450); RBC 3.26 m/uL (4.30-5.90); RDW 14.1 % (11.5-15.5); WBC 9.1 k/uL (3.8-10.6)
[2020-04-12 18:30] LABS: Albumin 4.1 g/dL (3.5-5.0); Calcium 8.7 mg/dL (8.4-10.2); Total Bilirubin 0.4 mg/dL (0.2-1.3); Total Protein 6.7 g/dL (6.3-8.2)
[2020-04-12 19:55] LABS: Glucose,Whole Blood 110 mg/dL (75-99)
[2020-04-12] MEDS: MELATONIN 5 MG TABLET PO SCH (20:00)
[2020-04-13] MEDS: HYDROcodone/APAP 5-325MG 1 EACH TAB PO PRN ×3 (04:31→19:01)
[2020-04-13] MEDS: DULoxetine HCL 60 MG CAPSULE.DR PO SCH ×2 (08:14→21:34)
[2020-04-13] MEDS: BUMETANIDE 1 MG TAB PO SCH (08:15)
[2020-04-13] MEDS: lisinopriL 10 MG TAB PO SCH (08:15)
[2020-04-13] MEDS: ACETAMINOPHEN TAB 325 MG TAB PO PRN ×2 (08:15→15:51)
[2020-04-13] MEDS: AMOXIC-POT CLAV 875-125MG 1 EACH TAB PO SCH ×2 (08:15→21:34)
[2020-04-13 08:20] LABS: Glucose,Whole Blood 107 mg/dL (75-99)
[2020-04-13 10:27] LABS: Calcium 8.6 mg/dL (8.4-10.2); Potassium 4.1 mmol/L (3.5-5.1)
--- NOTE | 2020-04-13 12:50 | P.PN ---
Progress Note - Text Progress Note Date: 04/13/20 Interval History: Patient was seen near the nurse's desk this morning in his wheelchair and was directable and agreeable to speak with designer/writer in the office. Patient once again appeared to be more anxious today and states that he once again had difficulties with sleep last night. He continues to claim that he is feeling severe "cramps" in his leg that my grades up in the night and states that he tried to take an Ativan and put a heat pack on it however was not able to take away the cramps and had difficulties with sleep last night due to this. and continues to complain of difficulties with sleep. He again feels frustrated and upset related to this. He states that he only slept approximately 1-2 hours last night and is not feeling well this morning. He claims also that he has been urinating more frequently. He continues to endorse depression however this has been improving day by day. He states that he has been trying to go to groups and participate as best he can. He states that his appetite has been improving. At this time patient denies any suicidal or homical ideations, intent or plan. Patient denies any auditory, visual hallucinations and denies any paranoia or delusions. Patient denies any side effects from the medications and has been compliant with meds. Mental Status Exam: General Appearance: Patient appears to be overweight, stated age is alert, directable, and attempts to be cooperative. Wearing street clothing. Patient is in a wheelchair. Behavior: Patient is calmly seated without any agitated behavior. Appears to be anxious today. Speech: Patient's speech is fluent and nonpressured. Soft tone of voice Mood/Affect: Mood is depressed today, improving mildly, affect is congruent and appears to be anxious at times. Suicidality/Homicidality: Patient denies having any suicidal or homicidal ideation intent or plan. Perceptions: Patient denies any visual hallucinations and denies any auditory hallucinations Though content/process: There is no evidence of any delusional thought content and thought process is linear and goal-directed. Focused on his symptoms and his leg cramps. Memory and concentration: AOX3, grossly intact for the purposes of this session Judgment and insight: improving mildly Assessment Major depressive disorder, severe, without psychotic features Cannabis use disorder Plan: -Patient continues to meet criteria for inpatient psychiatric admission for symptom stabilization and safety. Patient has signed adult voluntary form and medication consent and was placed in patient's chart. -Medications: Continue Cymbalta 60 mg bid for mood/anxiety. Continue with melatonin 10 mg daily at bedtime for insomnia. Continue with Requip 0.25 mg daily at bedtime for restless leg symptoms. Leg cramps may be due to patient's diuretic Bumex, spoke with sound SLIVER LAPPER about other causes of leg cramps and recommendations. Will do a Doppler today on the legs to rule out any clots and we'll discontinue diuretic at this time. Ordered a repeat basic metabolic panel to check calcium, sodium, potassium and magnesium. -When necessary Ativan and Haldol for agitation/aggression. -Patient was seen by orthopedics PA on the medical floors who claims that patient will need specialized hand surgery by Dr. Pollard however he does not h ave privileges at this hospital. She recommended patient follow up with Dr. Schmidt in the outpatient office. -NRT -not needed as patient does not smoke. -SW on board for discharge planning. Encouraged the patient to participate in milieu. Patient will likely be staying with his sister Dixie upon discharge. Patient has a hand surgeon appointment on 04/17/20. If patient does well over the weekend and has improvement in his sleep and leg cramps then we'll look at discharge Thursday to sister's home.
[2020-04-13 12:59] LABS: Glucose,Whole Blood 115 mg/dL (75-99)
--- NOTE | 2020-04-13 13:30 | US ---
EXAMINATION TYPE: US venous doppler duplex LE LT DATE OF EXAM: 04/13/2020 12:29 PM COMPARISON: NONE CLINICAL HISTORY: Pain in LLE. SIDE PERFORMED: Left TECHNIQUE: The lower extremity deep venous system is examined utilizing real time linear array sonog nate with graded compression, doppler sonography and color-flow sonography. VESSELS IMAGED: Common Femoral Vein Deep Femoral Vein Greater Saphenous Vein * Femoral Vein Popliteal Vein Small Saphenous Vein * Proximal Calf Veins (* superficial vessels) Left Leg: Negative for DVT Fluid collection left pop fossa measures 6.7 x 3.2 x 3.3 cm. IMPRESSION: 1. Left lower extremity ultrasound negative for deep venous thrombosis. 2. Large left Popliteal cyst.
--- NOTE | 2020-04-13 14:30 | P.PN ---
<Familia Garcia - Last Filed: 04/13/20 13:44> Subjective Progress Note Date: 04/13/20 Hospital course: Patient is a 64-year-old male with a past medical history including hypertension, COPD, depression, and right BKA whom is currently admitted to mental health unit after a suicide attempt with lacerations to bilateral wrists requiring extensive suturing repair with need for follow-up with hand specialist for recommended surgery. I was notified by mental health unit staff that there were concerns as patient was complaining of significant pain in his left calf throughout the night. Patient was seen by Dr. Leal and his Bumex was discontinued. Labs were obtained with BMP, magnesium, and calcium all unremarkable with the exception of mild hyponatremia with sodium of 131. I was asked to assess the patient to evaluate leg cramping further. Upon arrival to pt's room he was resting in bed. He reported that he was having this pain described as a cramping, or julian horse and rated 6/10 upon assessment. Patient has full range of motion in left lower extremity and able to bear weight, but reports increased pain with movement. Plantarflexion and dorsiflexion intact. Negative increase pain with straight leg raises. Pt was tender upon palpation of his left calf extending all the way to his popliteal fossa. Sensation was intact and there was no redness or swelling noted. Order placed for LLE Venous Doppler at this time. Pt denied having any other complaint s at this time including headache, lightheadedness, dizziness, changes in vision or hearing, chest pain or palpitations, or experiencing any shortness of breath. Physical exam: General: non toxic, no distress, appears at stated age Derm: warm, dry, dressings in place to bilateral wrists clean and dry with no noted swelling Head: atraumatic, normocephalic, symmetric Eyes: no lid lag, anicteric sclera Mouth: no lip lesion, mucus membranes moist Cardiovascular: S1S2 reg, no murmur, positive posterior tibial pulse to left lower extremity. Patient has right BKA. Lungs: Respirations even, regular, and unlabored on room air. Patient did have diffuse soft expiratory rhonchi noted in bilateral upper lung nayak. No accessory muscle use. Abdominal: soft, nontender to palpation, no guarding, no appreciable orga nomegaly Ext: no gross muscle atrophy, no edema, no contractures. Right BKA Neuro: Speech clear, GCS 15. No focal neuro deficits. Psych: Alert, oriented, appropriate affect Assessment and Plan of Care: Martínez's (Popliteal) Cyst -Venous Doppler of left lower extremity negative for DVT, however revealing a large left popliteal cyst measuring 6.7 x 3.2 x 3.3 cm. -Recommend symptomatic care and pain management. Treatment includes rest (keeping off of leg as much as possible), ice, compression, and pain medication management with NSAIDs. Order placed for MARY hose to LLE for assistance with compression (as suicidal patient cannot have compression bandage/wrap) and Ibuprofen 600 mg every 8 hours as needed for [id number] pain. -Pain may last up to 4 weeks, if pain persists past 4 weeks recommend patient to follow up with PCP, as he may need referral for physical therapy and/or further evaluation by orthopedic specialists. Hypertension -Monitor vital signs and continue daily medication management with lisinopril. COPD -Ventolin inhaler as needed for shortness of breath and/or wheezing. Depression with suicidal attempt -Suicidal precautions -Management per primary admitting psychiatric team. Thank you for allowing us to participate in the care of this patient. We will f ollow this patient on an as needed basis, RN to contact us at any time with further questions or needs. Someone can be reached from the [facility] hospitalist group all hours of the day at [phone] or via [employer]. Objective - Vital Signs Vital signs: Vital Signs Temp 97.8 F 04/13/20 04:33 Pulse 77 04/13/20 08:17 Resp 18 04/13/20 04:33 BP 115/67 04/13/20 08:17 Pulse Ox 95 04/12/20 15:44 - Labs CBC & Chem 7: 04/12/20 17:39 04/13/20 09:48 Labs: Abnormal Lab Results - Last 24 Hours (Table) 04/12/20 04/12/20 04/12/20 Range/Units 12:43 17:39 17:39 RBC 3.26 L (4.30-5.90) m/uL Hgb 10.5 L (13.0-17.5) gm/dL Hct 31.1 L (39.0-53.0) % Sodium 130 L (137-145) mmol/L Chloride 85 L (98-107) mmol/L Carbon Dioxide 39 H (22-30) mmol/L BUN 28 H (9-20) mg/dL Glucose (74-99) mg/dL POC Glucose (mg/dL) 113 H (75-99) mg/dL ALT 345 H (4-49) U/L 04/12/20 04/13/20 04/13/20 Range/Units 19:53 08:08 09:48 RBC (4.30-5.90) m/uL Hgb (13.0-17.5) gm/dL Hct (39.0-53.0) % Sodium 131 L (137-145) mmol/L Chloride 86 L (98-107) mmol/L Carbon Dioxide 38 H (22-30) mmol/L BUN 26 H (9-20) mg/dL Glucose 100 H (74-99) mg/dL POC Glucose (mg/dL) 110 H 107 H (75-99) mg/dL ALT (4-49) U/L <Chrissy Blas - Last Filed: 04/13/20 16:44> Objective - Vital Signs Vital signs: Vital Signs Temp 97.1 F L 04/13/20 10:43 Pulse 77 04/13/20 08:17 Resp 18 04/13/20 04:33 BP 115/67 04/13/20 08:17 Pulse Ox 95 04/12/20 15:44 - Labs CBC & Chem 7: 04/12/20 17:39 04/13/20 09:48 Labs: Abnormal Lab Results - Last 24 Hours (Table) 04/12/20 04/12/20 04/12/20 Range/Units 17:39 17:39 19:53 RBC 3.26 L (4.30-5.90) m/uL Hgb 10.5 L (13.0-17.5) gm/dL Hct 31.1 L (39.0-53.0) % Sodium 130 L (137-145) mmol/L Chloride 85 L (98-107) mmol/L Carbon Dioxide 39 H (22-30) mmol/L BUN 28 H (9-20) mg/dL Glucose (74-99) mg/dL POC Glucose (mg/dL) 110 H (75-99) mg/dL ALT 345 H (4-49) U/L 04/13/20 04/13/20 04/13/20 Range/Units 08:08 09:48 12:55 RBC (4.30-5.90) m/uL Hgb (13.0-17.5) gm/dL Hct (39.0-53.0) % Sodium 131 L (137-145) mmol/L Chloride 86 L (98-107) mmol/L Carbon Dioxide 38 H (22-30) mmol/L BUN 26 H (9-20) mg/dL Glucose 100 H (74-99) mg/dL POC Glucose (mg/dL) 107 H 115 H (75-99) mg/dL ALT (4-49) U/L Assessment and Plan Assessment: I discussed the care with Familia Garcia NP and reviewed the findings and plan as documented in the note above. I did not staff this patient on this date.
[2020-04-13 17:56] LABS: Glucose,Whole Blood 160 mg/dL (75-99)
[2020-04-13] MEDS: IBUPROFEN 600 MG TAB PO PRN (19:55)
[2020-04-13 20:07] LABS: Glucose,Whole Blood 99 mg/dL (75-99)
[2020-04-13] MEDS: MELATONIN 5 MG TABLET PO SCH (21:34)
[2020-04-14] MEDS: HYDROcodone/APAP 5-325MG 1 EACH TAB PO PRN ×3 (07:17→20:59)
[2020-04-14 07:52] LABS: Glucose,Whole Blood 117 mg/dL (75-99)
[2020-04-14] MEDS: AMOXIC-POT CLAV 875-125MG 1 EACH TAB PO SCH ×2 (07:56→21:00)
[2020-04-14] MEDS: lisinopriL 10 MG TAB PO SCH (07:56)
[2020-04-14] MEDS: DULoxetine HCL 60 MG CAPSULE.DR PO SCH ×2 (07:56→21:00)
[2020-04-14 12:51] LABS: Glucose,Whole Blood 84 mg/dL (75-99)
--- NOTE | 2020-04-14 15:19 | P.PN ---
Progress Note - Text Progress Note Date: 04/14/20 Clinical Problems: Suicide attempt, major depressive disorder severe without psychotic features, cannabis use disorder Interim history: I reviewed the medical record and interviewed the patient. He is a 64-year-old male admitted to the psychiatric unit voluntarily after he had said that the suicide by cutting both his wrists. He reported an improvement in his mood and absence of suicidal thoughts, intent or plan. He talked about the overwhelming feelings of hopelessness and helplessness experienced prior to the suicide attempt. She was depression to multiple losses and the lack of social support imposed by the pandemic. He is beginning to attend therapeutic groups and activities. He slept 6 hours last night. Mental status exam: He presented as a casually groomed elderly male with bandages on both his wrists. He has a right BKA. He ambulates with the use of a wheelchair. He made eye contact and attended the interview. He had a blunted but bright facial expression. He showed no abnormality of psychomotor activity. His speech was spontaneous with normal rate and rhythm. His affect was anxious but appropriate. He denied suicidal ideation and wishes. He denied feeling hopeless, helpless or worthless. He ruminated about the circumstances about this hospitalization. He did not express ideas reference, paranoid ideation or delusions. His thinking was abstract and associations were coherent, logical and goal directed. He denied hallucinations and did not appear to responding to internal stimuli. Assessment: He appears moderately mentally ill much improved from admission. Plan: continue inpatient treatment. Safety precautions. Continue wound care as recommended by trial consultant. Continue Cymbalta 60 mg twice a day and melatonin 10 mg at bedtime. Continue Ventolin inhaler 4 times a day when necessary, Augmentin twice a day, hydrocodone every 6 hours when necessary for pain, Motrin 600 mg 3 times a day when necessary pertain Zestril 10 mg daily and Requip 0.25 mg at bedtime. Continue Ativan/Haldol when necessary for agitation, anxiety or acute psychosis. Encourage participation in therapeutic groups and activities. Evaluate clinical status response to treatment daily basis.
[2020-04-14 17:47] LABS: Glucose,Whole Blood 112 mg/dL (75-99)
[2020-04-14 20:12] LABS: Glucose,Whole Blood 128 mg/dL (75-99)
[2020-04-14] MEDS: MELATONIN 5 MG TABLET PO SCH (21:00)
[2020-04-15 07:51] LABS: Glucose,Whole Blood 107 mg/dL (75-99)
[2020-04-15] MEDS: HYDROcodone/APAP 5-325MG 1 EACH TAB PO PRN ×2 (07:58→20:06)
[2020-04-15] MEDS: lisinopriL 10 MG TAB PO SCH (08:00)
[2020-04-15] MEDS: AMOXIC-POT CLAV 875-125MG 1 EACH TAB PO SCH ×2 (08:00→20:06)
[2020-04-15] MEDS: DULoxetine HCL 60 MG CAPSULE.DR PO SCH ×2 (08:00→20:05)
[2020-04-15] MEDS: IBUPROFEN 600 MG TAB PO PRN (09:08)
[2020-04-15 12:28] LABS: Glucose,Whole Blood 116 mg/dL (75-99)
--- NOTE | 2020-04-15 15:20 | P.PN ---
Progress Note - Text Progress Note Date: 04/15/20 Clinical Problems: Suicide attempt, major depressive disorder severe without psychotic features, cannabis use disorder Interim history: I reviewed the medical record and interviewed the patient. He denied suicidal thoughts, intent or plan. He feels upbeat and is hopeful for discharge tomorrow. He plans to live with her sister temporarily after discharge. He is attending therapeutic groups and activities.. He slept 6 hours last night. Mental status exam: He presented as a casually groomed elderly male with bandages on both his wrists. He has a right BKA. He ambulates with the use of a wheelchair. He made eye contact and attended the interview. He had a blunted but bright facial expression. He showed no abnormality of psychomotor activity. His speech was spontaneous with normal rate and rhythm. His affect was blunted but appropriate He denied suicidal ideation and wishes. He denied feeling hopeless, helpless or worthless. He ruminated about the circumstances about this hospitalization. He did not express ideas reference, paranoid ideation or delusions. His thinking was abstract and associations were coherent, logical and goal directed. He denied hallucinations and did not appear to responding to internal stimuli. Assessment: He appears moderately mentally ill much improved from admission. Plan: cont inpatient treatment. Safety precautions. Continue wound care as recommended by brand sales consultant. Continue Cymbalta 60 mg twice a day and melatonin 10 mg at bedtime. Continue Ventolin inhaler 4 times a day when necessary, Augmentin twice a day, hydrocodone every 6 hours when necessary for pain, Motrin 600 mg 3 times a day when necessary pertain Zestril 10 mg daily and Requip 0.25 mg at bedtime. Continue Ativan/Haldol when necessary for agitation, anxiety or acute psychosis. Encourage participation in therapeutic groups and activities. Evaluate clinical status response to treatment daily basis.
[2020-04-15] MEDS: MELATONIN 5 MG TABLET PO SCH (20:05)
[2020-04-16 06:49] VITALS: RESP 16; TEMP 97.9
[2020-04-16] MEDS: lisinopriL 10 MG TAB PO SCH (08:40)
[2020-04-16] MEDS: DULoxetine HCL 60 MG CAPSULE.DR PO SCH (08:40)
[2020-04-16] MEDS: HYDROcodone/APAP 5-325MG 1 EACH TAB PO PRN ×2 (08:41→14:29)
--- NOTE | 2020-04-16 09:17 | P.DS ---
Providers Date of admission: 04/08/20 16:40 Expected date of discharge: 04/16/20 Attending physician: Goran Leal MD Consults: 04/08/20 16:51 Consult Physician Routine Consulting Provider: Camille Physician Consult Reason/Comments: medical management Do you want consulting provider notified?: Already Contacted Primary care physician: Stated None - Discharge Diagnosis(es) (1) Major depressive disorder without psychotic features Current Visit: Yes Status: Acute Priority: High (2) Cannabis abuse Current Visit: Yes Status: Acute Priority: Low Hospital Course: Admission HPI: Admission note was completed by freelance writer "Patient is a 64-year-old male who is , who currently lives alone, was admitted for suicidal ideation with an attempt by self-induced bilateral wrist lacerations. The patient presented to the hospital on 04/05/2020 and was brought in by EMS after he was found in the shower with his wrists cut open. As per EMS, was difficult to ass ess how much blood the patient has lost. The patient was subsequently admitted to the medical floor for further evaluation and treatment. Patient was having elevated liver enzymes on admission. Patient was seen by psychiatric consult liaison Dr. oshea. He expressed that he has been depressed for months and his depression becomes worse at night when he is alone by himself. The patient endorses significant symptoms of depression including low mood, feeling overwhelmed, hopelessness, helplessness, and suicidal ideation. Patient reports decreased appetite and difficulty sleeping. He states his energy has been low. He was reporting anhedonia. The patient states that he may be impulsive decision to cut his wrists in the shower using a coin box inspector. He then contacted his sister who notified EMS was is currently brought him to the emergency department. The patient also reports that he previously overdosed on Seroquel a few years ago in an attempt to take his own life. The patient states that he began expressing depression 2-3 years ago. The patient was seen by orthopedic PA for evaluation and recommended that patient follow-up with Dr. Schmidt veterinary milk specialist in the office on for potential surgery on Thursday. Patient was transferred to the mental health unit yesterday for evaluation and treatment. Patient claims that his mood has been gradually improving on the Cymbalta and was agreeable to have his dose increased. He states that he still dealing with sleep difficulties sleeping approximately 1-2 hours a night. He claims that he has guilt for doing what he has done to his wrist. He claims that his anxiety has been improving however continues to have some pain in his hands when he moves his fingers. He claims that he has been talking with his sister about the potential plan for discharge and that if he can stay with her upon release. He spoke up more about his stressors at home and states that it was "mainly because I was alone at night time and my mind was racing". He claims that he attributes a lot of his recent stressors to the pandemic and not being able to drive and feeling more isolated. the patient denies any significant history of auditory or visual hallucinations. He denies any paranoia or delusions. He denies any current thoughts of suicide intent or plan or any homicidal ideations intent or plan.Patient admits to using cannabis regularly." Hospital course: Upon admission to the unit patient was initially depressed and anxious. Patient was however directable and agreeable to commence treatment and signed adult volu ntary form. Patient got along well with other patients on the unit and followed unit protocol. Patient was compliant with the medications and denied any side effects throughout hospital course. Patient was started on Cymbalta and titrated up to dose of 60 mg twice a day for mood/anxiety. Patient was also started on melatonin and titrated up to dose of 10 mg daily at bedtime for insomnia. Patient was started on trazodone however due to restless legs symptoms and cramping this was discontinued. Patient was started on Requip 0.25 mg daily at bedtime for restless leg symptoms. Patient's Bumex diuretic was discontinued as this may have been contributing to restless leg symptoms and sound FLOATER OPERATOR recommended that patient have this discontinued and does not need diuretic at this time. Patient had a venous Doppler performed which found a Martínez's cyst on his left leg and was recommended to be treated symptomatically with NSAIDs and Tylenol and if the pain continues to worsen then patient should follow-up with his PCP. Patient did have sodium level which was low however patient was advised to cut back on his water consumption and also the diuretic was discontinued. Patient spoke of his stressors and engaged in therapy both group and individual. Patient was also seen by medical team for history and physical exam. Patient had sutures in place from his wounds on his wrist and arms and orthopedics PA is referring patient to follow-up at orthopedics outpatient with hand surgeon on 04/17/2020. Throughout the course of the hospitalization patient gradually improved with regards to mood, anxiety, sleep and became more future oriented with improved insight and judgment. On the day of discharge patient denied any suicidal or homicidal ideations intent or plan denied any auditory or visual hallucinations. Patient endorsed wanting to live for his kids and his health. The patient denied any access to guns or weapons. Patient denied any paranoia and did not endorse any delusions. Patient does have a significant history of substance abuse and was counseled on abstaining from all substances including alcohol and marijuana. Patient was also counseled on the medications and need for regular compliance and was encouraged to follow-up with their outpatient appointment for mental health and also for primary care. Prior to discharge a family meeting will be arranged by social wo rker to answer any questions and ensure safety upon discharge. Patient will be discharged to his sister's house as she will be able to drive him to his appointments and look after him. Mental status exam: General Appearance: Patient appears to be in a wheelchair, overweight, stated age is alert, pleasant, and cooperative. Patient is in no acute distress and has improved hygiene and grooming Behavior: Patient is calmly seated without any agitated behavior. Speech: Patient's speech is fluent and nonpressured. Mood/Affect: Patient reports their mood is "better", affect is congruent and euthymic. Suicidality/Homicidality: Patient denies having any suicidal or homicidal ideation intent or plan. Perceptions: Patient denies any auditory or visual hallucinations. Though content/process: There is no evidence of any delusional thought content and thought process is linear and goal-directed. more future oriented Memory and concentration: AOX3, grossly intact for the purposes of this session. Can spell "WORLD" backwards correctly. Judgment and insight: improved with guarded prognosis Impression: Major depressive disorder, severe, without psychotic features Cannabis use disorder Plan: -Continue with discharge today as patient has improved and stabilized psychiatrically and is not currently an imminent threat to himself and/or others. Patient will remain at chronically elevated risk for harm to self and/or others due to his impulsivity and history of a severe suicide attempt. -Continue medications: Continue with Cymbalta 60 mg twice a day for mood/anxiety, melatonin 10 mg daily at bedtime for insomnia, Requip 0.25 mg daily at bedtime for restless leg symptoms. -Patient was counseled on the need for medication compliance and appropriate follow-up at mental health and also primary care for medical issues. Patient verbalized understanding and agreed. -Social work to arrange for and conduct family meeting to ensure safety upon discharge and answer any questions/concerns. Social work also to arrange for patients follow up appointments for psychiatric care along with follow up with primary care provider regarding his Martínez's cyst and leg cramps. Patient was advised to cut back on his pre-water consumption due to his lower sodium levels and continue holding off with the diuretic. -Patient has [facility] to discuss and evaluate his need for potential surgery on his wrists which was recommended by orthopedics PA. Appointment is set for 04/17/2020. -Patient counseled on abstaining from recreational drugs and marijuana and alcohol. Was informed/educated on the adverse effects on their physical and mental health. Patient verbally agreed and understood. -Patient was instructed to return to the hospital or seek immediate medical care if their psychiatric or medical symptoms do worsen or reoccur. Allergies Allergy/AdvReac Type Severity Reaction Status Date / Time codeine Allergy Rash/Hives Verified 04/10/20 10:24 Laboratory Results WBC 9.1 k/uL (3.8-10.6) 04/12/20 17:39 RBC 3.26 m/uL (4.30-5.90) L 04/12/20 17:39 Hgb 10.5 gm/dL (13.0-17.5) L 04/12/20 17:39 Hct 31.1 % (39.0-53.0) L 04/12/20 17:39 MCV 95.3 fL (80.0-100.0) 04/12/20 17:39 MCH 32.2 pg (25.0-35.0) 04/12/20 17:39 MCHC 33.7 g/dL (31.0-37.0) 04/12/20 17:39 RDW 14.1 % (11.5-15.5) 04/12/20 17:39 Plt Count 380 k/uL (150-450) 04/12/20 17:39 MPV 7.3 04/12/20 17:39 Neutrophils % 66 % 04/09/20 06:29 Lymphocytes % 24 % 04/09/20 06:29 Monocytes % 7 % 04/09/20 06:29 Eosinophils % 2 % 04/09/20 06:29 Basophils % 0 % 04/09/20 06:29 Neutrophils # 7.6 k/uL (1.3-7.7) 04/09/20 06:29 Lymphocytes # 2.7 k/uL (1.0-4.8) 04/09/20 06:29 Monocytes # 0.8 k/uL (0-1.0) 04/09/20 06:29 Eosinophils # 0.2 k/uL (0-0.7) 04/09/20 06:29 Basophils # 0.1 k/uL (0-0.2) 04/09/20 06:29 Sodium 131 mmol/L (137-145) L 04/13/20 09:48 Potassium 4.1 mmol/L (3.5-5.1) 04/13/20 09:48 Chloride 86 mmol/L (98-107) L 04/13/20 09:48 Carbon Dioxide 38 mmol/L (22-30) H 04/13/20 09:48 Anion Gap 7 mmol/L 04/13/20 09:48 BUN 26 mg/dL (9-20) H 04/13/20 09:48 Creatinine 1.05 mg/dL (0.66-1.25) 04/13/20 09:48 Est GFR (CKD-EPI)AfAm 88 (>60 ml/min/1.73 sqM) 04/13/20 09:48 Est GFR (CKD-EPI)NonAf 76 (>60 ml/min/1.73 sqM) 04/13/20 09:48 Glucose 100 mg/dL (74-99) H 04/13/20 09:48 POC Glucose (mg/dL) 116 mg/dL (75-99) H 04/15/20 12:24 POC Glu Clerical Methods Analyst ID Ngozi Gerard 04/15/20 12:24 Calcium 8.6 mg/dL (8.4-10.2) 04/13/20 09:48 Magnesium 1.8 mg/dL (1.6-2.3) 04/13/20 09:48 Total Bilirubin 0.4 mg/dL (0.2-1.3) 04/12/20 17:39 AST 49 U/L (17-59) 04/12/20 17:39 ALT 345 U/L (4-49) H 04/12/20 17:39 Alkaline Phosphatase 65 U/L (38-126) 04/12/20 17:39 Total Protein 6.7 g/dL (6.3-8.2) 04/12/20 17:39 Albumin 4.1 g/dL (3.5-5.0) 04/12/20 17:39 Triglycerides 134 mg/dL (<150) 04/09/20 06:29 Cholesterol 166 mg/dL (<200) 04/09/20 06:29 LDL Cholesterol, Calc 97 mg/dL (0-99) 04/09/20 06:29 HDL Cholesterol 42 mg/dL (40-60) 04/09/20 06:29 Vital Signs Temp 97.9 F 04/16/20 06:48 Pulse 70 04/16/20 08:42 Resp 16 04/16/20 06:48 BP 116/73 04/16/20 08:42 Pulse Ox 95 04/12/20 15:44 Intake & Output 04/15/20 04/16/20 04/16/20 18:59 06:59 18:59 Weight 108.7 kg Patient Condition at Discharge: Stable Plan - Discharge Summary Discharge Rx Participant: No New Discharge Prescriptions: New DULoxetine HCL [Cymbalta] 60 mg PO BID 30 Days capsule. Melatonin 10 mg PO HS 30 Days tablet Ibuprofen [Motrin] 600 mg PO TID PRN 30 Days tab PRN Reason: Mild To Moderate Pain rOPINIRole HCL [Requip] 0.25 mg PO HS 30 Days tab Albuterol Inhaler [Ventolin Hfa Inhaler] 1 puff INHALATION RT-QID PRN #1 puff PRN Reason: Shortness Of Breath Or Wheezing lisinopriL [Zestril] 10 mg PO DAILY 30 Days tab Continue HYDROcodone/APAP 5-325MG [[place] 5-325] 1 each PO Q6HR PRN 3 Days #12 tab PRN Reason: Pain Discontinued Lisinopril [Zestril] 10 mg PO DAILY Bumetanide 2 mg PO BID DULoxetine HCL [Cymbalta] 30 mg PO DAILY capsule. Melatonin 5 mg PO HS PRN tablet PRN Reason: Insomnia Acetaminophen Tab [Tylenol] 650 mg PO Q6HR PRN #0 tab PRN Reason: Fever and/ or Mild Pain Amoxicillin/Potassium Clav [Augmentin 875-125 Tablet] 1 tab PO BID 5 Days #10 tab Discharge Medication List Albuterol Inhaler [Ventolin Hfa Inhaler] 1 puff INHALATION RT-QID PRN #1 puff 04/16/20 [Rx] DULoxetine HCL [Cymbalta] 60 mg PO BID 30 Days capsule. 04/16/20 [Rx] HYDROcodone/APAP 5-325MG [[place] 5-325] 1 each PO Q6HR PRN 3 Days #12 tab 04/16/20 [Rx] Ibuprofen [Motrin] 600 mg PO TID PRN 30 Days tab 04/16/20 [Rx] Melatonin 10 mg PO HS 30 Days tablet 04/16/20 [Rx] lisinopriL [Zestril] 10 mg PO DAILY 30 Days tab 04/16/20 [Rx] rOPINIRole HCL [Requip] 0.25 mg PO HS 30 Days tab 04/16/20 [Rx] Follow up Appointment(s)/Referral(s): Abhijeet [address] [Other] - 04/17/20 (Appointment on April 17 at 9:30. Please arrive at 9 am and bring ID and insurance cards. Please wear a mask.) Activity/Diet/Wound Care/Special Instructions: Activity and diet as tolerated. Avoid the use of street drugs and alcohol. Take all medications as prescribed. When you are in need of refills on your medications please contact your medical provider and/or outpatient psychiatrist to have this done. Please go to scheduled outpatient appointment for aftercare treatment. If symptoms return or become worse, call the crisis line at and/or go to the nearest emergency room for evaluation. Discharge Disposition: HOME SELF-CARE
[2020-04-16 15:11] VITALS: BP 113/65; PULSE 87
== END 2020-04-16 16:38 | disposition home or self-care (01) | DRG 885 ==
LOC: 3MHU 16:40
PROVIDERS: ADMIT Psychiatry & Neurology Psychiatry; ATTEND Psychiatry & Neurology Psychiatry
DX: F32.2 Major depressive disorder, single episode, severe without psychotic features (principal); E11.10 Type 2 diabetes mellitus with ketoacidosis without coma; R57.8 Other shock; D62 Acute posthemorrhagic anemia; E87.1 Hypo-osmolality and hyponatremia; S61.511A Laceration without foreign body of right wrist, initial encounter; S61.512A Laceration without foreign body of left wrist, initial encounter; X78.9XXA Intentional self-harm by unspecified sharp object, initial encounter; M71.20 Synovial cyst of popliteal space [Baker], unspecified knee; J44.9 Chronic obstructive pulmonary disease, unspecified; I10 Essential (primary) hypertension; G47.00 Insomnia, unspecified; G25.81 Restless legs syndrome; G89.29 Other chronic pain; M54.5 Low back pain; F12.10 Cannabis abuse, uncomplicated; R74.01 Elevation of levels of liver transaminase levels; F41.9 Anxiety disorder, unspecified; K83.8 Other specified diseases of biliary tract; Z79.899 Other long term (current) drug therapy; Z89.511 Acquired absence of right leg below knee; Z91.5 Personal history of self-harm; Z88.5 Allergy status to narcotic agent
CPT/HCPCS: 80048; 80053; 80061; 83735; 85025; 85027; 94640

== ENCOUNTER → 2020-04-18 | Outpatient (CLI) | payer MEDICARE, OTHER | END | disposition home or self-care (01) | LOC: LABWHC1 15:49 | PROVIDERS: ATTEND Surgery Surgery of the Hand | DX: Z01.812 Encounter for preprocedural laboratory examination (principal); Z20.822 Contact with and (suspected) exposure to COVID-19; S61.512A Laceration without foreign body of left wrist, initial encounter; S61.511A Laceration without foreign body of right wrist, initial encounter; S64.11XA Injury of median nerve at wrist and hand level of right arm, initial encounter; S65.111A Laceration of radial artery at wrist and hand level of right arm, initial encounter; S66.821A Laceration of other specified muscles, fascia and tendons at wrist and hand level, right hand, initial encounter; X58.XXXA Exposure to other specified factors, initial encounter | CPT/HCPCS: U0003; U0005 ==

== ENCOUNTER 2022-08-16 10:21 | Inpatient (IN) | payer MEDICARE, OTHER ==
[2022-08-16] MEDS ORDERED: IBUPROFEN 600 MG TAB PO STA (10:32)
[2022-08-16] MEDS ORDERED: SODIUM CHLORIDE 0.9% 1,000 ML IV ONE (10:32)
[2022-08-16] MEDS ORDERED: ONDANSETRON 4 MG/2 ML VIAL IVP STA (10:32)
[2022-08-16] MEDS ORDERED: ACETAMINOPHEN TAB 500 MG TAB PO STA (10:32)
[2022-08-16] MEDS ORDERED: HYDROmorphone 0.5 MG/0.5 ML SYRINGE IVP STA ×2 (10:32→11:44)
[2022-08-16] MEDS ORDERED: SODIUM CHLORIDE 0.9% 500 ML 500 ML IV ONE (10:32)
[2022-08-16 10:34] VITALS: TEMP 102.2
--- NOTE | 2022-08-16 10:38 | ED ---
General Adult HPI - General Chief complaint: Abdominal Pain Stated complaint: abd pain Time Seen by Provider: 08/16/22 10:25 Source: patient, RN notes reviewed, old records reviewed Mode of arrival: EMS Limitations: no limitations - History of Present Illness Initial comments: This is a 66-year-old male who presents emergency Department patient states been having nausea vomiting diarrhea and abdominal pain 3 days. Patient states the pain is worse in the left lower quadrant but it hurts diffusely. Patient is unaware that he has a fever but he does have 102 fever on arrival. Patient denies chest pain difficulty breathing or shortness of breath. Patient denies any back pain. Patient states he is a smoker. Patient denies any leg swelling or calf tenderness. - Related Data Home Medications Medication Instructions Recorded Confirmed No Known Home Medications 08/16/22 08/16/22 Allergies Allergy/AdvReac Type Severity Reaction Status Date / Time codeine Allergy Rash/Hives Verified 08/16/22 12:20 Review of Systems ROS Statement: Those systems with pertinent positive or pertinent negative responses have been documented in the HPI. ROS Other: All systems not noted in ROS Statement are negative. Past Medical History Past Medical History: Asthma, Diabetes Mellitus, Hypertension, Respiratory Disorder Additional Past Medical History / Comment(s): borderline hypertension, borderline diabetes; empysema, asthma, chronic low back pain and knee pain History of Any Multi-Drug Resistant Organisms: MRSA Date of last positivie culture/infection: 1997 MDRO Source:: right leg Past Surgical History: Back Surgery, Orthopedic Surgery, Tonsillectomy Additional Past Surgical History / Comment(s): Bone grafts to right leg, right below the knee amputation, larynx surgery, left knee athroscopies, multiple falls Past Anesthesia/Blood Transfusion Reactions: No Reported Reaction Past Psychological History: Anxiety, Depression Smoking Status: Former smoker General Exam - General Exam Comments Initial Comments: GENERAL: Patient is well-developed and well-nourished. Patient is nontoxic and well- hydrated and is in moderate distress. ENT: Neck is soft and supple. No significant lymphadenopathy is noted. Oropharynx is clear. Moist mucous membranes. Neck has full range of motion without eliciting any pain. EYES: The sclera were anicteric and conjunctiva were pink and moist. Extraocular movements were intact and pupils were equal round and reactive to light. Eyeli ds were unremarkable. PULMONARY: Unlabored respirations. Good breath sounds bilaterally. No audible rales rhonchi or wheezing was noted. CARDIOVASCULAR: There is a regular rate and rhythm without any murmurs gallops or rubs. ABDOMEN: Patient is tender diffusely throughout the abdomen patient has rebound tenderness in the left lower quadrant SKIN: Skin is clear with no lesions or rashes and otherwise unremarkable. NEUROLOGIC: Patient is alert and oriented x3. Cranial nerves II through XII are grossly intact. Motor and sensory are also intact. Normal speech, volume and content. Symmetrical smile. MUSCULOSKELETAL: Patient has a BKA on the right otherwise all 4 extremities have full range of motion. LYMPHATICS: No significant lymphadenopathy is noted PSYCHIATRIC: Normal psychiatric evaluation. Limitations: no limitations Course Vital Signs 08/16/22 08/16/22 08/16/22 10:22 10:29 10:35 Temperature 102.2 F H Pulse Rate 117 H Respiratory 18 Rate Blood Pressure 131/85 O2 Sat by Pulse 72 L 85 L 85 L Oximetry Fraction of Inspired Oxygen (FIO2) 08/16/22 08/16/22 08/16/22 10:36 10:37 10:40 Temperature Pulse Rate 114 H 113 H Respiratory 18 10 L Rate Blood Pressure 131/85 131/85 O2 Sat by Pulse 93 L 94 L 97 Oximetry Fraction of Inspired Oxygen (FIO2) 08/16/22 08/16/22 08/16/22 11:00 11:20 11:40 Temperature Pulse Rate 120 H 123 H Respiratory 36 H 28 H 34 H Rate Blood Pressure 131/85 135/101 129/102 O2 Sat by Pulse 94 L 93 L Oximetry Fraction of Inspired Oxygen (FIO2) 08/16/22 08/16/22 08/16/22 11:53 12:00 12:14 Temperature Pulse Rate 118 H 118 H Respiratory 32 H 30 H Rate Blood Pressure 127/81 127/81 170/83 O2 Sat by Pulse 90 L 94 L Oximetry Fraction of Inspired Oxygen (FIO2) 08/16/22 08/16/22 08/16/22 12:20 12:40 12:58 Temperature Pulse Rate 117 H 112 H 116 H Respiratory 16 11 L 20 Rate Blood Pressure 119/81 120/93 113/86 O2 Sat by Pulse 94 L 95 Oximetry Fraction of Inspired Oxygen (FIO2) 08/16/22 08/16/22 08/16/22 14:30 14:40 14:44 Temperature Pulse Rate 103 H Respiratory 16 Rate Blood Pressure O2 Sat by Pulse 99 Oximetry Fraction of 100 100 Inspired Oxygen (FIO2) 08/16/22 08/16/22 15:00 15:20 Temperature Pulse Rate 107 H 108 H Respiratory 16 16 Rate Blood Pressure O2 Sat by Pulse 98 98 Oximetry Fraction of Inspired Oxygen (FIO2) Medical Decision Making - Medical Decision Making EKG was interpreted by myself shows a sinus tachycardia at 118 bpm VT interval 229 QRS is under QT intervals 295 QTC is 365. Second EKG was done because of the elevated troponin EKG was interpreted by myself shows sinus tachycardia at 119 beats a minute VT interval is 142 QRS is 86 QT interval is 284 QTC is 355 Was pt. sent in by a medical professional or institution (, PA, CLOUD SYSTEMS ADMINISTRATOR, urgent care, hospital, or retirement...) When possible be specific @ -No Did you speak to anyone other than the patient for history (EMS, parent, family, police, friend...)? What history was obtained from this source @ -No Did you review nursing and triage notes (agree or disagree)? Why? @ -I reviewed and agree with nursing and triage notes Were old charts reviewed (outside hosp., previous admission, EMS record, old EKG, old radiological studies, urgent care reports/EKG's, retirement records)? Report findings @ -No old charts were reviewed Differential Diagnosis (chest pain, altered mental status, abdominal pain women, abdominal pain men, vaginal bleeding, weakness, fever, dyspnea, syncope, headache, dizziness, GI bleed, back pain, seizure, CVA, palpatations, mental health, musculoskeletal)? @ -Differential Abdominal Pain Men: Appendicitis, cholecystitis, diverticulosis, ischemic bowel, pancreatitis, hepatitis, UTI, gastroenteritis, AAA, incarcerated hernia, bowel obstruction, constipation, inflammatory bowel, hepatitis, peptic ulcer disease, splenic infarction, perforated viscus, testicular torsion, this is not meant to be an a ll-inclusive list EKG interpreted by me (3pts min.). @ -As above X-rays interpreted by me (1pt min.). @ -Chest x-ray shows a small pleural effusion CT interpreted by me (1pt min.). @ -CT scan of the abdomen shows venous portal air shows a small bowel obstruction with transition point and shows pneumatosis of the small bowel. U/S interpreted by me (1pt. min.). @ -None done What testing was considered but not performed or refused? (CT, X-rays, U/S, labs)? Why? @ -None What meds were considered but not given or refused? Why? @ -None Did you discuss the management of the patient with other professionals (professionals i.e. , PA, CLOUD SYSTEMS ADMINISTRATOR, lab, RT, psych nurse, social welfare research worker, toxicology teacher, teacher, canine enforcement officer, case worker)? Give summary @ -Once the CAT scan came back I spoke with Dr. Gonzales she can move his see the patient in the emergency department and wanted to get patient to the OR. I also spoke with Dr. Anne He came over and saw the patient in the emergency department and he did not believe that this point time he was going to intervene emergently surgery scheduled for his abdomen. Was smoking cessation discussed for >3mins.? @ -No Was critical care preformed (if so, how long)? @ -45 minutes Were there social determinants of health that impacted care today? How? (Homelessness, low income, unemployed, alcoholism, drug addiction, transportation, low edu. Level, literacy, decrease access to med. care, senior living, rehab)? @ -No Was there de-escalation of care discussed even if they declined (Discuss DNR or withdrawal of care, Hospice)? DNR status @ -No What co-morbidities impacted this encounter? (DM, HTN, Smoking, COPD, CAD, Cancer, CVA, ARF, Chemo, Hep., AIDS, mental health diagnosis, sleep apnea, morbid obesity)? @ -None Was patient admitted / discharged? Hospital course, mention meds given and route, prescriptions, significant lab abnormalities, going to OR and other pertinent info. @ -Patient came in with abdominal pain and patient had a CT which showed possible ischemic bowel and a small bowel obstruction. An NG tube was placed which showed coffee ground emesis. Dr. Hercules and Dr. Medina both contacted became down and saw the patient in the emergency department. Dr. Chacko accepted the patient to the OR emergently. Patient was also descending so CT of the chest was done even though if the patient a PE no blood thinners could be given because of the coffee-ground emesis and emergency surgery. Patient's troponin also came back elevated and I asked the patient give any chest pain last few days he said 2 or 3 days ago he had some chest pain. Undiagnosed new problem with uncertain prognosis? @ -No Drug Therapy requiring intensive monitoring for toxicity (Heparin, Nitro, Insulin, Cardizem)? @ -No Were any procedures done? @ -No Diagnosis/symptom? @ -Small bowel obstruction Acute, or Chronic, or Acute on Chronic? @ -Acute Uncomplicated (without systemic symptoms) or Complicated (systemic symptoms)? @ -Complicated Side effects of treatment? @ -No Exacerbation, Progression, or Severe Exacerbation? @ -No Poses a threat to life or bodily function? How? (Chest pain, [place], [place], pneumonia, PE, COPD, DKA, ARF, appy, cholecystitis, CVA, Diverticulitis, Homicidal, Suicidal, threat to staff... and all critical care pts) @ -Yes Diagnosis/symptom? @ -Ischemic bowel Acute, or Chronic, or Acute on Chronic? @ -Acute Uncomplicated (without systemic symptoms) or Complicated (systemic symptoms)? @ -Complicated Side effects of treatment? @ -none Exacerbation, Progression, or Severe Exacerbation] @ -no Poses a threat to life or bodily function? @ -Yes this could lead to sepsis and Diagnosis/symptom? @ -Hypoxia Acute, or Chronic, or Acute on Chronic? @ -Acute Uncomplicated (without systemic symptoms) or Complicated (systemic symptoms)? @ -Complicated Side effects of treatment? @ -none Exacerbation, Progression, or Severe Exacerbation] @ -no Poses a threat to life or bodily function? @ -Yes this could lead to further hypoxia and end organ dysfunction Diagnosis/symptom? @ -Elevated troponin Acute, or Chronic, or Acute on Chronic? @ -Acute Uncomplicated (without systemic symptoms) or Complicated (systemic symptoms)? @ -Complicated Side effects of treatment? @ -none Exacerbation, Progression, or Severe Exacerbation] @ -no Poses a threat to life or bodily function? @ -no - Lab Data Result diagrams: 08/16/22 10:36 08/16/22 10:36 Lab Results 08/16/22 08/16/22 08/16/22 Range/Units 10:36 10:36 10:36 WBC 17.7 H (3.8-10.6) k/uL RBC 6.73 H (4.30-5.90) m/uL Hgb 17.3 (13.0-17.5) gm/dL Hct 58.0 H* (39.0-53.0) % MCV 86.2 (80.0-100.0) fL MCH 25.7 (25.0-35.0) pg MCHC 29.8 L (31.0-37.0) g/dL RDW 17.9 H (11.5-15.5) % Plt Count 180 (150-450) k/uL MPV 9.9 Neutrophils % 86 % Lymphocytes % 3 % Monocytes % 10 % Eosinophils % 0 % Basophils % 0 % Neutrophils # 15.3 H (1.3-7.7) k/uL Lymphocytes # 0.5 L (1.0-4.8) k/uL Monocytes # 1.7 H (0-1.0) k/uL Eosinophils # 0.0 (0-0.7) k/uL Basophils # 0.0 (0-0.2) k/uL Hypochromasia Marked Poikilocytosis Slight Anisocytosis Slight PT (9.0-12.0) sec INR (<1.2) APTT (22.0-30.0) sec VBG pH (7.31-7.41) VBG pCO2 (37-51) mmHg VBG HCO3 (24-28) mmol/L Sodium 136 L (137-145) mmol/L Potassium 4.3 (3.5-5.1) mmol/L Chloride 92 L (98-107) mmol/L Carbon Dioxide 38 H (22-30) mmol/L Anion Gap 6 mmol/L BUN 19 (9-20) mg/dL Creatinine 0.57 L (0.66-1.25) mg/dL Est GFR (CKD-EPI)AfAm >90 (>60 ml/min/1.73 sqM) Est GFR (CKD-EPI)NonAf >90 (>60 ml/min/1.73 sqM) Glucose 130 H (74-99) mg/dL Lactic Ac Sepsis Rflx Plasma Lactic Acid Edwardo 3.1 H* (0.7-2.0) mmol/L Calcium 8.4 (8.4-10.2) mg/dL Total Bilirubin 1.9 H (0.2-1.3) mg/dL AST 58 (17-59) U/L ALT 32 (4-49) U/L Alkaline Phosphatase 81 (38-126) U/L Troponin I (0.000-0.034) ng/mL Total Protein 7.1 (6.3-8.2) g/dL Albumin 3.7 (3.5-5.0) g/dL Amylase 41 (30-110) U/L Lipase 47 (23-300) U/L Blood Type Blood Type Recheck Bld Type Recheck Status Antibody Screen Spec Expiration Date 08/16/22 08/16/22 08/16/22 Range/Units 10:36 10:36 11:21 WBC (3.8-10.6) k/uL RBC (4.30-5.90) m/uL Hgb (13.0-17.5) gm/dL Hct (39.0-53.0) % MCV (80.0-100.0) fL MCH (25.0-35.0) pg MCHC (31.0-37.0) g/dL RDW (11.5-15.5) % Plt Count (150-450) k/uL MPV Neutrophils % % Lymphocytes % % Monocytes % % Eosinophils % % Basophils % % Neutrophils # (1.3-7.7) k/uL Lymphocytes # (1.0-4.8) k/uL Monocytes # (0-1.0) k/uL Eosinophils # (0-0.7) k/uL Basophils # (0-0.2) k/uL Hypochromasia Poikilocytosis Anisocytosis PT (9.0-12.0) sec INR (<1.2) APTT (22.0-30.0) sec VBG pH 7.41 (7.31-7.41) VBG pCO2 59 H (37-51) mmHg VBG HCO3 38 H (24-28) mmol/L Sodium (137-145) mmol/L Potassium (3.5-5.1) mmol/L Chloride (98-107) mmol/L Carbon Dioxide (22-30) mmol/L Anion Gap mmol/L BUN (9-20) mg/dL Creatinine (0.66-1.25) mg/dL Est GFR (CKD-EPI)AfAm (>60 ml/min/1.73 sqM) Est GFR (CKD-EPI)NonAf (>60 ml/min/1.73 sqM) Glucose (74-99) mg/dL Lactic Ac Sepsis Rflx Y Plasma Lactic Acid Edwardo (0.7-2.0) mmol/L Calcium (8.4-10.2) mg/dL Total Bilirubin (0.2-1.3) mg/dL AST (17-59) U/L ALT (4-49) U/L Alkaline Phosphatase (38-126) U/L Troponin I 0.699 H* (0.000-0.034) ng/mL Total Protein (6.3-8.2) g/dL Albumin (3.5-5.0) g/dL Amylase (30-110) U/L Lipase (23-300) U/L Blood Type Blood Type Recheck Bld Type Recheck Status Antibody Screen Spec Expiration Date 08/16/22 08/16/22 Range/Units 12:03 12:15 WBC (3.8-10.6) k/uL RBC (4.30-5.90) m/uL Hgb (13.0-17.5) gm/dL Hct (39.0-53.0) % MCV (80.0-100.0) fL MCH (25.0-35.0) pg MCHC (31.0-37.0) g/dL RDW (11.5-15.5) % Plt Count (150-450) k/uL MPV Neutrophils % % Lymphocytes % % Monocytes % % Eosinophils % % Basophils % % Neutrophils # (1.3-7.7) k/uL Lymphocytes # (1.0-4.8) k/uL Monocytes # (0-1.0) k/uL Eosinophils # (0-0.7) k/uL Basophils # (0-0.2) k/uL Hypochromasia Poikilocytosis Anisocytosis PT 13.4 H (9.0-12.0) sec INR 1.3 H (<1.2) APTT 30.2 H (22.0-30.0) sec VBG pH (7.31-7.41) VBG pCO2 (37-51) mmHg VBG HCO3 (24-28) mmol/L Sodium (137-145) mmol/L Potassium (3.5-5.1) mmol/L Chloride (98-107) mmol/L Carbon Dioxide (22-30) mmol/L Anion Gap mmol/L BUN (9-20) mg/dL Creatinine (0.66-1.25) mg/dL Est GFR (CKD-EPI)AfAm (>60 ml/min/1.73 sqM) Est GFR (CKD-EPI)NonAf (>60 ml/min/1.73 sqM) Glucose (74-99) mg/dL Lactic Ac Sepsis Rflx Plasma Lactic Acid Edwardo (0.7-2.0) mmol/L Calcium (8.4-10.2) mg/dL Total Bilirubin (0.2-1.3) mg/dL AST (17-59) U/L ALT (4-49) U/L Alkaline Phosphatase (38-126) U/L Troponin I (0.000-0.034) ng/mL Total Protein (6.3-8.2) g/dL Albumin (3.5-5.0) g/dL Amylase (30-110) U/L Lipase (23-300) U/L Blood Type A Positive Blood Type Recheck A Pos Bld Type Recheck Status No Antibody Screen NEGATIVE Spec Expiration Date 08/19/2022 - 2302 Critical Care Time Critical Care Time: Yes Total Critical Care Time: 45 Disposition Clinical Impression: Ischemic necrosis of small bowel Disposition: ADMITTED IP TO THIS HOSP
[2022-08-16 10:51] LABS: Anisocytosis Slight; Basophils % (A) 0 %; Eosinophils % (A) 0 %; HGB 17.3 gm/dL (13.0-17.5); Hypochromasia Marked; Lymphocytes # (A) 0.5 k/uL (1.0-4.8); Lymphocytes % (A) 3 %; MCH 25.7 pg (25.0-35.0); MCHC 29.8 g/dL (31.0-37.0); MCV 86.2 fL (80.0-100.0); Mean Platelet Volume 9.9; Monocytes # (A) 1.7 k/uL (0-1.0); Monocytes % (A) 10 %; Neutrophils # (A) 15.3 k/uL (1.3-7.7); Neutrophils % (A) 86 %; Platelet Count 180 k/uL (150-450); Poikilocytosis Slight; RBC 6.73 m/uL (4.30-5.90); RDW 17.9 % (11.5-15.5); WBC 17.7 k/uL (3.8-10.6)
[2022-08-16] MEDS ORDERED: PIPERACILLIN-TAZOBACTAM 3.375 GM in SODIUM CHLORIDE 0.9% 100 ML IVPB STA (10:58)
[2022-08-16 11:01] LABS: ALT 32 U/L (4-49); AST 58 U/L (17-59); African American GFR (CKD) >90 (>60 ml/min/1.73 sqM); Albumin 3.7 g/dL (3.5-5.0); Alkaline Phosphatase 81 U/L (38-126); Amylase 41 U/L (30-110); Anion Gap 6 mmol/L; Blood Urea Nitrogen 19 mg/dL (9-20); Calcium 8.4 mg/dL (8.4-10.2); Carbon Dioxide 38 mmol/L (22-30); Chloride 92 mmol/L (98-107); Glucose 130 mg/dL (74-99); Lipase 47 U/L (23-300); Non-African American GFR(CKD) >90 (>60 ml/min/1.73 sqM); Sodium 136 mmol/L (137-145); Total Bilirubin 1.9 mg/dL (0.2-1.3); Total Protein 7.1 g/dL (6.3-8.2); VBG PH 7.41 (7.31-7.41)
--- NOTE | 2022-08-16 11:01 | XR ---
EXAMINATION TYPE: XR chest 2V DATE OF EXAM: 08/16/2022 10:56 AM COMPARISON: Chest radiographs from 04/05/2020 TECHNIQUE: XR chest 2V Frontal and lateral views of the chest. CLINICAL INDICATION:Male, 66 years old with history of abdominal pain; FINDINGS: Lungs/Pleura: There is no evidence of focal consolidation or pneumothorax. Trace left pleural effusio n. Pulmonary vascularity: Unremarkable. Heart/mediastinum: Cardiomediastinal silhouette is prominent in size. Musculoskeletal: Multiple level degenerative disc disease changes seen throughout the spine. IMPRESSION: Trace left pleural effusion.
[2022-08-16 11:08] LABS: Potassium 4.3 mmol/L (3.5-5.1)
--- NOTE | 2022-08-16 11:14 | CT ---
EXAMINATION TYPE: CT abdomen pelvis wo con CT DLP: 1437.9 mGycm, Automated exposure control for dose reduction was used. DATE OF EXAM: 08/16/2022 10:56 AM COMPARISON: CT abdomen pelvis most recent from 04/07/2020 . CLINICAL INDICATION:Male, 66 years old with history of abdominal pain; Right lower quadrant pain TECHNIQUE: Standard CT of the abdomen and pelvis without IV or oral contrast. Lack of IV or oral co ntrast limits evaluation of solid and hollow organ viscera. Coronal and sagittal reformats were perfo rmed. FINDINGS: LOWER CHEST: Small left pleural effusion with bibasilar subsegmental atelectasis. Lingular linear sca rring and/or atelectasis. ABDOMEN LIVER: Extensive portal venous gas. GALLBLADDER AND BILE DUCTS: The gallbladder is surgically absent. PANCREAS: Unremarkable noncontrast appearance SPLEEN: Unremarkable noncontrast appearance ADRENAL GLANDS: Unremarkable noncontrast appearance. KIDNEYS AND URETERS: No evidence of hydronephrosis or renal calculus. Nonspecific bilateral perinephr ic fat standing. PELVIS BLADDER: Under distended, limiting evaluation. REPRODUCTIVE: Coarse calcifications of the prostate gland are identified. Mildly enlarged prostate me asuring 5.0 cm in transverse dimension. ABDOMEN & PELVIS STOMACH AND BOWEL: Gastric distention with fluid within the distended distal esophagus. Dilated duode num. Findings consistent with small bowel obstruction with air-fluid levels and pneumatosis. The smal l bowel distends up to 4.7 cm. Transition point in the mid abdomen (series 202, image 47). No evidenc e of bowel obstruction. The appendix is within normal limits. PERITONEUM: . Trace amount of pneumoperitoneum. Small amount of ascites within the pelvis. Extensive gas within the abdominal pelvic venous vasculature. VASCULATURE: Mild atherosclerotic calcifications are present throughout the abdominal aorta and its b ranches. No evidence of aortic aneurysm. MUSCULOSKELETAL: No acute osseous abnormalities. Mild disc degeneration changes are present throughou t the thoracolumbar spine. Grade 1 anterolisthesis of L5 on S1 with bilateral pars defects. LYMPH NODES: No gross evidence for lymphadenopathy. SOFT TISSUE/ABDOMINAL WALL: Mild anasarca. IMPRESSION: 1. Small bowel obstruction with transition point in the mid lower abdomen. There is extensive pneuma tosis of the small bowel and portal venous gas with trace pneumoperitoneum. This is highly concerning for ischemia. 2. Gastric and esophageal distention related to #1. 3. Small volume ascites. 4. Small left pleural effusion. Findings called to and discussed with Dr. Hemant Beckford on 08/16/2022 at 11:09 AM.
--- NOTE | 2022-08-16 12:17 | XR ---
EXAMINATION TYPE: XR chest 1V confirm line [facility] DATE OF EXAM: 08/16/2022 12:10 PM COMPARISON: Chest radiographs from 08/16/2022 TECHNIQUE: XR chest 1V confirm line [facility] Portable AP radiograph of the chest. CLINICAL INDICATION:Male, 66 years old with history of NG; FINDINGS: Lungs/Pleura: There is no evidence of pleural effusion, focal consolidation, or pneumothorax. Chroni c senescent parenchymal change. Pulmonary vascularity: Mild pulmonary vascular congestion. Heart/mediastinum: Cardiomediastinal silhouette is prominent in size. Musculoskeletal: No acute osseous pathology. Other findings: None Lines/Tubes: Nasogastric tube with its distal tip and side-port projecting under the diaphragm and projecting over the gastric lumen. IMPRESSION: 1. NG tube in appropriate position within the stomach. 2. Mild pulmonary vascular congestion.
[2022-08-16 12:43] LABS: INR 1.3 (<1.2); Partial Thromboplastin Time 30.2 sec (22.0-30.0); Prothrombin Time 13.4 sec (9.0-12.0)
--- NOTE | 2022-08-16 12:45 | P.GSHP ---
History of Present Illness H&P Date: 08/16/22 The patient's a 66 [id number] man that presented to the ER with abdominal pain, nausea with vomiting and diarrhea for the last 3 days. He's been having dry heaves. He's never had anything like this in the past. The patient was worked up in the ER and CT suggestive of free air, free fluid and portal venous gas. Denies any previous abdominal surgery although he did have a incarcerated inguinal hernia repair some years ago. He hasn't seen a doctor in about 20 years per a sister. Denies any chest pain. Denies shortness of breath but becomes very hypoxic if he's off the oxygen. The patient is a smoker. He is not aware of any heart disease. - Review of Systems All systems: negative Past Medical History Past Medical History: Asthma, Diabetes Mellitus, Hypertension, Respiratory Disorder Additional Past Medical History / Comment(s): borderline hypertension, borderline diabetes; empysema, asthma, chronic low back pain and knee pain History of Any Multi-Drug Resistant Organisms: MRSA Date of last positivie culture/infection: 1997 MDRO Source:: right leg Past Surgical History: Back Surgery, Orthopedic Surgery (Ankle and toe amputations were due to a fall off of a barn with subsequent infection.), Tonsillectomy Additional Past Surgical History / Comment(s): Bone grafts to right leg, right foot amputation, left toe amputations, larynx surgery, left knee athroscopies, multiple falls Past Anesthesia/Blood Transfusion Reactions: No Reported Reaction Past Psychological History: Anxiety, Depression Smoking Status: Former smoker Medications and Allergies Home Medications Medication Instructions Recorded Confirmed Type No Known Home Medications 08/16/22 08/16/22 History Allergies Allergy/AdvReac Type Severity Reaction Status Date / Time codeine Allergy Rash/Hives Verified 08/16/22 12:20 Surgical - Exam Osteopathic Statement: *. No significant issues noted on an osteopathic structural exam other than those noted in the History and Physical/Consult. Vital Signs Temp Pulse Resp BP Pulse Ox 102.2 F H 117 H 18 131/85 72 L 08/16/22 10:22 08/16/22 10:22 08/16/22 10:22 08/16/22 10:22 08/16/22 10:22 - General Diaphoretic, appears ill - Eyes normal ocular movement - Neck trachea midline - Respiratory normal expansion, clear to auscultation - Cardiovascular Rhythm: regular (Tachycardic) - Abdomen Abdomen: tender (Diffuse tenderness), rebound, distended - Integumentary Mottling is noted on bilateral lower extremities, the patient feels this is normal for him. Patient's family is unsure if this is normal - Musculoskeletal Right foot is surgically absent, has evidence of toe amputations on the left - Psychiatric oriented to time, oriented to person, oriented to place, speech is normal, memory intact Results - Labs 08/16/22 10:36 08/16/22 10:36 Abnormal Lab Results - Last 24 Hours (Table) 08/16/22 08/16/22 08/16/22 Range/Units 10:36 10:36 10:36 WBC 17.7 H (3.8-10.6) k/uL RBC 6.73 H (4.30-5.90) m/uL Hct 58.0 H* (39.0-53.0) % MCHC 29.8 L (31.0-37.0) g/dL RDW 17.9 H (11.5-15.5) % Neutrophils # 15.3 H (1.3-7.7) k/uL Lymphocytes # 0.5 L (1.0-4.8) k/uL Monocytes # 1.7 H (0-1.0) k/uL VBG pCO2 (37-51) mmHg VBG HCO3 (24-28) mmol/L Sodium 136 L (137-145) mmol/L Chloride 92 L (98-107) mmol/L Carbon Dioxide 38 H (22-30) mmol/L Creatinine 0.57 L (0.66-1.25) mg/dL Glucose 130 H (74-99) mg/dL Plasma Lactic Acid Edwardo 3.1 H* (0.7-2.0) mmol/L Total Bilirubin 1.9 H (0.2-1.3) mg/dL Troponin I (0.000-0.034) ng/mL 08/16/22 08/16/22 Range/Units 10:36 10:36 WBC (3.8-10.6) k/uL RBC (4.30-5.90) m/uL Hct (39.0-53.0) % MCHC (31.0-37.0) g/dL RDW (11.5-15.5) % Neutrophils # (1.3-7.7) k/uL Lymphocytes # (1.0-4.8) k/uL Monocytes # (0-1.0) k/uL VBG pCO2 59 H (37-51) mmHg VBG HCO3 38 H (24-28) mmol/L Sodium (137-145) mmol/L Chloride (98-107) mmol/L Carbon Dioxide (22-30) mmol/L Creatinine (0.66-1.25) mg/dL Glucose (74-99) mg/dL Plasma Lactic Acid Edwardo (0.7-2.0) mmol/L Total Bilirubin (0.2-1.3) mg/dL Troponin I 0.699 H* (0.000-0.034) ng/mL Diabetes panel 08/16/22 Range/Units 10:36 Sodium 136 L (137-145) mmol/L Potassium 4.3 (3.5-5.1) mmol/L Chloride 92 L (98-107) mmol/L Carbon Dioxide 38 H (22-30) mmol/L BUN 19 (9-20) mg/dL Creatinine 0.57 L (0.66-1.25) mg/dL Glucose 130 H (74-99) mg/dL Calcium 8.4 (8.4-10.2) mg/dL AST 58 (17-59) U/L ALT 32 (4-49) U/L Alkaline Phosphatase 81 (38-126) U/L Total Protein 7.1 (6.3-8.2) g/dL Albumin 3.7 (3.5-5.0) g/dL Calcium panel 08/16/22 Range/Units 10:36 Calcium 8.4 (8.4-10.2) mg/dL Albumin 3.7 (3.5-5.0) g/dL Pituitary panel 08/16/22 Range/Units 10:36 Sodium 136 L (137-145) mmol/L Potassium 4.3 (3.5-5.1) mmol/L Chloride 92 L (98-107) mmol/L Carbon Dioxide 38 H (22-30) mmol/L BUN 19 (9-20) mg/dL Creatinine 0.57 L (0.66-1.25) mg/dL Glucose 130 H (74-99) mg/dL Calcium 8.4 (8.4-10.2) mg/dL Adrenal panel 08/16/22 Range/Units 10:36 Sodium 136 L (137-145) mmol/L Potassium 4.3 (3.5-5.1) mmol/L Chloride 92 L (98-107) mmol/L Carbon Dioxide 38 H (22-30) mmol/L BUN 19 (9-20) mg/dL Creatinine 0.57 L (0.66-1.25) mg/dL Glucose 130 H (74-99) mg/dL Calcium 8.4 (8.4-10.2) mg/dL Total Bilirubin 1.9 H (0.2-1.3) mg/dL AST 58 (17-59) U/L ALT 32 (4-49) U/L Alkaline Phosphatase 81 (38-126) U/L Total Protein 7.1 (6.3-8.2) g/dL Albumin 3.7 (3.5-5.0) g/dL - Imaging CT scan - abdomen: report reviewed, image reviewed Assessment and Plan (1) Small bowel obstruction Current Visit: Yes Status: Acute Code(s): K56.609 - UNSP INTESTNL OBST, UNSP TO PARTIAL VERSUS COMPLETE OBST SNOMED Code(s): 120232972 (2) Sepsis Current Visit: Yes Status: Acute Code(s): A41.9 - SEPSIS, UNSPECIFIED ORGANISM SNOMED Code(s): 49874151 (3) Smoker Current Visit: Yes Status: Acute Code(s): F17.200 - NICOTINE DEPENDENCE, UNSPECIFIED, UNCOMPLICATED SNOMED Code(s): 03711781 (4) Hypoxia Current Visit: Yes Status: Acute Code(s): R09.02 - HYPOXEMIA SNOMED Code(s): 622387239 (5) Elevated troponin Current Visit: Yes Status: Acute Code(s): R77.8 - OTHER SPECIFIED ABNORMALITIES OF PLASMA PROTEINS SNOMED Code(s): 920171390 Plan: Patient likely has acute surgical abdomen due to gangrenous small intestine. Due to this he is septic with some free fluid and extensive portal venous gas. He likely has cardiac ischemia due to the sepsis. Explained to patient and family that he is extremely ill. With the preoperative findings I think he is at high risk for significant complications including . Need to go to the OR for exploratory laparotomy and likely bowel resection. He may not be able to be safely anastomosed. Postoperatively he will go to the ICU in likely be on a ventilator. Receive broad-spectrum antibiotics and supportive care. DVT and ulcer prophylaxis. Cardiology will see him postoperatively as well the loom cleaner in the ICU. NG output is bloody so the CBC will be closely monitored. Patient's and family's questions or encouraged and answered. Overall prognosis is poor
--- NOTE | 2022-08-16 12:55 | P.CRDCN ---
History of Present Illness Consult date: 08/16/22 Chief complaint: Abdominal discomfort History of present illness: This is a 66-year-old gentleman with a past medical history significant for low er extremity PAD with a prior right below the knee amputation as well as significant history of smoking presented to the hospital complaining of abdominal discomfort. The patient stated that the discomfort was started about 3 days ago. No shortness of breath and no dizziness or lightheadedness and no feeling of heart racing or fluttering. He was seen in the emergency department earlier today when he presented and he underwent further cardiac evaluation including an EKG which showed sinus mechanism was low voltage QRS and diffuse nonspecific ST and T wave abnormalities. His troponin was checked and came in to be elevated at 0.6. He also underwent further investigation for the abdominal discomfort and that includes a computed tomography scan of the abdomen and pelvis and that revealed distention in the stomach and esophageal associated with small bowel obstruction. An NG tube was placed and patient was experiencing what it seems to be gastrointestinal bleeding. Also the computed t omography scan showed pneumoperitoneum. The decision is made toward exploratory laparotomy later on today we consulted to see the patient for preoperative cardiac assessment. Currently the patient is not experiencing any ongoing chest pain or chest discomfort and he doesn't seems to be in any overt congestive heart failure and has been maintaining normal sinus mechanism. He is hypoxic requiring high flow oxygen. His chest x-ray did not show any evidence of acute abnormalities. With being tachycardic and with elevation in the troponin which could be related to sinus tachycardia and hypoxemia CTA of the chest is to be done to rule out submassive pulmonary embolism which could be responsible for the hypoxemia as as elevation in the troponin. The patient is not aware of any prior history of coronary artery disease or congestive heart failure or cardiac arrhythmia T does have multiple risk factors including history of smoking and history of lower extremity PAD. He did not see a physician in a long time. He is not very active physically as well because of the amputation and unfortu nately he continues to smoke until recently. The hemoglobin is a stable. The kidney function is stable was GFR above 60. The examination is remarkable for a patient who is on oxygen with Ventimask and also with stable vital signs beside mild sinus tachycardia with regular rate and rhythm and distant heart sounds and clear breathing sounds bilaterally and no lower extremity edema noted. Assessment Acute surgical abdomen Evidence of pneumoperitoneum and evidence of small bowel obstruction on the computed tomography scan Evidence of myocardial injury was no evidence of ischemia clinically or by EKG Hypoxemia. Rule out pulmonary embolism History of smoking Lower extremity is PAD Plan The surgery is urgent/emergent. The patient needs to proceed with the surgery Rule out pulmonary embolism by obtaining computed tomography scan of the chest Obtain an echocardiogram was Doppler for further risk stratification The patient currently on any anticoagulation in the light of gastrointestinal bleeding Follow-up with the patient Past Medical History Past Medical History: Asthma, Diabetes Mellitus, Hypertension, Respiratory Disorder Additional Past Medical History / Comment(s): borderline hypertension, borderline diabetes; empysema, asthma, chronic low back pain and knee pain History of Any Multi-Drug Resistant Organisms: MRSA Date of last positivie culture/infection: 1997 MDRO Source:: right leg Past Surgical History: Back Surgery, Orthopedic Surgery (Ankle and toe amputations were due to a fall off of a barn with subsequent infection.), Tonsillectomy Additional Past Surgical History / Comment(s): Bone grafts to right leg, right foot amputation, left toe amputations, larynx surgery, left knee athroscopies, multiple falls Past Anesthesia/Blood Transfusion Reactions: No Reported Reaction Past Psychological History: Anxiety, Depression Smoking Status: Former smoker Medications and Allergies Home Medications Medication Instructions Recorded Confirmed Type No Known Home Medications 08/16/22 08/16/22 History Allergies Allergy/AdvReac Type Severity Reaction Status Date / Time codeine Allergy Rash/Hives Verified 08/16/22 12:20 Physical Exam Vitals: Vital Signs Temp Pulse Resp BP Pulse Ox 08/16/22 12:14 118 H 30 H 170/83 94 L 08/16/22 12:00 127/81 08/16/22 11:53 118 H 32 H 127/81 90 L 08/16/22 11:40 34 H 129/102 93 L 08/16/22 11:20 123 H 28 H 135/101 08/16/22 11:00 120 H 36 H 131/85 94 L 08/16/22 10:40 113 H 10 L 131/85 97 08/16/22 10:37 114 H 18 131/85 94 L 08/16/22 10:36 93 L 08/16/22 10:35 85 L 08/16/22 10:29 85 L 08/16/22 10:22 102.2 F H 117 H 18 131/85 72 L Intake and Output 08/15/22 08/16/22 08/16/22 22:59 06:59 14:59 Output Total 2400 Balance -2400 Output: Gastric Drainage 2400 Other: Weight 113.398 kg Results 08/16/22 10:36 08/16/22 10:36 Cardiac Enzymes 08/16/22 08/16/22 Range/Units 10:36 10:36 AST 58 (17-59) U/L Troponin I 0.699 H* (0.000-0.034) ng/mL Coagulation 08/16/22 Range/Units 12:15 PT 13.4 H (9.0-12.0) sec APTT 30.2 H (22.0-30.0) sec CBC 08/16/22 Range/Units 10:36 WBC 17.7 H (3.8-10.6) k/uL RBC 6.73 H (4.30-5.90) m/uL Hgb 17.3 (13.0-17.5) gm/dL Hct 58.0 H* (39.0-53.0) % Plt Count 180 (150-450) k/uL Comprehensive Metabolic Panel 08/16/22 Range/Units 10:36 Sodium 136 L (137-145) mmol/L Potassium 4.3 (3.5-5.1) mmol/L Chloride 92 L (98-107) mmol/L Carbon Dioxide 38 H (22-30) mmol/L BUN 19 (9-20) mg/dL Creatinine 0.57 L (0.66-1.25) mg/dL Glucose 130 H (74-99) mg/dL Calcium 8.4 (8.4-10.2) mg/dL AST 58 (17-59) U/L ALT 32 (4-49) U/L Alkaline Phosphatase 81 (38-126) U/L Total Protein 7.1 (6.3-8.2) g/dL Albumin 3.7 (3.5-5.0) g/dL Intake and Output 08/15/22 08/16/22 08/16/22 22:59 06:59 14:59 Output Total 2400 Balance -2400 Output: Gastric Drainage 2400 Other: Weight 113.398 kg Patient Weight 08/17/22 06:59 Weight 113.398 kg 08/16/22 10:36 08/16/22 10:36
[2022-08-16] MEDS ORDERED: ENOXAPARIN 40 MG/0.4 ML SYRINGE SQ STA (12:59)
[2022-08-16 13:00] VITALS: BP 113/86
--- NOTE | 2022-08-16 13:13 | CT ---
EXAMINATION TYPE: CT chest angio for PE CT DLP: 767.8 mGycm, Automated exposure control for dose reduction was used. DATE OF EXAM: 08/16/2022 12:57 PM COMPARISON: . Chest radiograph from same day. Multiple CTs of the chest with most recent on . CLINICAL INDICATION:Male, 66 years old with history of Hypoxia; Hypoxia TECHNIQUE/CONTRAST: CTA scan of the thorax is performed with IV Contrast, patient injected with 100, wasted 17 ml mL of I sovue 370, pulmonary embolism protocol. MIP images are created and reviewed. FINDINGS: Motion degraded examination. Pulmonary Artery: There is no evidence for a central filling defect within the pulmonary vasculature to suggest acute pulmonary embolism. Limited evaluation of the segmental and subsegmental branches se condary to bolus timing. The pulmonary artery is dilated measuring 4.1 cm in diameter. Lungs/Pleura: Respiratory motion artifact limits evaluation. Small left pleural effusion. Bibasilar c ells atelectasis. Airway: Large airways are patent. Heart: Mildly prominent size. No pericardial effusion.. Vasculature: Ascending thoracic aortic aneurysm measuring up to 4.1 cm. The descending thoracic aorta is ectatic measuring up to 2.9 cm. Mediastinum: No gross evidence of adenopathy. Musculoskeletal: No acute osseous abnormalities Soft Tissues: Diffuse anasarca. Lower neck: No significant findings. Upper Abdomen: Please refer to CT abdomen pelvis of same day for findings. Portal venous gas identifi ed within the left hepatic lobe. Post cholecystectomy changes. Trace pneumoperitoneum. Partially visu alized dilated small bowel and pneumatosis. NG tube is appropriately positioned within the stomach. T here is been interval decreased distention of the stomach. Patulous mildly distended esophagus. IMPRESSION: Motion degraded examination. 1. No evidence of central pulmonary embolism. Limited evaluation of the segmental and subsegmental br anches. 2. Small left pleural effusion. 3. Ascending thoracic aortic aneurysm measuring up to 4.1 cm with ectasia of the descending thoracic aorta measuring up to 2.9 cm. Dilatation of main pulmonary artery which can be seen in setting of pul monary arterial hypertension. 4. NG tube in appropriate position with decreased distention of the stomach. There is continued mild distention of the distal esophagus. 5. Redemonstration of pneumoperitoneum with dilated small bowel and pneumatosis and portal venous gas again concerning for ischemic bowel from earlier CT abdomen pelvis.
[2022-08-16] MEDS ORDERED: SUCCINYLCHOLINE CHLORIDE 200 MG/10 ML VIAL IV ONE (13:20)
[2022-08-16] MEDS ORDERED: ETOMIDATE 2 MG/ML 10 ML VIAL ONE (13:20)
[2022-08-16] MEDS ORDERED: LIDOCAINE 2% INJ 20 MG/ML (2 ML VIAL) ONE (13:20)
[2022-08-16] MEDS ORDERED: ROCURONIUM 10 MG/ML (5 ML VIAL) IV ONE (13:20)
[2022-08-16] MEDS ORDERED: PHENYLEPHRINE-0.9% NACL SYG 1,000 MCG/10 ML SYRINGE ONE (13:20)
[2022-08-16] MEDS ORDERED: fentaNYL (PF) 50 MCG/ML 2 ML AMP ONE (13:20)
[2022-08-16] MEDS ORDERED: MIDAZOLAM 2 MG/2 ML VIAL ONE (13:20)
[2022-08-16] MEDS ORDERED: IV FLUID CONTINUATION 1,000 ML IV ONE (13:32)
[2022-08-16] MEDS ORDERED: LACTATED RINGERS 1,000 ML IV ONE (13:45)
[2022-08-16] MEDS ORDERED: NOREPINEPHRINE 4 MG in SODIUM CHLORIDE 0.9% 250 ML IV SCH (14:15)
[2022-08-16] MEDS ORDERED: NOREPINEPHRINE 4 MG in SODIUM CHLORIDE 0.9% 250 ML IV ONE (14:15)
[2022-08-16] MEDS ORDERED: HYDROmorphone 1 MG/ML 1 ML SYRINGE IVP PRN (14:22)
--- NOTE | 2022-08-16 14:27 | P.OP ---
Date of Procedure: 08/16/22 Preoperative Diagnosis: Sepsis, free air, small bowel obstruction Postoperative Diagnosis: Sepsis, free air, ischemic bowel Procedure(s) Performed: Exploratory laparotomy Anesthesia: MATT Surgeon: Rosa Gonzales Estimated Blood Loss (ml): 25 Pathology: none sent Condition: critical Disposition: ICU Indications for Procedure: Patient presented to the ER acutely ill with findings on CT suggestive of ischemic bowel with free air, free fluid and portal venous gas. He was extremely hypoxic and acidotic. Description of Procedure: Patient is taken to the OR where he is prepped and draped in the usual sterile manner under a general endotracheal anesthetic. The abdomen was entered through a midline incision. There was free air along with bloody fluid throughout the abdomen with the typical aroma of bowel. The small bowel was brought out through the incision. There was a 3-4 cm segment of very proximal jejunum was viable otherwise the entirety of the rest of bowel was necrotic. He was not tolerating anesthesia well with hypotension. This does not appear to be surgically correctable. Therefore the abdomen was closed with 1 PDS and the skin was closed with savi. Dressing was applied. He will be taken to ICU on the ventilator and made comfort care.
[2022-08-16 14:43] LABS: Glucose,Whole Blood 108 mg/dL (70-110)
[2022-08-16] MEDS ORDERED: GLYCOPYRROLATE 0.2 MG/ML 2 ML VIAL IVP PRN (14:53)
[2022-08-16] MEDS ORDERED: ATROPINE OPHTH SOLN 1% 5ML BTL SUBLINGUAL PRN (14:53)
[2022-08-16] MEDS ORDERED: LORazepam 2 MG/ML INJ IV PRN (14:53)
[2022-08-16] MEDS ORDERED: MORPHINE SULFATE (100 MG/2 ML) 100 MG in SODIUM CHLORIDE 0.9% 100 ML IV SCH (15:00)
[2022-08-16] MEDS ORDERED: SCOPOLAMINE 1 MG/72 HR PATCH TRANSDERM SCH (15:00)
[2022-08-16] MEDS: MORPHINE SULFATE 4 MG/ML SYRINGE IV PRN ×3 (15:05→16:12)
[2022-08-16 15:28] VITALS: PULSE 108; RESP 16
--- NOTE | 2022-08-17 11:24 | P.DS ---
Providers Date of admission: 08/16/22 13:19 Expected date of discharge: 08/16/22 Attending physician: Rosa Gonzales Consults: 08/16/22 13:00 Consult Physician Urgent Consulting Provider: Sony Medina Consult Reason/Comments: Elevated troponin Do you want consulting provider notified?: Yes 08/16/22 14:03 Consult Physician Stat Consulting Provider: Celio Miller Reason/Comments: ICU/vent management Do you want consulting provider notified?: Already Contacted Primary care physician: Stated None - Discharge Diagnosis(es) (1) Small bowel obstruction Status: Acute (2) Sepsis Status: Acute (3) Smoker Status: Acute (4) Hypoxia Status: Acute (5) Elevated troponin Status: Acute (6) Ischemic necrosis of small bowel Status: Acute Hospital Course: The patient presented to the ER with a 3-day history of abdominal pain, pain, diarrhea. Work-up in the emergency department showed lactic acidosis. CT scan showed free air and free fluid along with portal venous gas. This was suggestive of ischemic bowel. The patient was taken to the OR for an exploratory laparotomy was carried out. The entirety of the small bowel was necrotic. This was not a salvageable condition. This was discussed with family. He was taken to the ICU extubated and placed on comfort care measures. Patient shortly after this. Plan - Discharge Summary New Discharge Prescriptions: No Action No Known Home Medications Discharge Medication List No Known Home Medications 08/16/22 [History] Follow up Appointment(s)/Referral(s): None,Stated [Primary Care Provider] - 1-2 days Discharge Disposition: - Preliminary Cause of Preliminary Cause of : Sepsis due to small bowel ischemia and necrosis
--- NOTE | 2022-08-17 17:02 | P.ANPRN ---
Procedure Note - Anesthesia - Invasive Line Left Arterial Line Time Out Performed: Yes Date of Procedure: 08/16/22 Time of Procedure: 13:16 Location of Patient: PreOp Preparation: Sterile Prep, Sterile Dressing Arterial Line Location: Radial Ultrasound Used: No Purpose - Visualization and Identification of Vasculature: No Image Stored and Saved: No Narrative: Central line placement per sterile protocol utilized.
--- NOTE | 2022-08-18 11:47 | CDI ---
Documentation Clarification Form Date: 08/18/22 From: Kourtney Ayers Admit Date: 08/16/2022 01:19:00 PM Patient Name: Parish Zapien Visit Number: [id number] Discharge Date: 08/16/2022 05:50:00 PM ATTENTION: The Clinical Documentation Specialists (CDI) and [facility] Coding Staff appreciate your assistance in clarifying documentation. Please respond to the clarification below the line at the bottom and electronically sign. The CDI & [facility] Coding staff will review the response and follow-up if needed. Please note: Queries are made part of the Legal Health Record. If you have any questions, please contact the author of this message via ITS. Dr. Rosa Gonzales, Your patient has documented in the ED Note hypoxia, in the procedure note he was extremely hypoxic and acidotic and in the DS Hypoxia. Based on this information and the findings below, is there an additional diagnosis that is clinically appropriate for this patient? History/Risk Factors: emphysema, asthma, HTN w CHF Tobacco use: history of Home oxygen: none Clinical Indicators: Sodium 136, Chloride 92, CO2 38, Glucose 130, plasma lactic acid Edwardo 3.1, total Bilirubin 1.9, Troponin 0.699 Vital signs: T 102.2, P 117, R 18, BP 131/85 O2 Sat 72 Lung/Breathing assessment: Placed on ventilator in OR on 08/16 and extubated 08/16. VBG: pH 7.41 pCO2 59, HCO3 38 Treatment: Underwent exploratory laparotomy, placed on mechanical ventilation in surgery and extubated on same day. Patient was made a DNR and comfort care. Is there an additional diagnosis that is clinically appropriate for this patient? [ ] Acute Hypoxic Respiratory Failure (pO2 <60 mm Hg or SpO2 <91% on room air) [ ] Acute Hypercapnic Respiratory Failure (pCO2 >50 and pH <7.35) [ ] Acute on Chronic Respiratory Failure [ ] Chronic Respiratory Failure [ ] Acute Respiratory Distress [ ] Acute Respiratory Insufficiency [ ] Other Diagnosis, please specify [ ] Unable to determine no MTDD
--- NOTE | 2022-08-20 14:27 | CDI ---
Documentation Clarification Form Date: 08/20/2022 02:11:54 PM From: Estephanie Ledbetter RN CCDS Email: [email or web address] Admit Date: 08/16/2022 01:19:00 PM Patient Name: Parish Zapien Visit Number: [id number] Discharge Date: 08/16/2022 05:50:00 PM ATTENTION: The Clinical Documentation Specialists (CDI) and [facility] Coding Staff appreciate your assistance in clarifying documentation. Please respond to the clarification below the line at the bottom and electronically sign. The CDI & [facility] Coding staff will review the response and follow-up if needed. Please note: Queries are made part of the Legal Health Record. If you have any questions, please contact the author of this message via ITS. Dr. Rosa Gonzales Your patient had a necrotic bowel and was septic. Based on this information and the findings below, is there an additional diagnosis that is clinically appropriate for this patient? Patient history/risk factors: asthma, DM, HTN, respiratory disorder, right foot amputation. Came in with abdominal pain, N/V/D. Admitted with sepsis due to small bowel ischemia and necrosis. Clinical Indicators: 08/16 Labs: WBC 17.7, lactic acid 3.1, troponin 0.699 08/16 VS: Temp 102.2, HR 103-123, RR 10-34, BP 135/101-84/67 Procedure note: "He was extremely hypoxic and acidotic. There was free air along with bloody fluid throughout the abdomen with the typical aroma of bowel. There was a 3-4 cm segment of very proximal jejunum was viable otherwise the entirety of the rest of bowel was necrotic. He was not tolerating anesthesia well with hypotension. He will be taken to ICU on the ventilator and made comfort care. " Treatment: Exploratory laparotomy. IV Zosyn 3.375gm x1. 1.5L bolus of 0.9 NS. Arterial line insertion. Oxygen supplementation with NRB mask. Is there an additional diagnosis that is clinically appropriate for this patient? [ ] Septic shock [ ] No additional diagnosis/Not clinically significant [ ] Unable to determine [ ] Other, please specify MTDD
== END 2022-08-16 17:50 | disposition expired | DRG 853 ==
LOC: EC 10:21 → 2SICU 13:19
PROVIDERS: ADMIT Surgery; ATTEND Surgery
PROC: 0WJG0ZZ Inspection of Peritoneal Cavity, Open Approach (ICD-10-PCS; principal; 2022-08-16 12:30)
DX: A41.9 Sepsis, unspecified organism (principal); K55.029 Acute infarction of small intestine, extent unspecified; K56.609 Unspecified intestinal obstruction, unspecified as to partial versus complete obstruction; I5A Non-ischemic myocardial injury (non-traumatic); J43.9 Emphysema, unspecified; I73.9 Peripheral vascular disease, unspecified; Z89.511 Acquired absence of right leg below knee; Z66 Do not resuscitate; Z51.5 Encounter for palliative care; I10 Essential (primary) hypertension; R73.03 Prediabetes; R09.02 Hypoxemia; G89.29 Other chronic pain; M54.50 Low back pain, unspecified; M25.569 Pain in unspecified knee; F41.9 Anxiety disorder, unspecified; R29.6 Repeated falls; F32.A Depression, unspecified; Z87.891 Personal history of nicotine dependence; Z86.14 Personal history of Methicillin resistant Staphylococcus aureus infection; Z91.81 History of falling; Z88.5 Allergy status to narcotic agent
CPT/HCPCS: 36415; 43753; 71046; 71275; 74176; 80053; 82150; 82803; 83605; 83690; 84484; 85025; 85610; 85730; 86850; 86900; 86901; 87040; 93005; 94002; 96361; 96365; 96375; 96376; 99285